=== PATIENT | male | born 1975 | race Caucasian/White ===

== ENCOUNTER 2019-07-31 13:15 | Emergency (ER) | payer OTHER, MEDICAID, SELFPAY ==
[2019-07-31 13:25] VITALS: BP 172/104; PULSE 70; RESP 16; TEMP 37.2; O2SAT 97
--- NOTE | 2019-07-31 15:07 | ED.BACK ---
HPI - Back Pain/Injury General Chief Complaint: Back Pain/Injury Stated Complaint: hurt spine/pain started 4 weeks ago/cant feel foot Time Seen by Provider: 07/31/19 13:52 Source: patient Mode of arrival: Ambulatory Limitations: no limitations History of Present Illness HPI Narrative: Patient comes emergency department complaining of low back pain and left foot numbness that his gotten progressively worse over the last few weeks. The patient has also had intermittent pain shooting down through his left buttock to his knee. Patient states that he injured his back about a year ago while doing some heavy lifting. He never did have any medical evaluation at that time and states that he has had some back pain since but that has been manageable. However, about a month and half ago, the pain seemed to start getting worse and patient states that he was seen at the [facility], at which time he was started on a prednisone taper. Patient states he felt much better on the taper. However, the pain began to get worse again after the steroid course was completed. Patient states he made an appointment with his new primary care physician's office, but he is not able to be seen by that clinic until late August. Patient states that his left foot is now completely numb and that sometimes he has difficulty picking the foot up because the numbness. Patient denies any difficulty controlling bowels or bladder. Related Data Home Medications Medication Instructions Recorded Confirmed ibuprofen 200 mg PO PRN PRN 07/31/19 07/31/19 Previous Rx's Medication Instructions Recorded hydrocodone-acetaminophen 2 tab PO Q4H PRN #20 tab 07/31/19 prednisone See Rx Instructions .ROUTE 07/31/19 .COMPLEX #39 tab Allergies Allergy/AdvReac Type Severity Reaction Status Date / Time No Known Drug Allergies Allergy Verified 07/31/19 14:49 Review of Systems Constitutional Constitutional: Denies chills, Denies fatigue, Denies fever(s), Denies frequent falls, Denies lethargy and Denies weakness Eyes Eyes: Denies change in vision, Denies eye discharge, Denies irritation and Denies loss of vision ENT Ears, Nose, Mouth, and Throat: Denies change in voice, Denies dizziness, Denies neck pain, Denies sore throat and Denies throat swelling Cardiovascular Cardiovascular: Denies chest pain, Denies irregular heart rhythm, Denies lightheadedness, Denies palpitations, Denies dyspnea, Denies dyspnea on exertion and Denies orthopnea Respiratory Respiratory: Denies cough, Denies dyspnea, Denies dyspnea on exertion and Denies wheezing Gastrointestinal Gastrointestinal: Denies abdominal pain, Denies change in bowel habits, Denies diarrhea, Denies nausea and Denies vomiting Genitourinary Genitourinary: Denies hematuria, Denies flank pain, Denies urinary incontinence and Denies urinary urgency Musculoskeletal Musculoskeletal: Reports back pain, Denies muscle weakness, Denies neck pain, Reports numbness and Denies tingling Integumentary/Breasts Skin/Breast: Denies pruritus, Denies erythema, Denies rash and Denies wounds Neurologic Neurologic: Denies behavioral changes, Denies confusion, Denies dizziness, Denies frequent falls, Denies loss of vision, Reports numbness, Denies tingling and Denies weakness Psychiatric Psychiatric: Denies anxiety, Denies behavioral changes, Denies confusion, Denies depression, Denies homicidal ideation and Denies suicidal ideation Endocrine Endocrine: Denies fatigue, Denies flushing and Denies palpitations Hematologic/Lymphatic Hematologic/Lymphatic: Denies easy bruising Allergic/Immunologic Allergic/Immunologic: Denies urticaria, Denies throat swelling and Denies wheezing Patient History Medical History Low back pain (Acute) Social History Smoking Status: Former smoker Smoking Status: Former smoker Exam Initial Vital Signs Initial Vital Signs: Vital Signs Temperature 99.0 F 07/31/19 13:25 Pulse Rate 70 07/31/19 13:25 Respiratory Rate 16 07/31/19 13:25 Blood Pressure 172/104 H 07/31/19 13:25 Pulse Oximetry 97 07/31/19 13:25 Const General: cooperative and well developed Nutritional Appearance: well nourished Orientation: alert, awake, oriented x3 and not confused [facility] Head: normocephalic and atraumatic Ears: external ears normal Nose: external nose normal and No nasal discharge Face and sinus: face symmetric and No dry mucous membranes Mouth: oral mucosae normal and moist mucous membranes Teeth and gingiva: dentition normal Eyes General: appearance normal, both eyes and all related structures Eyelids: eyelids normal Conjunctivae: conjunctivae normal Sclera: sclerae normal Pupils: PERRL EOM: EOM intact bilaterally Neck Neck: normal visual inspection, trachea midline, No lymphadenopathy, No midline deformity and No JVD Lymphatic: No lymphedema Chest Chest: normal inspection of the chest Resp Effort & Inspection: normal respiratory effort, able to speak in complete sentences, no respiratory distress and no use of accessory muscles Auscultation: clear to auscultation bilaterally, no rales, no rhonchi and no wheezes Cardio Rate: regular rate Rhythm: regular rhythm Heart Sounds: no click, no gallops, no murmurs and no rubs Pulses: normal peripheral pulses GI Inspection: non-distended Palpation: soft, no hepatosplenomegaly, No guarding, No pulsatile mass and No tender Auscultation: normal bowel sounds Back/Spine/Pelvis Cervical Spine: cervical ROM normal Other: Patient has tenderness of the left lumbar paraspinal musculature along the L4-5 area maximally he, with diminishing tenderness more superiorly. No tenderness or step-off of the spine itself. Skin General: no rashes or lesions noted, No jaundice and No petechiae Neuro General: alert, awake, oriented x3, gait normal and no focal motor deficits Cranial Nerves: CN's II-XI intact bilaterally Cognition: normal cognition Speech: speech normal Motor: muscle tone normal throughout Other: Patient walks somewhat stiffly but on a narrow based gait. No foot drop is appreciated exam. Extrem General: full ROM, no clubbing, cyanosis or edema, no pedal edema and no calf tenderness Psych Appearance: well kempt Mental Status: mental status grossly normal Attitude: cooperative Thought Content: normal and suicidality Judgment: judgment good Course Course Course Narrative: The patient was treated symptomatically with Toradol and prednisone in the emergency department and sent for a noncontrast MRI of the low spine. This did show degenerative changes and an annular tear. The changes were mostly right-sided, and I discussed with the patient that his left-sided symptoms may be due to posturing or favoring the right side. He does have some sciatic and radicular symptoms, and we have discussed symptomatic management at home, as well as the usual indications for return. I've also refilled the patient's antihypertensives. We did call the patient's primary care clinic and have been able to move his appointment up to August 08. The patient is agreeable to this plan. I've prescribed prednisone and hydrocodone for the patient for home. Orders Ordered: ED Orders 07/31/19 15:11 MR lumbar spine wo con Stat Discontinued Medications Ketorolac Tromethamine (Toradol) 30 mg IM NOW ONE Stop: 07/31/19 15:05 Last Admin: 07/31/19 15:18 Dose: 30 mg Documented by: Prednisone (Deltasone) 60 mg PO NOW ONE Stop: 07/31/19 15:05 Last Admin: 07/31/19 15:17 Dose: 60 mg Documented by: Vital Signs Vital signs: Vital Signs - 8 hr 07/31/19 13:25 Temperature 99.0 F Pulse Rate 70 Respiratory Rate 16 Blood Pressure 172/104 H Pulse Oximetry 97 MDM - Back Pain/Injury Medical Records Attestation: I reviewed the patient's medical records. Imaging Data MRI lumbar spine: Radiologist's Impression: PROCEDURE: MR LUMBAR SPINE WO CON INDICATIONS: low back pain, progressive LLE numbness, foot drop TECHNIQUE: Noncontrast sagittal T1 spin echo and T2 fast echo, sagittal STIR, axial T1 and T2 fast spin echo through the lumbar spine. In cases with scoliosis, additional coronal T2 fast spin echo may be performed. COMPARISON: None. FINDINGS: Image quality: Excellent. Alignment and Curvature: Minimal levoconvex scoliotic curvature is seen. Minimal retrolisthesis is seen at L3-L4. Minimal anterolisthesis is seen at the L4-L5 level. Bone Marrow: Marrow is of normal overall signal. No acute vertebral body compression fractures. Spinal Cord: Conus medullaris terminates at the T12-L1 level. Visualized cord demonstrates normal signal and size. Paraspinous Soft Tissues: No paravertebral masses. T12-L1: Normal appearance. L1-L2: Normal appearance. L2-L3: The disc height is well-preserved. Loss of disc signal is seen at this level. There is a faintly seen annular fissure present severely, as on series 2 image 10. Mild generalized disc bulge is seen. No significant neural foraminal or central canal narrowing can be seen. L3-L4: The disc height is well-preserved. Loss of disc signal is seen at this level. Mild to moderate disc bulge is seen, which is eccentric to the left. [id number] facet hypertrophy is seen. There is moderate bilateral neural foraminal narrowing seen at this level. Mild to moderate central canal narrowing is seen. L4-L5: The disc height and disc signal are relatively well-preserved. Moderate disc bulge is seen, which is eccentric to the right. Moderate facet joint hypertrophy is seen. There is moderate to severe right-sided neural foraminal narrowing seen, with associated compression upon the exiting right L4 nerve root. There is moderate left-sided neural foraminal narrowing seen. Moderate central canal narrowing is seen at L5-S1: Normal appearance. IMPRESSION: Degenerative changes are seen, including moderate to severe right-sided neural foraminal narrowing at L4-L5 level, with associated compression upon the exiting right nerve root. An annular fissure is present posteriorly at L2-L3 level. Dictated by: Epifanio Chiu M.D. on 07/31/2019 at 14:52 Approved by: Epifanio Chiu M.D. on 07/31/2019 at 14:56 Discharge Plan Departure Patient Disposition: Home Clinical Impression: Degenerative joint disease (DJD) of lumbar spine Qualifiers: Spinal osteoarthritis complication: with radiculopathy Qualified Code(s): M47.26 - Other spondylosis with radiculopathy, lumbar region Discharge Date/Time: 07/31/19 16:29 Instructions: DI for Low Back Pain Activity Restrictions/Additional Instructions: Your lumbar spine MRI shows degeneration the low spine, with narrowing of the openings from which the nerves exit. Interestingly, the changes are most prominent on the right side. The left-sided symptoms may be due somewhat to posturing or compensation for the right-sided spinal issues. Please take the medications prescribed for discomfort, as needed. Please also get back on your high blood pressure medications, as directed. Keep your appointment with your doctor for next week, as scheduled, on August 08 at 7:45 a.m. Prescriptions: New prednisone 20 mg tablet See Rx Instructions .ROUTE .COMPLEX Qty: 39 RF: 0 hydrocodone-acetaminophen 5-325 mg tablet 2 tab PO Q4H PRN (Reason: pain) Qty: 20 RF: 0 No Action ibuprofen 200 mg Tablet 200 mg PO PRN PRN (Reason: pain) RF: 0
--- NOTE | 2019-07-31 15:11 | DI.MRI.S_ITS ---
PROCEDURE: MR LUMBAR SPINE WO CON INDICATIONS: low back pain, progressive LLE numbness, foot drop TECHNIQUE: Noncontrast sagittal T1 spin echo and T2 fast echo, sagittal STIR, axial T1 and T2 fast spin echo through the lumbar spine. In cases with scoliosis, additional coronal T2 fast spin echo may be performed. COMPARISON: None. FINDINGS: Image quality: Excellent. Alignment and Curvature: Minimal levoconvex scoliotic curvature is seen. Minimal retrolisthesis is seen at L3-L4. Minimal anterolisthesis is seen at the L4-L5 level. Bone Marrow: Marrow is of normal overall signal. No acute vertebral body compression fractures. Spinal Cord: Conus medullaris terminates at the T12-L1 level. Visualized cord demonstrates normal signal and size. Paraspinous Soft Tissues: No paravertebral masses. T12-L1: Normal appearance. L1-L2: Normal appearance. L2-L3: The disc height is well-preserved. Loss of disc signal is seen at this level. There is a faintly seen annular fissure present severely, as on series 2 image 10. Mild generalized disc bulge is seen. No significant neural foraminal or central canal narrowing can be seen. L3-L4: The disc height is well-preserved. Loss of disc signal is seen at this level. Mild to moderate disc bulge is seen, which is eccentric to the left. Huvj-jc-[id number] facet hypertrophy is seen. There is moderate bilateral neural foraminal narrowing seen at this level. Mild to moderate central canal narrowing is seen. L4-L5: The disc height and disc signal are relatively well-preserved. Moderate disc bulge is seen, which is eccentric to the right. Moderate facet joint hypertrophy is seen. There is moderate to severe right-sided neural foraminal narrowing seen, with associated compression upon the exiting right L4 nerve root. There is moderate left-sided neural foraminal narrowing seen. Moderate central canal narrowing is seen at L5-S1: Normal appearance. IMPRESSION: Degenerative changes are seen, including moderate to severe right-sided neural foraminal narrowing at L4-L5 level, with associated compression upon the exiting right nerve root. An annular fissure is present posteriorly at L2-L3 level. Dictated by: Epifanio Chiu M.D. on 07/31/2019 at 14:52 Approved by: Epifanio Chiu M.D. on 07/31/2019 at 14:56
[2019-07-31] MEDS: predniSONE 20 MG TABLET 60 MG PO (15:17)
[2019-07-31] MEDS: KETOROLAC 60 MG/2 ML VIAL 30 MG IM (15:18)
--- NOTE | 2019-07-31 15:30 | PC.NURSE ---
Taken to MRI
== END 2019-07-31 16:29 | disposition home or self-care (01) ==
PROVIDERS: Emergency Provider Emergency Medicine
DX: M47.26 Other spondylosis with radiculopathy, lumbar region (principal)
CPT/HCPCS: 72148; 96372; 99283; J1885

== ENCOUNTER 2019-10-19 16:06 | Emergency (ER) | payer OTHER, SELFPAY ==
[2019-10-19 16:27] VITALS: BP 164/100; PULSE 92; RESP 16; TEMP 36.8; O2SAT 97; BMI 34.0
--- NOTE | 2019-10-19 17:31 | DI.RAD.S_ITS ---
PROCEDURE: XR CHEST 2V INDICATIONS: sob, fever TECHNIQUE: 2 views of the chest were acquired. COMPARISON: None. FINDINGS: Surgical changes and devices: None. Lungs and pleura: Lungs are clear. No pleural effusions or pneumothorax. Mediastinum: Mediastinal contours are normal. Heart size is normal. Bones and chest wall: No suspicious bony abnormalities. Soft tissues appear unremarkable. IMPRESSION: No acute disease. Dictated by: Johan Bermeo M.D. on 10/19/2019 at 18:13 Approved by: Johan Bermeo M.D. on 10/19/2019 at 18:14
[2019-10-19] MEDS: ALBUTEROL HFA PREPACK 1 BOX MISC (18:29)
[2019-10-19 18:43] VITALS: PULSE 80; O2SAT 95
[2019-10-19 19:11] VITALS: BP 160/97; PULSE 87; O2SAT 97
[2019-10-19 19:21] VITALS: BP 160/97; PULSE 89; RESP 16; O2SAT 97
--- NOTE | 2019-10-19 19:33 | ED_ITS ---
HPI - URI/Sore Throat <CARLOS Conklin - Last Filed: 10/19/19 19:42> General Chief Complaint: Upper Respiratory Symptoms Stated Complaint: SOB FEVER COUGH Time Seen by Provider: 10/19/19 16:33 Source: patient Mode of arrival: Ambulatory Limitations: no limitations History of Present Illness HPI Narrative: The patient is a 44-year-old male former smoker who presents with a chief complaint of fever and cough he has seen at an outside facility 2-3 days ago and had a carotid virus swab done then. He states he had a round of azithromycin and still feels like he might have pneumonia. He states he was having fevers up until today. He has tried his 's inhaler with slight improvement, but states that he does not feel like it last for a long time. He denies any abdominal pain current nausea vomiting. He states he over feels improved, he would like a chest x-ray to make sure that he does not have pneumonia. He states he has not had a chest x-ray throughout his illness, which has overall lasted about a week. He states he feels tightness chest, but only when taking a deep breath Related Data Home Medications Medication Instructions Recorded Confirmed ibuprofen 200 mg PO PRN PRN 07/31/19 07/31/19 Previous Rx's Medication Instructions Recorded hydrocodone-acetaminophen 2 tab PO Q4H PRN #20 tab 07/31/19 prednisone See Rx Instructions .ROUTE 07/31/19 .COMPLEX #39 tab Allergies Allergy/AdvReac Type Severity Reaction Status Date / Time No Known Drug Allergies Allergy Verified 07/31/19 14:49 Review of Systems <AMANDO Conklin - Last Filed: 10/19/19 19:42> Review of Systems Narrative: GENERAL: See HPI HEENT: Denies sinus pain, ear pain, sore throat, difficulty swallowing, dizziness. RESPIRATORY: See HPI CARDIOVASCULAR: See HPI GASTROINTESTINAL: Denies nausea, vomiting, abdominal pain, diarrhea, constipation, melena. : Denies dysuria, frequency, incontinence, hematuria, urinary retention. MUSCULOSKELETAL: denies weakness, joint pain, or bony pain SKIN: Denies rash, skin lesions, or other NEUROLOGIC: Denies weakness, headache, numbness, change in speech, confusion, seizures, incoordination. PSYCHIATRIC: No concerning psychosocial issues. 12 point review of systems is negative except for those stated above Patient History <Lina EdenNEW-BC - Last Filed: 10/19/19 19:42> Social History Smoking Status: Former smoker Smoking Status: Former smoker Substance Use Type: does not use Exam <Lina EdenNEW-BC - Last Filed: 10/19/19 19:42> Narrative Exam Narrative: GENERAL: This is a well-nourished, well-developed patient, in no acute distress HEAD: Atraumatic. Normocephalic. No temporal or scalp tenderness. EYES: Pupils equal round and reactive. Extraocular motions intact. No scleral icterus. No injection or drainage. ENT: Nose without bleeding, purulent drainage or septal hematoma. Throat without erythema, tonsillar hypertrophy or exudate. Uvula midline. Airway patent. NECK: Trachea midline. No JVD or lymphadenopathy. Supple, nontender, no meningeal signs. CARDIOVASCULAR: Regular rate and rhythm RESPIRATORY: Clear to auscultation. Breath sounds equal bilaterally. No wheezes, rales, or rhonchi. No cough. No increased respiratory effort. Speaking full sentences. No wheezing. GASTROINTESTINAL: Abdomen soft, non-tender, nondistended. No hepato- splenomegaly, or palpable masses. No guarding. EXTREMITIES: No clubbing, cyanosis, or edema. No joint tenderness, effusion, or edema noted. BACK: Nontender without deformity or crepitance. No flank tenderness. NEURO: AOx3. SKIN: No rash or erythema on visible skin Initial Vital Signs Initial Vital Signs: Vital Signs Temperature 98.3 F 10/19/19 16:27 Pulse Rate 92 H 10/19/19 16:27 Respiratory Rate 16 10/19/19 16:27 Blood Pressure 164/100 H 10/19/19 16:27 Pulse Oximetry 97 10/19/19 16:27 <Sukhjinder Casiano DO - Last Filed: 10/20/19 01:41> Initial Vital Signs Initial Vital Signs: Vital Signs Temperature 98.3 F 10/19/19 16:27 Pulse Rate 92 H 10/19/19 16:27 Respiratory Rate 16 10/19/19 16:27 Blood Pressure 164/100 H 10/19/19 16:27 Pulse Oximetry 97 10/19/19 16:27 Course <AMANDO Conklin - Last Filed: 10/19/19 19:42> Orders Ordered: ED Orders 10/19/19 17:31 XR chest 2V Stat RT Consult Eval and Treat NOW 10/19/19 18:16 Respiratory Panel (Film Array) Stat Discontinued Medications Albuterol (Ventolin Hfa Prepack) 1 box [facility] SEEINSTR ONE Stop: 10/19/19 18:20 Last Admin: 10/19/19 19:01 Dose: Not Given Documented by: EMIL Albuterol (Ventolin Hfa Prepack) 1 box [facility] SEEINSTR ONE Stop: 10/19/19 18:21 Last Admin: 10/19/19 18:29 Dose: 1 box Documented by: STISSAP Vital Signs Vital signs: Vital Signs - 8 hr 10/19/19 18:43 10/19/19 19:11 10/19/19 19:21 Pulse Rate 80 87 89 Respiratory Rate 16 Blood Pressure 160/97 H Blood Pressure [Left Arm] 160/97 H Pulse Oximetry 95 97 97 <Sukhjinder Casiano DO - Last Filed: 10/20/19 01:41> Orders Ordered: ED Orders 10/19/19 17:31 XR chest 2V Stat RT Consult Eval and Treat NOW 10/19/19 18:16 Respiratory Panel (Film Array) Stat Discontinued Medications Albuterol (Ventolin Hfa Prepack) 1 box [facility] SEEINSTR ONE Stop: 10/19/19 18:20 Last Admin: 10/19/19 19:01 Dose: Not Given Documented by: EMIL Albuterol (Ventolin Hfa Prepack) 1 box [facility] SEEINSTR ONE Stop: 10/19/19 18:21 Last Admin: 10/19/19 18:29 Dose: 1 box Documented by: STISSAP Vital Signs Vital signs: Vital Signs - 8 hr 10/19/19 18:43 10/19/19 19:11 10/19/19 19:21 Pulse Rate 80 87 89 Respiratory Rate 16 Blood Pressure 160/97 H Blood Pressure [Left Arm] 160/97 H Pulse Oximetry 95 97 97 MDM - URI/Sore Throat <AMANDO Conklin - Last Filed: 10/19/19 19:42> Lab Data Labs: Lab Results 10/19/19 Range/Units 18:16 Chlamy pneumoniae PCR Not detected (Not Detect) Adenovirus (PCR) Not detected (Not Detect) B.parapertussis DNA PCR Not detected (Not Detect) Coronavirus OC43 (PCR) Not detected (Not Detect) Coronavirus HKU1 (PCR) Not detected (Not Detect) Coronavirus 229E (PCR) Not detected (Not Detect) Coronavirus NL63 (PCR) Not detected (Not Detect) Human Metapneumovir PCR Not detected (Not Detect) Influenza Type A (PCR) Not detected (Not Detect) Influenza Type B (PCR) Not detected (Not Detect) M. pneumoniae (PCR) Not detected (Not Detect) Parainfluenza 1 (PCR) Not detected (Not Detect) Parainfluenza 2 (PCR) Not detected (Not Detect) Parainfluenza 3 (PCR) Not detected (Not Detect) Parainfluenza 4 (PCR) Not detected (Not Detect) RSV (PCR) Not detected (Not Detect) Entero/Rhino (PCR) Not detected (Not Detect) Imaging Data Chest x-ray: Radiologist's Impression: [address] [place] [id number] XRay Report Signed Patient: Senthil Rubi [facility]#: [id number] : 1975Acct:[id number] Age/Sex: 44 / MDate of Service: 10/19/19 Loc: ED Accession Number: [id number] Procedure: XR chest 2V Ordering Provider: Lina EdenP- PROCEDURE: XR CHEST 2V INDICATIONS: sob, fever TECHNIQUE: 2 views of the chest were acquired. COMPARISON: None. FINDINGS: Surgical changes and devices: None. Lungs and pleura: Lungs are clear. No pleural effusions or pneumothorax. Mediastinum: Mediastinal contours are normal. Heart size is normal. Bones and chest wall: No suspicious bony abnormalities. Soft tissues appear unremarkable. IMPRESSION: No acute disease. Dictated by: Johan Bermeo M.D. on 10/19/2019 at 18:13 Approved by: Johan Bermeo M.D. on 10/19/2019 at 18:14 MDM Narrative Medical decision making narrative: The patient is a 44-year-old male who presents with a chief complaint of continuing cough and fever. Chest x-ray shows no pneumonia. He is as oxygenating well. Was evaluated by respiratory therapist and received albuterol with spacer teaching. Viral panel was taken, called patient with negative results. Discussed at length self quarantine until results come back from outside facility. Patient states accordance and has no questions or concerns upon discharge states he feels comfortable and ready to go home. No questions or concerns upon discharge and states understanding of return precautions and follow-up care. <Sukhjinder Oh, DO - Last Filed: 10/20/19 01:41> Lab Data Labs: Lab Results 10/19/19 Range/Units 18:16 Chlamy pneumoniae PCR Not detected (Not Detect) Adenovirus (PCR) Not detected (Not Detect) B.parapertussis DNA PCR Not detected (Not Detect) Coronavirus OC43 (PCR) Not detected (Not Detect) Coronavirus HKU1 (PCR) Not detected (Not Detect) Coronavirus 229E (PCR) Not detected (Not Detect) Coronavirus NL63 (PCR) Not detected (Not Detect) Human Metapneumovir PCR Not detected (Not Detect) Influenza Type A (PCR) Not detected (Not Detect) Influenza Type B (PCR) Not detected (Not Detect) M. pneumoniae (PCR) Not detected (Not Detect) Parainfluenza 1 (PCR) Not detected (Not Detect) Parainfluenza 2 (PCR) Not detected (Not Detect) Parainfluenza 3 (PCR) Not detected (Not Detect) Parainfluenza 4 (PCR) Not detected (Not Detect) RSV (PCR) Not detected (Not Detect) Entero/Rhino (PCR) Not detected (Not Detect) Discharge Plan Departure Patient Disposition: Home Clinical Impression: Cough Upper respiratory infection Qualifiers: URI type: unspecified viral URI Qualified Code(s): J06.9 - Acute upper respiratory infection, unspecified Discharge Date/Time: 10/19/19 19:22 Instructions: How to Use a Metered-Dose Inhaler, DI for Cough -- Adult, DI for Viral Upper Respiratory Infection -- Adult Activity Restrictions/Additional Instructions: Thank you for trusting us with your care today. Your x-ray shows no acute pneumonia. Please follow-up with your outside facility regarding your coronavirus testing Please use the inhaler with spacer as needed, 2 puffs every 4-6 hours I will call you at [phone] when your respiratory panel results come in later this evening Please come back to the emergency department for any acute concerns As discussed, please continue to self quarantine, cover cough, practice good hand hygiene etcetera Please follow-up with primary care provider in the next few days Prescriptions: No Action ibuprofen 200 mg Tablet 200 mg PO PRN PRN (Reason: pain) RF: 0 prednisone 20 mg tablet See Rx Instructions .ROUTE .COMPLEX Qty: 39 RF: 0 hydrocodone-acetaminophen 5-325 mg tablet 2 tab PO Q4H PRN (Reason: pain) Qty: 20 RF: 0 <Sukhjinder Casiano DO - Last Filed: 10/20/19 01:41> [facility] Attestation: I was immediately available in the department for consultation. This documentation has been reviewed and I agree with assessment and plan. Supervised by Sukhjinder Casiano DO
[2019-10-19 19:35] LABS: Adenovirus Not Detected (Not Detect); Bordetella pertussis Not Detected (Not Detect); Chlamydophila pneumoniae Not Detected (Not Detect); Coronavirus 229E Not Detected (Not Detect); Coronavirus HKU1 Not Detected (Not Detect); Coronavirus NL 63 Not Detected (Not Detect); Coronavirus OC43 Not Detected (Not Detect); Human Metapneumovirus Not Detected (Not Detect); Human Rhinovirus/Enterovirus Not Detected (Not Detect); Influenza A Not Detected (Not Detect); Influenza B Not Detected (Not Detect); Mycoplasma pneumoniae Not Detected (Not Detect); Parainfluenza Virus 1 Not Detected (Not Detect); Parainfluenza Virus 2 Not Detected (Not Detect); Parainfluenza Virus 3 Not Detected (Not Detect); Parainfluenza Virus 4 Not Detected (Not Detect); Respiratory Syncytial Virus Not Detected (Not Detect)
== END 2019-10-19 19:22 | disposition home or self-care (01) ==
PROVIDERS: Emergency Provider Nurse Practitioner Family
DX: J06.9 Acute upper respiratory infection, unspecified (principal); R05 Cough; R50.9 Fever, unspecified; R06.02 Shortness of breath
CPT/HCPCS: 71046; 87633; 94640; 99283

== ENCOUNTER → 2020-05-03 11:24 | Outpatient (CLI) | payer OTHER, SELFPAY ==
[2020-05-05 08:03] LABS: COVID19 Sendout Not Detected (Not Detect)
== END ==
PROVIDERS: Visit Provider Physician Assistant
DX: Z01.812 Encounter for preprocedural laboratory examination (principal)
CPT/HCPCS: 87635

== ENCOUNTER 2020-05-07 14:47 | Observation (INO) | payer OTHER, SELFPAY ==
[2020-04-29 09:00] VITALS: BMI 34.2
[2020-05-06] VITALS (18 sets, daily range): BP systolic 117–139; BP diastolic 70–92; PULSE 62–92; RESP 8–18; TEMP 35.6–37.5; O2SAT 93–98; BMI 33.0
--- NOTE | 2020-05-06 | DI.RAD.S_ITS ---
PROCEDURE: XR LUMBAR SPINE 2-3V INDICATIONS: laminectomy TECHNIQUE: 2 views of the lumbar spine were acquired. [facility] [place] [place] [place], XR LUMBAR SPINE FLEXION EXTENSION, 12/21/2019, 13:33. FINDINGS: 2 fluoroscopic images of the lumbar spine demonstrate interval posterior/interbody fusion at the L4-L5 level with fixation hardware in expected positions as well as the intervertebral spacer device. Mild spondylolisthesis at the L4-L5 level. IMPRESSION: Interval posterior/interbody fusion L4-L5 with trace spondylolisthesis of the L4 vertebral body over L5. Dictated by: Adalberto ALVARADO Interpreted: Kiya Rodriguez MD on 05/06/2020 at 10:17 Approved by: Kiya Rodriguez M.D. on 05/07/2020 at 13:10
--- NOTE | 2020-05-06 07:12 | PM.PREOP ---
Pre-operative Note COVID-19 COVID-19 status: Negative Result date/Date tested (Pos, Neg/Pending): 05/03/20 Interval Note History & Physical reviewed/Exam performed by Physician: Yes Changes to H&P: No
--- NOTE | 2020-05-06 07:30 | SUR.PREOP ---
pt has baseline numbness that radiates from left hip into lower left leg.
[2020-05-06] MEDS: CEFAZOLIN 2 GM/100 ML FROZ.PIGGY IV ×2 (07:45→15:23)
--- NOTE | 2020-05-06 08:15 | SUR.OPER ---
Prone on spine table, head in foam head support, padded chest and pelvic supports, gel pad at knees, lower legs supported by pillows; nipples, genitalia and toes free of pressure, arms secured on foam padded arm boards at <90 degrees abduction. Tape over blanket at thigh secured to table.
[2020-05-06] MEDS: SODIUM CHLORIDE 0.9% 1,000 ML, GENTAMICIN 80 MG IRR (08:23)
[2020-05-06] MEDS: VANCOMYCIN 1,000 MG VIAL 1000 MG TOP (08:24)
[2020-05-06] MEDS: THROMBIN (RECOMBINANT) 5,000 UNIT VIAL 5000 UNIT TOP (08:24)
[2020-05-06] MEDS: BUPIVACAINE 0.5% (PF) 4 ML, MORPHINE-PF 4 MG, BUTORPHANOL 1 MG, fentaNYL 100 MCG INJ (09:31)
--- NOTE | 2020-05-06 10:13 | PM.OP.1 ---
Operative Date/Time/Diagnoses Date of procedure: 05/06/20 Time of procedure: 10:13 Pre-op diagnosis: Lumbar stenosis with radiculopathy Lumbar spondylolisthesis Post-op diagnosis: same Procedure & Clinicians Procedure: L4-5 TLIF (posterior/posterior interbody fusion) with cage L4-5 screws Iliac crest bone graft aspirate L4-5 laminectomy Use of microscope Placement of epidural catheter Same procedure as scheduled: Yes Indications: [age] year old male with intractable pain from stenosis and spondylolisthesis. They had failed conservative management and requested operative intervention. Risks and benefits of surgery were discussed and appropriate consents were obtained. Surgeon: Laci Shearer Mechanic Marine Engine: Katrina Fernandez Anesthesia Type: General Operative Notes Findings: None Closure Type: primary Specimen(s): none sent Prosthetic devices, grafts, tissues, transplants, or devices: NuVasive MAS Reline screws Globus Rise cage Applied: catheter Estimated Blood Loss (mL): 10 Procedure in detail: The patient was brought to the operating room and intubated on the table. A time-out was performed. They were then rolled over to the well-padded Pablo table in the prone position. Preoperative antibiotics were given. The back was prepped and draped in the standard sterile fashion. Using fluoroscopy, a 4 cm longitudinal incision was made to the well-marked left of the midline. We used Bovie to come down to and split the lumbodorsal fascia. Using fluoroscopy and monitoring, we then percutaneously placed Jamshidi needles down the pedicles of L4 and L5 on the left side. These were changed out to guidewires and then we tapped and then placed the NuVasive MAS Reline screw shanks. We then opened up the retractors and used Bovie to clear up the posterolateral gutter as well as medially along the lamina to the spinous processes. A bur was used to decorticate the transverse processes. We brought in the microscope. Using a combination of bur and Kerrison rongeurs, a laminectomy was performed from the left side. We cleared over past the midline and carefully depressed the dura until we were able to decompress the opposite side. We cleared out the neural foramen. This completed the laminectomy at L4-5. This was separate and distinct from the TLIF approach as we were decompressing the canal bilaterally and the nerves. We then began the TLIF prep. A complete facetectomy was performed on this side at L4-5. We carefully cleaned up the remainder of the foramen until we could easily retract the exiting root as well as clearing medially below the dura and expose the disc space. The disc was prepped with bipolar and then an annulotomy was performed. We performed a diskectomy using a combination of paddles, nelson, pituitaries, and curettes. We distracted the disc using a paddle and locked the retractor in an open position. We then filled the disc space with Osteocel bone graft. We then placed the globus Rise cage under fluoroscopy and then filled this in with more bone graft. The distraction on the retractor was released to compress down. This completed the posterior interbody fusion portion of the TLIF at L4-5. An epidural catheter was then prepped with 4 mL of 0.5% Marcaine, 1 mg Stadol, 4 mg Duramorph, and 100 mcg of fentanyl and placed in the spinal canal by carefully depressing the dura and advancing it 6 cm cephalad under the remaining lamina without resistance. We then placed the screw heads, anil, and locked down the set screws. The wound was copiously irrigated. A small stab incision was made over the PSIS. We used a Jamshidi needle to aspirate several mL of bone marrow from the pelvis. This was mixed with the remaining Osteocel and combined with all of the locally harvested bone graft and placed in the posterolateral gutter for the posterior fusion of the TLIF at L4-5. The muscle fascia was closed. The epidural catheter was then injected without resistance and the catheter was pulled. We then went to the opposite side. Again using fluoroscopy, a 3 cm incision was made and Bovie was used to come down to split the fascia. Using neural monitoring and fluoroscopy, Jamshidi needles were advanced down the pedicles of L4 and L5 on the right side. These were switched over guidewires, tapped, and screws placed. We then placed a anil and locked the set screws on this side. The wound was irrigated. The fascia was closed. Vancomycin powder was placed in the wounds. The superficial and skin were closed. A sterile dressing was placed. The patient was then rolled over extubated and brought to recovery room without complications. Complications: none Post-operative Condition: stable Disposition: PACU Plan for aftercare: Overnight admission. Up with PT as tolerated.
--- NOTE | 2020-05-06 10:32 | SUR.PHASEI ---
Pt arrived, patent airway, pt denied pain, sleepy but oriented x 4.
[2020-05-06] MEDS: LORazepam 2 MG/ML INJ 0.5 MG IV (10:42)
--- NOTE | 2020-05-06 10:49 | SUR.PHASEI ---
Report attempted, RN unavailable, Radha stated he would call back, pt denied pain, dressing c/d/i when turned to l side. Feet moving side to side, pt states he does this when he gets nervous, reassured pt the surgery went well and that Dr. Cross spoke with family, lorazepam given.
[2020-05-06] MEDS: ONDANSETRON 4 MG/2 ML INJ IV ×2 (10:58→19:12)
--- NOTE | 2020-05-06 11:04 | SUR.PHASEI ---
Pt had sudden onset of nausea, vomited clear phelm and felt better after ondansetron given. Report called to gen when he called back. Pt to be transported up to room on at 2/l.
[2020-05-06] MEDS: hydrOXYzine 50 MG/ML INJ 25 MG IM (11:15)
--- NOTE | 2020-05-06 11:21 | SUR.PHASEI ---
Pt about to be transported up to room and had another episode of nausea and vomiting, same clear phelm, queaze to bedside, cool wash cloth to forehead, and pt stated when asked what helped last time stated, they gave me a shot of vistaril. Vistaril given. Pt states nausea gone.
--- NOTE | 2020-05-06 11:38 | PC.NURSE ---
Day shift: Pt on AC unit at approx 1138 from PACU.
--- NOTE | 2020-05-06 11:45 | SUR.PHASEI ---
Pt left with BARRERA Galindo bed low, locked and call frost in hand, dressing remained c/d/i. Pt left in stable condition.
[2020-05-06] MEDS: HYDROMORPHONE 0.5 MG INJ IV ×3 (11:58→22:00)
[2020-05-06] MEDS: LACTATED RINGERS 1,000 ML 125 ML IV ×2 (11:58→20:27)
[2020-05-06] MEDS: OXYCODONE/ACETAMINOPHEN 5/325 TABLET 2 TAB PO (14:05)
[2020-05-06] MEDS: GABAPENTIN 600 MG TABLET PO ×2 (14:05→21:00)
[2020-05-06] MEDS: hydrOXYzine pamoate 25 MG CAPSULE PO (14:05)
[2020-05-06] MEDS: CELECOXIB 200 MG CAPSULE 400 MG PO (14:10)
--- NOTE | 2020-05-06 16:36 | PT.IIE ---
Current Diagnoses Spinal stenosis, lumbar region with neurogenic claudication (05/06/20) Strain of muscle, fascia and tendon of lower back, subsequent encounter (05/06/20) Surgery Performed Operation Date: 05/06/20 07:45 Actual Procedures p L45 laminectomy & instrumented fusion w/ bone graft - Laci Shearer MD Surgical History (Last Updated 04/29/20 @ 09:16 by Brigette Washington, RN) History of esophagogastroduodenoscopy (EGD) (Acute) Hx of appendectomy (Acute) Hx of left knee surgery (Acute) Medical History (Last Updated 04/29/20 @ 09:16 by Brigette Washington RN) Asthma (Acute) Diverticulitis (Acute) HLD (hyperlipidemia) (Acute) HTN (hypertension) (Acute) Low back pain (Acute) Pancreatitis (Acute) Sciatica (Acute) Physical Therapy Inpatient Evaluation/Re-Eval M1 PT/OT-IP Prior Functional Status Start: 05/06/20 13:11 Freq: NEEDED Status: Active Protocol: Document 05/06/20 14:22 AW (Rec: 05/06/20 14:31 AW [email or web address]) Medical Review Prior Functional Status Medical History Reviewed Yes Communication WNL. Pt is an effective verbal communicator. Mobility and Gait Pt is independent with all mobility though admits some difficulty with uneven terrain and inclines. Pt states he can walk about 1 mile. Activities of Daily Living and IADL's Pt sometimes needs assist with lower body dressing. He is otherwise independent with all I/ADL's. Social History Household Members spouse,children Living Arrangements Mobile home Number of Floors (Floors) One Floor Number of Stairs To Enter/Railing? 5 ADONIS with right rail ascending at front door. Home Environment Standard Height Toilet,Walk in Shower,Tub/Shower Home Equipment Raised Toilet Seat w/Armrests Employment Status [employer] Employed Additional Social History Comment Pt describes a tub set up which is raised from the floor level, requiring a large step up into the tub. 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 He lives in [place] with his , Lina, and his 9 yo daughter. His is currently working from home and plans to take time off to assist the pt at discharge. M2 PT-IP Current Condition Start: 05/06/20 13:11 Freq: NEEDED Status: Active Protocol: Document 05/06/20 14:22 AW (Rec: 05/06/20 15:29 AW [email or web address]) Physical Therapy Current Condition Current Condition Evaluation Date 05/06/20 Treatment Diagnosis L4-5 TLIF; difficulty in walking Onset Date 05/06/20 Precautions Lumbar Precautions Log Roll,No Twisting,Limit Bending,Lifting Restriction of 10 lbs,Gait Belt above Incisional Area M3 PT-IP Subjective Start: 05/06/20 13:11 Freq: NEEDED Status: Active Protocol: Document 05/06/20 14:22 AW (Rec: 05/06/20 15:29 AW [email or web address]) Subjective Physical Therapy Visit Type Type Initial Evaluation Visit Start Time 14:09 Visit Stop Time 15:08 Total Visit Minutes 36 Notes Split visits [id number] and [id number] to coordinate with pain med administration. SPT Anders was present and assisting with mobility. Physical Therapy Visit Comments Patient Comments Pt would like to get out of bed to see what it feels like Patient Goals Pt plans to return home at discharge. Therapy Pain Assessment Pain When Pain Assessed During Mobility Pain Present Pain Present Pain Reported Location back Intensity 7 Pain Management Techniques Re-positioning,Timing of Activity with Medications M4 PT-IP Mobility and Gait Start: 05/06/20 13:11 Freq: NEEDED Status: Active Protocol: Document 05/06/20 14:22 DE (Rec: 05/06/20 15:50 DE [id number]) PT-Bed Mobility Assessment Rolling Type of Rolling Log Rolling,Roll to Left Level of Assist Contact Guard Assistance,1 Person Assistance Supine to Sit Supine to Sit Contact Guard Assistance,1 Person Assistance Sit to Supine Sit to Supine Contact Guard Assistance,1 Person Assistance Scooting Scooting to Edge of Bed Contact Guard Assistance PT-Transfer Assessment Sit to and From Stand Sit to and from Stand Contact Guard Assistance,1 Person Assistance Equipment Transfer Assistive Device Bed Rail,Gait Belt,Front Wheeled Walker Orthotic/Prosthetic Devices or Brace: No Transfer Ability Level of Assist Contact Guard Assistance,1 Person Assistance Comments Mobility Comments Pt was lying supine with HOB elevated at ~45 as PT and SPT arrived. BP was 138/92. After lowering the HOB to flat, pt performed log rolling to the L side and sidelying to sit at EOB CGA with use of bedrail. Pt performed sit at EOB to stand transfer CGA with use of BUE pushing off the bed. Pt stood for ~30 sec while performing side to side weight shift. Pt c/o more pressure on the back through RLE WB but it was manageable. After gait training, pt performed stand to sit at EOB to sidelying on L to supine on bed CGA with use of BUE. Pt attemped to lie straight supine from sit at EOB, but was stopped and instructed to perform log rolling instead. Pt demonstrated slow movement for all transfers but tolerated them very well. Gait Assessment Gait Gait Assistance Required: Contact Guard Assist,1 Person Assist Distance (Feet) 30 Able to Maintain Weight Bearing Status Yes During Gait Assistive Devices Assistive Device Gait Belt,Front Wheeled Walker Orthotic/Prosthetic Devices or Brace: No Gait Deviations General Gait Pattern Antalgic,Decreased Stride Length,Step-to Gait Factors Limiting Gait Function Factors Limiting Gait Function Pain Comments Gait Comments Pt amb ~30 ft in the pt room CGA with use of FWW. Pt demonstrated 3-point step-to gait pattern with decreased stride length and decreased speed d/t pain. When turning, pt was instructed to turn slower in small steps in order to prevent twisting motions at the spine. PT-Balance Assessment Sitting Balance and Reactions Static Sitting Balance Ability Good Standing Balance and Reactions Static Standing Balance Ability Good Comments Other Balance Tests/Deviations/Treatment Pt demonstrated good sitting : and standing static balance without any LOB. Pt was able to shift weight side to side in standing CGA with use of FWW. M5 PT-IP Objective Assessments Start: 05/06/20 13:11 Freq: NEEDED Status: Active Protocol: Document 05/06/20 14:22 DE (Rec: 05/06/20 15:50 DE [id number]) Orientation Orientation/Cognition Level of Alertness Alert Orientation Name,Age,Birthday,Month,Date, Year,Day of Week,Place, Situation Language Function Ability No Deficits Noted Safety Awareness Understands Safety Issues Memory Description No Deficits Noted Comments WNL. No deficits noted. Gross Range of Motion Upper Extremity ROM Assessment Within Functional Limits Lower Extremity ROM Assessment Within Functional Limits Strength Upper Extremity Strength Assessment Within Functional Limits Lower Extremity Strength Assessment Bilaterally Impaired Comments Strength Comments Pt's hip strength was limited by back pain. Pt had difficulty with lifting legs off the bed. Sensation Assessment Sensation Gross Sensation Left LE Impaired Light Touch Impaired Comments Sensation Comments Pt has impaired sensation around the L knee d/t hx of multiple knee surgeries. M6 PT-IP Treatment Start: 05/06/20 13:11 Freq: NEEDED Status: Active Protocol: Document 05/06/20 14:22 AW (Rec: 05/06/20 15:29 AW [email or web address]) Physical Therapy Treatment Education Education Provided Precautions,Weight Bearing Status,Post-Op Packet,Safety Other Treatments Other Treatment Performed Provided education on role of PT, plan of care, post-op precautions, and safe use of FWW. M7 PT-IP Assessment and Plan Start: 05/06/20 13:11 Freq: NEEDED Status: Active Protocol: Document 05/06/20 14:22 AW (Rec: 05/06/20 15:29 AW [email or web address]) PT Summary Assessment and Plan Potential Rehabilitation Potential Good Status of Condition at Evaluation Evolving Summary Impairments Pain,ROM,Strength,Balance,Bed Mobility,Transfers,Gait, Activity Tolerance Assessment Summary Senthil is a 44 yo man seen for PT evaluation on POD0 following L4-5 TLIF. He is independent in all regards at baseline except requiring occasional assist with lower body dressing due to low back and left leg pain. On evaluation, pt required CGA for all mobilities. VS were stable and patient denied sudden increase in pain during movement. PT anticipates he will be safe to discharge home with spouse assist once medically cleared. He will need to clear stair training before discharge. Goals Bed Mobility Goal Standby Assistance Transfer Goal Standby Assistance,Front Wheeled Walker Gait Goal Standby Assistance,Front Wheel Walker Gait Distance - 200 feet Other Goals - up/down 5 steps with right rail ascending SBA gait and transfer goals with LRAD Days to Meet Goals 3 Frequency of Treatment Frequency Of Treatment Twice a Day Treatment Plan Physical Therapy Treatment Plan Bed Mobility Training,Transfer Training,Gait Training, Therapeutic Exercise,Balance Retraining,Post Op Education, Discharge Planning,Hot or Cold Pack,Neuromuscular Re-ed Recommendations To Nursing Amount of Assist Needed 1 Person Assist Discharge Recommendations PT Discharge Recommendations Home with Assistance Equipment Needed for Home Before may need FWW Discharge Transportation Needs at Discharge Private Vehicle
[2020-05-06] MEDS: DOCUSATE 100 MG CAPSULE PO (21:00)
[2020-05-06] MEDS: SENNOSIDES 8.6 MG TABLET 17.2 MG PO (21:00)
[2020-05-06] MEDS: CELECOXIB 200 MG CAPSULE PO (21:00)
--- NOTE | 2020-05-06 22:38 | PC.NURSE ---
Pt is A and O x 4, VSS. Nausea throughout shift, patient tried to eat dinner, emesis = 600 mLs. Good results with 4 mg IVP Zofran. Later able to tolerate clears. LS clear, HRR, + BTs. Rates pain 4-5/10.
[2020-05-07] VITALS (7 sets, daily range): BP systolic 126–145; BP diastolic 64–89; PULSE 61–85; RESP 15–18; TEMP 36.6–36.9; O2SAT 97–98
[2020-05-07] MEDS: CEFAZOLIN 2 GM/100 ML FROZ.PIGGY IV (00:56)
[2020-05-07] MEDS: HYDROMORPHONE 0.5 MG INJ IV ×4 (01:22→19:53)
[2020-05-07] MEDS: OXYCODONE/ACETAMINOPHEN 5/325 TABLET 2 TAB PO ×5 (04:33→21:58)
[2020-05-07 05:54] LABS: Hematocrit 41.3 % (41-53); Hemoglobin 14.2 g/dL (13.5-17.5)
[2020-05-07] MEDS: GABAPENTIN 600 MG TABLET PO ×3 (08:11→19:53)
[2020-05-07] MEDS: DOCUSATE 100 MG CAPSULE PO ×2 (08:11→19:53)
[2020-05-07] MEDS: CELECOXIB 200 MG CAPSULE PO ×2 (08:11→19:53)
[2020-05-07] MEDS: ASPIRIN EC 81 MG TABLET PO (08:11)
[2020-05-07] MEDS: lisinopriL 20 MG TABLET 40 MG PO (08:12)
[2020-05-07] MEDS: AMLODIPINE 5 MG TABLET 10 MG PO (08:12)
[2020-05-07] MEDS: SODIUM CHLORIDE 0.9% FLUSH 10 ML IV ×3 (08:12→20:44)
--- NOTE | 2020-05-07 08:53 | PM.PNPO.1 ---
Subjective Subjective Date Patient Seen: 05/07/20 Time Patient Seen: 08:53 Interval history: He is doing well. Pain in the back is about 5/10. No leg pain since surgery. He did get up and walk around the bed yesterday but that was it. Exam Vital Signs (past 8 hours): - 05/07/20 01:00 05/07/20 04:36 05/07/20 08:00 Temperature 98.4 F 98.2 F 98.2 F Pulse Rate 82 79 62 Respiratory Rate 18 18 15 Blood Pressure 126/64 145/89 H 139/81 Pulse Oximetry 97 98 97 05/07/20 08:12 Temperature Pulse Rate 62 Respiratory Rate Blood Pressure 139/81 Pulse Oximetry Oxygen Delivery Method Room Air Oxygen Flow Rate 0 Const Orientation: alert and oriented x3 Back/Spine/Pelvis Other: CDI. 5/5 motor both lower extremities. Objective Labs Result Diagrams: 05/07/20 05:40 Labs: Laboratory Results - last 24 hr 05/07/20 05:40 Hgb 14.2 Hct 41.3 Assessment & Plan Post-op Postoperative Procedures: Procedures Operation Date: 05/06/20 07:45 Actual Procedures Side Surgeon p L45 laminectomy & instrumented fusion w/ bone graft Laci Shearer MD he is doing well. Continue to mobilize today with PT. Anticipate discharge home tomorrow.
[2020-05-07] MEDS: METOCLOPRAMIDE 10 MG/2 ML INJ IV (09:26)
--- NOTE | 2020-05-07 09:32 | PT.IPTN ---
Current Diagnoses Spinal stenosis, lumbar region with neurogenic claudication (05/06/20) Strain of muscle, fascia and tendon of lower back, subsequent encounter (05/06/20) Surgery Performed Operation Date: 05/06/20 07:45 Actual Procedures p L45 laminectomy & instrumented fusion w/ bone graft - Laci Shearer MD Physical Therapy Treatment Note M2 PT-IP Current Condition Start: 05/06/20 13:11 Freq: NEEDED Status: Active Protocol: Document 05/06/20 14:22 AW (Rec: 05/06/20 15:29 AW [email or web address]) Physical Therapy Current Condition Current Condition Evaluation Date 05/06/20 Treatment Diagnosis L4-5 TLIF; difficulty in walking Onset Date 05/06/20 Precautions Lumbar Precautions Log Roll,No Twisting,Limit Bending,Lifting Restriction of 10 lbs,Gait Belt above Incisional Area M3 PT-IP Subjective Start: 05/06/20 13:11 Freq: NEEDED Status: Active Protocol: Document 05/07/20 09:10 SP (Rec: 05/07/20 14:11 SP [id number]) Subjective Physical Therapy Visit Type Type Treatment Note Visit Start Time 09:09 Visit Stop Time 09:32 Total Visit Minutes 23 Notes completed caregiver training including don gait belt, provide all physical assist as needed throughout tx including w/bed mobility, transfer, gait using FWW. Number of RENTAL SALES AGENT Visits 1 Physical Therapy Visit Comments Patient Comments Pt agreeable to working with PT. Patient Goals Pt plans to return home at discharge. Therapy Pain Assessment Pain When Pain Assessed 6 Pain Present Pain Present Pain Reported Location back Intensity 6 Scale Used 2/10 at rest, 6/10 during mobility Description Aching,Pressure,Tightness,With Movement Pain Behaviors Facial Grimacing,Wincing Pain Management Techniques Apply Cold,Re-positioning, Timing of Activity with Medications M4 PT-IP Mobility and Gait Start: 05/06/20 13:11 Freq: NEEDED Status: Active Protocol: Document 05/07/20 09:10 SP (Rec: 05/07/20 14:11 SP [id number]) PT-Bed Mobility Assessment Rolling Type of Rolling Roll to Left Level of Assist Contact Guard Assistance,1 Person Assistance Supine to Sit Supine to Sit Minimal Assistance,1 Person Assistance Scooting Scooting to Edge of Bed Standby Assistance PT-Transfer Assessment Sit to and From Stand Sit to and from Stand Contact Guard Assistance, Minimal Assistance,1 Person Assistance,Use of Upper Extremities Equipment Transfer Assistive Device Gait Belt,Front Wheeled Walker Orthotic/Prosthetic Devices or Brace: No Transfers Transfer Destination Bed,Chair Transfer Technique pt ambulated using FWW Transfer Ability Level of Assist Contact Guard Assistance, Minimal Assistance,1 Person Assistance,Use of Upper Extremities Comments Mobility Comments Pt slight incline in bed when arrived. Pt reported premedicated when arrived and had chance to rest. Pt recalled 3/3 precautions. Log roll to L with cuing for proper form no twisting CGA, supine> sitting Min A for trunk righting provided by while using BUE, scoot to EOB SBA. Sit <> stand CGA with proper hand placement 1 UE on FWW other off bed. Pt ambulated around room approx 20ft L side of bed to TV and back with noted retro lean during pivot turn to L privided CGA and self recovery , pt required seated rest at EOB before walking further to chair on other side of room approx 15 ft, CG-10 % A for slow descent into chair 1 UE on chair arm. Recommended using BUE next time for increased self support. Instructed ther ex: quad sets, glut sets, LAQ, and TA facilitation approx 30% to provide spinal stabilization, ROM pre gait/ mobility awareness, circulation to decrease risk for DVT with good demonstration, no adverse affects. Pt had call light and all needs in reach before left. in room. Discussed with patient progressing in mobility, recommending further acute PT this afternoon to improve strength, assess stair mgt if able for awareness of getting into mobile home while continuing caregiver training . Pt plans to return home with family to assist him when able and unsure if will need outpt PT yet. Gait Assessment Gait Gait Assistance Required: Contact Guard Assist,Minimum Assistance,1 Person Assist Distance (Feet) 15 Able to Maintain Weight Bearing Status Yes During Gait Assistive Devices Assistive Device Gait Belt,Front Wheeled Walker Orthotic/Prosthetic Devices or Brace: No Gait Deviations General Gait Pattern Antalgic,Decreased Stride Length,Decreased Feet Clearance,Step-to Gait Factors Limiting Gait Function Factors Limiting Gait Function Decreased Activity Tolerance, Decreased Strength,Limited Range of Motion,Pain,Poor Balance,Poor Safety Awareness Comments Gait Comments See mobility comments for details. Stair Climbing Assessment Comments Stair Climbing Comments Not assess, will need to complete 5 stairs with R HR for safe DC home. PT-Balance Assessment Sitting Balance and Reactions Static Sitting Balance Ability Good Dynamic Sitting Balance Ability Fair Standing Balance and Reactions Static Standing Balance Ability Fair Dynamic Standing Balance Ability Poor Device Used FWW Comments Other Balance Tests/Deviations/Treatment See mobility comments for : details. M5 PT-IP Objective Assessments Start: 05/06/20 13:11 Freq: NEEDED Status: Active Protocol: Document 05/06/20 14:22 DE (Rec: 05/06/20 15:50 DE [id number]) Orientation Orientation/Cognition Level of Alertness Alert Orientation Name,Age,Birthday,Month,Date, Year,Day of Week,Place, Situation Language Function Ability No Deficits Noted Safety Awareness Understands Safety Issues Memory Description No Deficits Noted Comments WNL. No deficits noted. Gross Range of Motion Upper Extremity ROM Assessment Within Functional Limits Lower Extremity ROM Assessment Within Functional Limits Strength Upper Extremity Strength Assessment Within Functional Limits Lower Extremity Strength Assessment Bilaterally Impaired Comments Strength Comments Pt's hip strength was limited by back pain. Pt had difficulty with lifting legs off the bed. Sensation Assessment Sensation Gross Sensation Left LE Impaired Light Touch Impaired Comments Sensation Comments Pt has impaired sensation around the L knee d/t hx of multiple knee surgeries. M6 PT-IP Treatment Start: 05/06/20 13:11 Freq: NEEDED Status: Active Protocol: Document 05/07/20 09:10 SP (Rec: 05/07/20 14:11 SP [id number]) Physical Therapy Treatment Exercises Exercises Ankle Pumps,Gluteal Sets,Quad Sets,Heel Slides,Seated Knee Flexion/Extension Education Education Provided Precautions,Weight Bearing Status,Post-Op Packet,Safety Other Treatments Other Treatment Performed Discussed in sitting LE exercises for ROM pre mobility and assist with circulation to decrease risk for DVT. M7 PT-IP Assessment and Plan Start: 05/06/20 13:11 Freq: NEEDED Status: Active Protocol: Document 05/07/20 09:10 SP (Rec: 05/07/20 14:11 SP [id number]) PT Summary Assessment and Plan Potential Rehabilitation Potential Good Status of Condition at Evaluation Evolving Summary Impairments Pain,ROM,Strength,Balance,Bed Mobility,Transfers,Gait, Activity Tolerance Assessment Summary Pt required Min A during supine>sitting for trunk righting, CGA with safety hand placement cuing sit<>stand, gait CGA- 5 % A all assist proviced by . Pt has decreased activity tolerance requiring seated rest during gait room distance but reports that his LLE leg pain had been having is gone. PT anticipates he will be safe to discharge home with spouse assist once medically cleared. He will need to clear stair training before discharge, hope to assess pm tx while completing further caregiver training with to support. Goals Bed Mobility Goal Standby Assistance Transfer Goal Standby Assistance,Front Wheeled Walker Gait Goal Standby Assistance,Front Wheel Walker Gait Distance - 200 feet Other Goals - up/down 5 steps with right rail ascending SBA gait and transfer goals with LRAD Days to Meet Goals 3 Frequency of Treatment Frequency Of Treatment Twice a Day Treatment Plan Physical Therapy Treatment Plan Bed Mobility Training,Transfer Training,Gait Training, Therapeutic Exercise,Balance Retraining,Post Op Education, Discharge Planning,Hot or Cold Pack,Neuromuscular Re-ed Recommendations To Nursing Amount of Assist Needed 1 Person Assist Discharge Recommendations PT Discharge Recommendations Home with Assistance, Outpatient PT Equipment Needed for Home Before is looking if can acquire Discharge FWW recommending prior to DC for support needed, may need dispense FWW pre DC. Transportation Needs at Discharge Private Vehicle
--- NOTE | 2020-05-07 10:04 | OT.IP.EVAL ---
Current Diagnoses Spinal stenosis, lumbar region with neurogenic claudication (05/06/20) Strain of muscle, fascia and tendon of lower back, subsequent encounter (05/06/20) Surgery Performed Operation Date: 05/06/20 07:45 Actual Procedures p L45 laminectomy & instrumented fusion w/ bone graft - Laci Shearer MD Past Medical History (Last Updated 04/29/20 @ 09:16 by Brigette Washington RN) Asthma (Acute) Diverticulitis (Acute) HLD (hyperlipidemia) (Acute) HTN (hypertension) (Acute) Low back pain (Acute) Pancreatitis (Acute) Sciatica (Acute) Surgical History (Last Updated 04/29/20 @ 09:16 by Brigette Washington RN) History of esophagogastroduodenoscopy (EGD) (Acute) Hx of appendectomy (Acute) Hx of left knee surgery (Acute) Occupational Therapy Inpatient Evaluation/Re-Eval M1 PT/OT-IP Prior Functional Status Start: 05/07/20 10:20 Freq: NEEDED Status: Active Protocol: Document 05/07/20 09:22 [facility] (Rec: 05/07/20 13:18 [facility] [id number]) Medical Review Prior Functional Status Medical History Reviewed Yes Communication WNL. Pt is an effective verbal communicator. Mobility and Gait Pt is independent with all mobility though admits some difficulty with uneven terrain and inclines. Pt states he can walk about 1 mile. Activities of Daily Living and IADL's Pt sometimes needs assist with lower body dressing. He is otherwise independent with all I/ADL's. Social History Household Members spouse,children Living Arrangements Mobile home Number of Floors (Floors) One Floor Number of Stairs To Enter/Railing? 5 ADONIS with right rail ascending at front door. 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 He lives in [place] with his , Lina, and his 9 yo daughter. His is currently working from home and plans to take time off to assist the pt at discharge. M2 OT-IP Current Condition Start: 05/07/20 10:20 Freq: Status: Active Protocol: Document 05/07/20 09:22 [facility] (Rec: 05/07/20 13:18 [facility] [email or web address]) Occupational Therapy Current Condition Current Condition Evaluation Date 05/07/20 Treatment Diagnosis Lumbar stenosis, s/p L-5 TLIF Diagnosis Onset Date 05/06/20 Post Operative Precautions Lumbar Precautions Log Roll,No Twisting,Limit Bending,Lifting Restriction of 10 lbs,Gait Belt above Incisional Area M3 OT- IP Subjective and Pain Start: 05/07/20 10:20 Freq: Status: Active Protocol: Document 05/07/20 09:22 [facility] (Rec: 05/07/20 13:18 [facility] [email or web address]) OT- Subjective Occupational Therapy Visit Type Type Initial Evaluation Visit Start Time 09:22 Visit Stop Time 10:04 Total Visit Minutes 42 Occupational Therapy Visit Comments Patient Comments Pt is bed and feeling nauseous , and nursing came in to give pt medication. Patient/Caregiver Goals TO go home. OT Pain Assessment Pain When Pain Assessed At Rest Pain Present Pain Present Denied Pain M4 OT- IP ADL's Start: 05/07/20 10:20 Freq: Status: Active Protocol: Document 05/07/20 09:22 [facility] (Rec: 05/07/20 13:18 [facility] [id number]) OT BXL-Xgbp-Aobdcxw Comments OT Self-Feeding Comments Pt did not eat as too nauseous . OT ADL-Grooming General Evaluation Grooming Ability Standby Assistance Areas Needing Assistance Retrieving/Set-up of Grooming Items Comments OT Grooming Comments Able to stand from grooming needs. OT ADL-Oral Care General Eval Oral Care Ability Standby Assistance Comments Oral Care Comments Educated to spit into a cup or bend at his hips to lean over the sink to spit to best follow his back precautions. OT ADL-Dressing General Eval Lower Body Dressing Ability Maximum Assistance Comments OT Dressing Comments Began to show pt LB dressing equipment to best follow his back precautions. OT ADL-Toileting Comments OT Toileting Comments Pt having waite in place. Educated may be best to stand to wipe after bowel movement- to try/practice tomorrow. The catheter causing pain and therefore nursing came to speak to pt about getting the catheter out and use of urinal or bathroom. OT ADL-Bathing Comments OT Bathing Comments Pt wanting to try to shower tomorrow. M5 OT- IP IADL's Start: 05/07/20 10:20 Freq: Status: Active Protocol: Document 05/07/20 09:22 [facility] (Rec: 05/07/20 13:18 [facility] [email or web address]) OT-Instrumental Activities of Daily Living Home Safety Awareness Awareness of Need for Assistance at Home Good Awareness Medication Management Medication Management Comments Pt's to assist for needs at needed. Pt needing simple cues to follow at this time. Money Management Money Management Comments Pt's to assist for needs at needed. Pt needing simple cues to follow at this time. Meal Preparation Meal Preparation Comments Pt's to assist for needs at needed. Pt needing simple cues to follow at this time. Prawn Trawler Hand Prawn Trawler Hand Comments Pt's to assist for needs at needed. Pt needing simple cues to follow at this time. M6 OT- IP Functional Cognition Start: 05/07/20 10:20 Freq: Status: Active Protocol: Document 05/07/20 09:22 [facility] (Rec: 05/07/20 13:18 [facility] [email or web address]) Cognitive Factors Limiting Selfcare Function Cognitive Ability Level of Alertness Alert Patient Orientation Name,Place,Situation Attention Span Ability Capable of Focused Attention, Capable of Sustained Attention Ability to Follow Commands Able to Follow One Step Commands Safety Awareness Decreased Recall of Precautions,Decreased Ability to Apply Precautions Cognitive Comments Cognitive Assessment Comments Pt not able to recall all back precautions and needing constant reminders to incorporate during mobility needs at this time. OT- Vision and Hearing OT- Hearing Assessment OT- Hearing Assessment WFL M7 OT- IP Mobility and Balance Start: 05/07/20 10:20 Freq: Status: Active Protocol: Document 05/07/20 09:22 [facility] (Rec: 05/07/20 13:18 [facility] [email or web address]) OT- Bed Mobility Assessment Rolling Type of Rolling Roll to Left Supine to Sit Supine to Sit Assist Minimal Assistance Sit to Supine Sit to Supine Assist Minimal Assistance Scooting Scooting to Edge of Bed Contact Guard Assistance OT-Transfer Assessment Sit to and From Stand Sit to and from Stand Contact Guard Assistance Transfers Transfer Ability Contact Guard Assistance Technique Transfer Destination Bed Transfer Technique Stand Step Pivot Devices Transfer Assistive Devices Gait Belt,Front Wheeled Walker Comments Mobility Comments VC to bend his knees and roll to the edge of the bed. [place] to assist to get upright. Pt needing cues to push up with his hands on the surface sitting on. CGA with FWW. OT- Balance Assessment Sitting Balance and Reactions Static Sitting Balance Ability Normal Dynamic Sitting Balance Ability Good Standing Balance and Reactions Static Standing Balance Ability Fair M8 OT- IP Objective Assessments Start: 05/07/20 10:20 Freq: Status: Active Protocol: Document 05/07/20 09:22 [facility] (Rec: 05/07/20 13:18 [facility] [email or web address]) OT Strength Upper Extremity Strength Assessment Within Functional Limits OT-Muscle Tone Assessment Muscle Tone WNL Yes M9 OT- IP Assessment and Plan Start: 05/07/20 10:20 Freq: Status: Active Protocol: Document 05/07/20 09:22 [facility] (Rec: 05/07/20 13:18 [facility] [email or web address]) OT Summary Assessment and Plan Potential Rehabilitation Potential Good Analytic Complexity at Evaluation Low Summary OT Impairments Pain,Balance,Functional Cognition,Functional Mobility, Grooming,Dressing,Toileting, Bathing,Toilet Transfers, Shower Transfers,Activity Tolerance Progress Towards Goals Progressing Toward Goals Assessment Summary Pt low complexity and main barriers are steps, pain , and now needing one person assist for mobility and ADl needs. Pt has a supportive to be able to assist pt at home as needed. Pt looking to go home when medically stable. Pt's looking to supervisor opening and picking a FWW, shower chair, LB dressing equipment, and cane for pt. Goals Grooming Goal Independent Dressing Goal Independent Toileting Goal Independent Bathing Goal Independent Toilet Transfer Goal Independent Shower Transfer Goal Independent Patient/Caregiver Education Goal Demonstrate Post-Op Precautions,Caregiver Independent Assisting Patient Days to Meet Goals 2 Frequency of Treatment Frequency Of Treatment Once a Day Treatment Plan OT Treatment Plan ADL Training,Functional Cognition Training,Functional Mobility,Patient/Family Education,Discharge Planning Other Treatment Recommendations and Next Caregiver training and shower Treatment Focus Discharge Recommendations OT Discharge Recommendations Home with Assistance Home Equipment Needs shower chair, FWW, cane? Transportation Needs at Discharge Private Vehicle
--- NOTE | 2020-05-07 11:05 | CM.DANOTE ---
DCP: Case received, EMR reviewed and met with patient. , Lina, was also present at bedside. Introduced self and role. Was able to obtain information regarding patient's baseline activity status prior to surgery. DCP assessment completed with information currently available. Patient is a 44 year old male who admitted yesterday morning to the care of the orthopedic team. PCP: Dr. Soto. Payer: confirmed: Diana. Patient came to the hospital via private vehicle for a surgical procedure. He had L4-5 Laminectomy. Patient has history of spinal stenosis, and has had chronic pain radiating to his hip and leg. According to therapy's notes, patient had been walking a mile at baseline. Met with patient in his room. He was laying in bed, alert and oriented. He resides in [place] with his spouse, Lina, who was present in room. 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 He is independent at baseline, and uses no DME supplies. Patient stated, he may need cane ordered, for he does not have one. P.T. is aware. P: DCP to continue to follow. According to Dr. Shearer's note, patient should be discharging home tomorrow, he needs to work more with P.T. Ijeoma Lance RN/Thoracic Medicine Physician
[2020-05-07] MEDS: hydrOXYzine pamoate 25 MG CAPSULE PO ×2 (13:33→21:58)
--- NOTE | 2020-05-07 14:30 | PT.IPTN ---
Current Diagnoses Spinal stenosis, lumbar region with neurogenic claudication (05/07/20) Strain of muscle, fascia and tendon of lower back, subsequent encounter (05/07/20) Surgery Performed Operation Date: 05/06/20 07:45 Actual Procedures p L45 laminectomy & instrumented fusion w/ bone graft - Laci Shearer MD Physical Therapy Treatment Note M2 PT-IP Current Condition Start: 05/06/20 13:11 Freq: NEEDED Status: Active Protocol: Document 05/06/20 14:22 [facility] (Rec: 05/06/20 15:29 [facility] [email or web address]) Physical Therapy Current Condition Current Condition Evaluation Date 05/06/20 Treatment Diagnosis L4-5 TLIF; difficulty in walking Onset Date 05/06/20 Precautions Lumbar Precautions Log Roll,No Twisting,Limit Bending,Lifting Restriction of 10 lbs,Gait Belt above Incisional Area M3 PT-IP Subjective Start: 05/06/20 13:11 Freq: NEEDED Status: Active Protocol: Document 05/07/20 14:30 AB (Rec: 05/07/20 15:18 AB [id number]) Subjective Physical Therapy Visit Type Type Treatment Note Visit Start Time 14:30 Visit Stop Time 14:59 Total Visit Minutes 29 Number of BUSINESS OPERATIONS SPECIALIST Visits 0 Physical Therapy Visit Comments Patient Comments pt is agreeable to do PT Therapy Pain Assessment Pain When Pain Assessed At Rest Pain Present Pain Present Pain Reported Location back Intensity 5 Scale Used increases to 8/10 with mobility Pain Management Techniques Modification of Treatment,Re- positioning,Timing of Activity with Medications M4 PT-IP Mobility and Gait Start: 05/06/20 13:11 Freq: NEEDED Status: Active Protocol: Document 05/07/20 14:30 AB (Rec: 05/07/20 15:18 AB [id number]) PT-Bed Mobility Assessment Rolling Type of Rolling Log Rolling Level of Assist Standby Assistance Supine to Sit Supine to Sit Minimal Assistance,1 Person Assistance Sit to Supine Sit to Supine Minimal Assistance,1 Person Assistance Scooting Scooting to Edge of Bed Standby Assistance PT-Transfer Assessment Sit to and From Stand Sit to and from Stand Contact Guard Assistance Equipment Transfer Assistive Device Gait Belt,Front Wheeled Walker Orthotic/Prosthetic Devices or Brace: No Transfers Transfer Destination Toilet Transfer Technique ambulated using FWW Transfer Ability Level of Assist Contact Guard Assistance, Minimal Assistance,1 Person Assistance,Use of Upper Extremities Comments Mobility Comments spouse in room with pt. conducted caregiver training. pt was able to recall back precautions. spouse assisted pt with supine to sit, sit to stand and ambulated with pt using FWW to the toilet. pt with increase L knee bending during initial standing and cued pt for activating quads. pt stated that he had 5 knee surgeries on the side before. pt and spouse demonstrated safety with mobility. pt ambulated towards the sink using FWW with spouse assisting and completed handwashing CGA for standing balance. pt ambulated towards the stairs ~ 40 ft using FWW. educated on how to do stair climbing and how spouse is going to assist pt with stairs . pt completed up/down steps with spouse assisting CGA to min A. pt ambulated back to his room and requested to go back to bed. completed sit to supine with spouse assisting. positioned in bed. call light and table placed within reach. educated pt and spouse regarding safety and pt's decrease activity tolerance. recommended having seating rest stations at home so pt can sit and rest when needed. pt and spouse understood and agreed. Gait Assessment Gait Gait Assistance Required: Contact Guard Assist,Minimum Assistance,1 Person Assist Distance (Feet) 40 Able to Maintain Weight Bearing Status No During Gait Assistive Devices Assistive Device Gait Belt,Front Wheeled Walker Orthotic/Prosthetic Devices or Brace: No Gait Deviations General Gait Pattern Within Normal Limits Factors Limiting Gait Function Factors Limiting Gait Function Decreased Activity Tolerance, Decreased Strength,Limited Range of Motion,Pain,Poor Balance,Poor Safety Awareness Comments Gait Comments pls refer to mobility section for details Stair Climbing Assessment Evaluation Level of Assist On Stairs Contact Guard Assistance, Minimal Assistance,1 Person Assistance Devices Stair Climbing Assistive Devices Right Railing Technique/Endurance Stair Climbing Direction Ascend and Descend Stair Climbing Technique Step to Step Number of Steps Climbed 3 Stair Climbing Set # Repetitions (reps) 2 M5 PT-IP Objective Assessments Start: 05/06/20 13:11 Freq: NEEDED Status: Active Protocol: Document 05/06/20 14:22 DE (Rec: 05/06/20 15:50 DE [id number]) Orientation Orientation/Cognition Level of Alertness Alert Orientation Name,Age,Birthday,Month,Date, Year,Day of Week,Place, Situation Language Function Ability No Deficits Noted Safety Awareness Understands Safety Issues Memory Description No Deficits Noted Comments WNL. No deficits noted. Gross Range of Motion Upper Extremity ROM Assessment Within Functional Limits Lower Extremity ROM Assessment Within Functional Limits Strength Upper Extremity Strength Assessment Within Functional Limits Lower Extremity Strength Assessment Bilaterally Impaired Comments Strength Comments Pt's hip strength was limited by back pain. Pt had difficulty with lifting legs off the bed. Sensation Assessment Sensation Gross Sensation Left LE Impaired Light Touch Impaired Comments Sensation Comments Pt has impaired sensation around the L knee d/t hx of multiple knee surgeries. M6 PT-IP Treatment Start: 05/06/20 13:11 Freq: NEEDED Status: Active Protocol: Document 05/07/20 14:30 AB (Rec: 05/07/20 15:18 AB [id number]) Physical Therapy Treatment Education Education Provided Precautions,Safety M7 PT-IP Assessment and Plan Start: 05/06/20 13:11 Freq: NEEDED Status: Active Protocol: Document 05/07/20 14:30 AB (Rec: 05/07/20 15:18 AB [id number]) PT Summary Assessment and Plan Potential Rehabilitation Potential Good Summary Impairments Pain,ROM,Strength,Balance, Coordination,Sensation,Tone, Cognition,Bed Mobility, Transfers,Gait,Activity Tolerance Progress Towards Goals Slow Progress due to Pain Assessment Summary caregiver training conducted. pt and spouse demonstrated safety with mobility. spouse is able to assist and cue pt safely. pt plans to go home and spouse will assist. spouse also stated that she was able to get a FWW for pt. Goals Bed Mobility Goal Standby Assistance Transfer Goal Standby Assistance,Front Wheeled Walker Gait Goal Standby Assistance,Front Wheel Walker Gait Distance - 200 feet Other Goals - up/down 5 steps with right rail ascending SBA gait and transfer goals with LRAD Days to Meet Goals 3 Frequency of Treatment Frequency Of Treatment Twice a Day Treatment Plan Physical Therapy Treatment Plan Bed Mobility Training,Transfer Training,Gait Training, Therapeutic Exercise,Balance Retraining,Post Op Education, Discharge Planning,Hot or Cold Pack,Neuromuscular Re-ed Recommendations To Nursing Amount of Assist Needed 1 Person Assist Discharge Recommendations PT Discharge Recommendations Home with Assistance Transportation Needs at Discharge Private Vehicle
[2020-05-07] MEDS: SENNOSIDES 8.6 MG TABLET 17.2 MG PO (19:53)
[2020-05-08] VITALS: BP 144/78; PULSE 85; RESP 18; TEMP 36.7; O2SAT 97
--- NOTE | 2020-05-08 01:28 | PC.NURSE ---
Addendum entered by Merlyn Luo R.N. 05/08/20 05:20: Patient states he slept well. Reports pain is 7/10 this morning and sharp; medicated with Percocet + Vistaril. Original Note: 2326 Patient is alert and oriented. Breath sounds CTA with RA sat of 97%. HRR. BP trends high and is 144/78. Denies nausea. BT present and is passing flatus. Denies dysuria, frequency or urgency with urination. Able to turn himself in bed. Dressing to back is CDI. States pain is 6/10 but improved since receiving Percocet/Vistaril at 2158; ice applied for comfort. States he has been getting out of bed with walker and 1 assist due to weakness in left knee. CMS intact bilaterally. Refusing to wear SCD's as can't sleep with them on; reminded to ankle wave. Fall risk score is moderate and bed alarm is activated. rooming in.
[2020-05-08] MEDS: OXYCODONE/ACETAMINOPHEN 5/325 TABLET 2 TAB PO ×2 (05:14→08:59)
[2020-05-08] MEDS: hydrOXYzine pamoate 25 MG CAPSULE PO (05:14)
[2020-05-08 05:29] VITALS: BP 143/88; PULSE 70; RESP 18; TEMP 36.9; O2SAT 98
--- NOTE | 2020-05-08 07:22 | PM.PNPO.1 ---
Subjective Subjective Date Patient Seen: 05/08/20 Time Patient Seen: 07:22 Interval history: He's doing much better. Up yesterday with PT and minimal assist. Good pain control Exam Vital Signs (past 8 hours): - 05/08/20 00:00 05/08/20 05:29 Temperature 98.0 F 98.4 F Pulse Rate 85 70 Respiratory Rate 18 18 Blood Pressure 144/78 H 143/88 H Pulse Oximetry 97 98 Oxygen Delivery Method Room Air Oxygen Flow Rate 0 Const Orientation: alert and oriented x3 Back/Spine/Pelvis Other: CDI. 5/5 motor both lower extremities. Objective Labs Result Diagrams: 05/07/20 05:40 Assessment & Plan Post-op Postoperative Procedures: Procedures Operation Date: 05/06/20 07:45 Actual Procedures Side Surgeon p L45 laminectomy & instrumented fusion w/ bone graft Laci Shearer MD he is doing great. Will discharge him home after physical therapy this morning.
--- NOTE | 2020-05-08 07:24 | P.DS_ITS ---
History of Present Illness History of Present Illness Date Patient Seen: 05/08/20 Time Patient Seen: 07:24 Chief complaint: OPB Narrative: 44-year-old male with back and left leg pain. He has been through conservative management with physical therapy and medication. Pain is stabbing and burning across the back and running down the posterolateral aspect of the le ft leg. Discharge Providers Provider Date of admission: 05/07/20 14:47 Discharge Date: 05/08/20 Primary care physician: Rick Soto MD Consults: 05/06/20 11:37 Consult to Occupational Therapy Evaluate & Treat Comment: Physician Instructions: Evaluate and treat Consult to Physical Therapy Evaluate & Treat Comment: Physician Instructions: Evaluate and Treat Discharge provider: Laci Shearer MD Summary Hospital Course Discharge Diagnosis: Lumbar stenosis with radiculopathy Lumbar spondylolisthesis Hospital Course: He is brought to the operating room on 05/06/2015 were underwent an L4-5 laminectomy and fusion TLIF. Postoperatively he did well. His pain was under decent control and switched over to just orals. He was moving well with physical therapy and was independent by date of discharge. Status at Discharge Cognitive/behavioral status at discharge: oriented Functional status at discharge: uses cane/walker Overall status at discharge: patient is progressing back to baseline Exam Vital Signs (past 8 hours): - 05/08/20 00:00 05/08/20 05:29 Temperature 98.0 F 98.4 F Pulse Rate 85 70 Respiratory Rate 18 18 Blood Pressure 144/78 H 143/88 H Pulse Oximetry 97 98 Oxygen Delivery Method Room Air Oxygen Flow Rate 0 Const Orientation: alert and oriented x3 Back/Spine/Pelvis Other: CDI. 5/5 motor both lower extremities. Objective Labs Result Diagrams: 05/07/20 05:40 Discharge Assessment & Plan Assessment and Plan Assessment: Lumbar stenosis with radiculopathy now status post laminectomy and fusion at L4- 5 Plan of Treatment: Discharge home Discharge Plan Discharge Plan Patient Disposition: Home Provider Discharge Comment: Follow-up 1.5 weeks Discharge orders & Medications Prescriptions: New celecoxib [Celebrex] 200 mg Capsule 200 mg PO BID PRN (Reason: pain) Qty: 60 RF: 0 hydroxyzine pamoate 25 mg Capsule 25 mg PO Q4HR PRN (Reason: spasms) Qty: 20 RF: 0 oxycodone-acetaminophen 5-325 mg Tablet See Rx Instructions .ROUTE .COMPLEX PRN (Reason: Pain, Moderate (4-6)) Qty: 35 RF: 0 docusate sodium [DOK] 100 mg Capsule 100 mg PO BID PRN (Reason: constipation) Qty: 30 RF: 0 Continued gabapentin 600 mg Tablet 600 mg PO TID RF: 0 aspirin 81 mg Tablet,Delayed Release (Dr/Ec) 81 mg PO DAILY RF: 0 amlodipine [Norvasc] 10 mg Tablet 10 mg PO DAILY RF: 0 lisinopril 40 mg Tablet 40 mg PO DAILY RF: 0 Discontinued ibuprofen 200 mg Tablet 200 mg PO PRN PRN (Reason: pain) RF: 0 Follow up/Referrals: Rick Soto MD [Primary Care Provider] - Discharge Health Status Multidrug resistant organism: No MDRO Diet/Activity/Treatments Diet: Diet as Tolerated Activity: Limited bending, twisting, 10 lb maximum lifting Skin/Wound/Dressing Care Report to your healthcare provider any signs of infection, such as:: chills, fever, night sweats, increased pain, unusual drainage and unusual redness Dressing: May shower with dressing. Five days after surgery, Tuesday, you may remove the dressing and shower over the incision site. Please replace with a clean dressing when done Visit Report/Discharge Packet Instructions: DI for Transforaminal Lumbar Interbody Fusion Stand Alone Forms: Surgery Discharge Discharge Data Primary Care Provider: Rick Soto Attending Provider: Laci Shearer Admit Date/Time: 05/07/20 14:47
[2020-05-08] MEDS: AMLODIPINE 5 MG TABLET 10 MG PO (08:59)
[2020-05-08 09:00] VITALS: BP 135/97; PULSE 67
[2020-05-08] MEDS: ASPIRIN EC 81 MG TABLET PO (09:00)
[2020-05-08] MEDS: lisinopriL 20 MG TABLET 40 MG PO (09:00)
[2020-05-08] MEDS: CELECOXIB 200 MG CAPSULE PO (09:00)
[2020-05-08] MEDS: GABAPENTIN 600 MG TABLET PO (09:00)
[2020-05-08] MEDS: DOCUSATE 100 MG CAPSULE PO (09:00)
[2020-05-08] MEDS: SODIUM CHLORIDE 0.9% FLUSH 10 ML IV (09:01)
[2020-05-08 09:27] VITALS: BP 135/97; PULSE 88; RESP 15; TEMP 36.8; O2SAT 96
--- NOTE | 2020-05-08 10:00 | OT.IP.TRT ---
Current Diagnoses Spinal stenosis, lumbar region with neurogenic claudication (05/07/20) Strain of muscle, fascia and tendon of lower back, subsequent encounter (05/07/20) Surgery Performed Operation Date: 05/06/20 07:45 Actual Procedures p L45 laminectomy & instrumented fusion w/ bone graft - Laci Shearer MD Occupational Therapy Treatment Note M2 OT-IP Current Condition Start: 05/07/20 10:20 Freq: Status: Active Protocol: Document 05/07/20 09:22 [facility] (Rec: 05/07/20 13:18 [facility] [id number]) Occupational Therapy Current Condition Current Condition Evaluation Date 05/07/20 Treatment Diagnosis Lumbar stenosis, s/p L-5 TLIF Diagnosis Onset Date 05/06/20 Post Operative Precautions Lumbar Precautions Log Roll,No Twisting,Limit Bending,Lifting Restriction of 10 lbs,Gait Belt above Incisional Area M3 OT- IP Subjective and Pain Start: 05/07/20 10:20 Freq: Status: Active Protocol: Document 05/08/20 10:00 [facility] (Rec: 05/08/20 11:18 [facility] [id number]) OT- Subjective Occupational Therapy Visit Type Type Treatment Note Visit Start Time 09:22 Visit Stop Time 10:06 Total Visit Minutes 44 Occupational Therapy Visit Comments Patient Comments Pt wanting to shower after getting his pain medications. Patient/Caregiver Goals TO go home. OT Pain Assessment Pain When Pain Assessed At Rest Pain Present Pain Present Denied Pain M4 OT- IP ADL's Start: 05/07/20 10:20 Freq: Status: Active Protocol: Document 05/08/20 10:00 [facility] (Rec: 05/08/20 11:18 [facility] [id number]) OT ADL-Dressing General Eval Upper Body Dressing Ability Minimal Assistance Lower Body Dressing Ability Moderate Assistance Comments OT Dressing Comments Pt's able to assist pt for LB dressing needs after his shower. Able to re-show pt LB dressing equipment to use. Pt's foot too large for the standard sock aid and pt states to have his daughter assist him. OT ADL-Toileting Comments OT Toileting Comments Pt able to stand over the toilet with FWW to urinate with distant SBA. OT ADL-Bathing General Evaluation Bathing Ability Moderate Assistance Areas Needing Assistance Wash/Dry Back,Wash/Dry Perineal Area,Wash/Dry Lower Extremities Comments OT Bathing Comments Pt's able to safely assist pt for all needs for showering and dressing . M6 OT- IP Functional Cognition Start: 05/07/20 10:20 Freq: Status: Active Protocol: Document 05/08/20 10:00 [facility] (Rec: 05/08/20 11:18 [facility] [id number]) Cognitive Factors Limiting Selfcare Function Cognitive Ability Safety Awareness Decreased Ability to Apply Precautions,Underestimates Need for Assistance Cognitive Comments Cognitive Assessment Comments Pt's able to instruct pt for safety during bed mobility needs and remind pt of back precautions. M7 OT- IP Mobility and Balance Start: 05/07/20 10:20 Freq: Status: Active Protocol: Document 05/08/20 10:00 [facility] (Rec: 05/08/20 11:18 [facility] [id number]) OT- Bed Mobility Assessment Supine to Sit Supine to Sit Assist Minimal Assistance OT-Transfer Assessment Sit to and From Stand Sit to and from Stand Contact Guard Assistance Transfers Transfer Ability Contact Guard Assistance Technique Transfer Destination Bed,Chair,Shower Stall Transfer Technique Stand Step Pivot Devices Transfer Assistive Devices Gait Belt,Front Wheeled Walker Comments Mobility Comments Pt 's able to safely doris gait belt and assist pt for bed mobility and transfer needs. OT- Gait Assessment Comments Gait Ability Comments CGA to SBA with FWW. OT- Balance Assessment Sitting Balance and Reactions Static Sitting Balance Ability Normal Dynamic Sitting Balance Ability Normal Standing Balance and Reactions Static Standing Balance Ability Good M8 OT- IP Objective Assessments Start: 05/07/20 10:20 Freq: Status: Active Protocol: Document 05/07/20 09:22 [facility] (Rec: 05/07/20 13:18 [facility] [id number]) OT Strength Upper Extremity Strength Assessment Within Functional Limits OT-Muscle Tone Assessment Muscle Tone WNL Yes M9 OT- IP Assessment and Plan Start: 05/07/20 10:20 Freq: Status: Active Protocol: Document 05/08/20 10:00 [facility] (Rec: 05/08/20 11:18 [facility] [id number]) OT Summary Assessment and Plan Potential Rehabilitation Potential Good Analytic Complexity at Evaluation Low Summary OT Impairments Pain,Functional Cognition, Functional Mobility,Dressing, Bathing Progress Towards Goals Progressing Toward Goals Assessment Summary Pt's has completed all caregiver training with pt for ADl and mobility needs and able to safely assist pt for all needs with good safety and demonstration. Pt was issued head filter press tender, long handled shoe horn and brush. Pt able to get a fww and do get a shower chair tomorrow, Pt to go home with his today. Discharge Recommendations OT Discharge Recommendations Home with Assistance Home Equipment Needs shower chair, FWW, cane? Transportation Needs at Discharge Private Vehicle
--- NOTE | 2020-05-08 10:35 | PC.NURSE ---
Patient educated about diet, activity, medications, ss of infection, falls, new medications. Patient and verbalized understanding of instructions. Dressing change to Coversite. Patient was educated about dressing and when he could shower and change dressing. Patient prescriptions sent to [facility] in [place] electronically. Patient left facility with all belongings, via wheelchair to private vehicle with .
== END 2020-05-08 10:39 | disposition home or self-care (01) ==
LOC: OR 15:01 → AC 15:01
PROVIDERS: Admitting Provider Orthopaedic Surgery; PCP Family Medicine; Referring Provider Family Medicine; Visit Provider Orthopaedic Surgery
PROC: (CPT 22633; principal; 2020-05-06 07:45)
DX: M48.062 Spinal stenosis, lumbar region with neurogenic claudication (principal); S39.012D Strain of muscle, fascia and tendon of lower back, subsequent encounter; M54.16 Radiculopathy, lumbar region; M43.16 Spondylolisthesis, lumbar region; J45.909 Unspecified asthma, uncomplicated; I10 Essential (primary) hypertension
CPT/HCPCS: 22633; 20939; 22840; 22853; 63047; 36415; 36592; 72100; 76000; 85014; 85018; 94760; 94762; 97116; 97161; 97165; 97530; 97535; C1776; G0378; J0330; J0595; J0690; J1170; J2060; J2250; J2274; J2405; J2704; J2765; J3010; J3410

== ENCOUNTER 2020-07-08 13:59 | Emergency (ER) | payer OTHER, SELFPAY ==
[2020-05-06 12:15] VITALS: BMI 33.0
[2020-07-08] VITALS (8 sets, daily range): BP systolic 137–167; BP diastolic 72–105; PULSE 77–106; RESP 16–18; TEMP 36.9; O2SAT 93–99; BMI 32.1
--- NOTE | 2020-07-08 14:05 | ED_ITS ---
HPI - General Adult General Chief complaint: Syncope Stated complaint: Loss of Appetite, Passed Out In Shower, Light Hea Time Seen by Provider: 07/08/20 14:05 History of Present Illness HPI narrative: 44-year-old gentleman presents with 3 weeks of loss of appetite, dramatic early satiety, nausea when he eats, 35 lb weight loss and today had a syncopal episode in the shower. He describes the world going black settling down and as he was going down he was able to see the floor coming up and protect himself with his hands in his knees. He did not hit his head. He does not report chest pain, dyspnea, palpitations. Notes that in mid April he had an L4-5 laminectomy done at [facility] has some postoperative pain but the neuropathic pain has resolved. Approximately 3 weeks ago, after being cleared for full range of movement, he was reaching down to the bottom his closet mushroom picker some clothes and felt a tearing pulling sensation in his low back. He describes most of his symptoms getting worse since that time frame. He was seen in walk-in clinic a week ago with similar complaints and instructed to go to the emergency department. He was seen at [facility] and reportedly had a head CT and blood work and no acute abnormalities were appreciated. He comes in [facility] for further evaluation after the syncopal episode and a sense that things are progressively worsening. Related Data Home Medications Medication Instructions Recorded Confirmed amlodipine [Norvasc] 10 mg PO DAILY 04/29/20 05/06/20 aspirin 81 mg PO DAILY 04/29/20 05/06/20 gabapentin 600 mg PO TID 04/29/20 05/06/20 lisinopril 40 mg PO DAILY 04/29/20 05/06/20 Previous Rx's Medication Instructions Recorded celecoxib [Celebrex] 200 mg PO BID PRN #60 cap 05/07/20 docusate sodium [DOK] 100 mg PO BID PRN #30 cap 05/07/20 hydroxyzine pamoate 25 mg PO Q4HR PRN #20 cap 05/07/20 oxycodone-acetaminophen See Rx Instructions .ROUTE 05/07/20 .COMPLEX PRN #35 tab Allergies Allergy/AdvReac Type Severity Reaction Status Date / Time codeine Allergy Mild ITCHING Verified 07/08/20 14:16 methylprednisolone AdvReac Severe Hypertension, Verified 07/08/20 14:16 chest pain prednisone AdvReac Severe Hypertension, Verified 07/08/20 14:16 chest pain Review of Systems Review of Systems Narrative: Remainder of review of systems including constitutional, ENT, cardiovascular, respiratory, GI, , musculoskeletal, skin, neurologic and psychiatric systems reviewed and are unremarkable except as noted in HPI. Patient History Medical History Asthma Diverticulitis HLD (hyperlipidemia) HTN (hypertension) Low back pain Pancreatitis Sciatica Surgical History History of esophagogastroduodenoscopy (EGD) Hx of appendectomy Hx of left knee surgery Social History household members: spouse and children Smoking Status: Former smoker alcohol intake: current Smoking Status: Former smoker alcohol intake frequency: holidays/special occasions only Substance Use Type: marijuana Exam Narrative Exam Narrative: General: Healthy appearing, in no acute distress. Able to give a complete and coherent history. Well-nourished well-developed HEENT: Moist mucous membranes, normal sclera with reactive pupils, Neck: No JVD, supple Respiratory: Lungs are clear to auscultation, no wheezing no rales no rhonchi. Full and symmetrical air movement Cardiac: Mild tachycardia with Regular rate and rhythm no murmurs no bruits Abdomen: Soft, epigastric and left upper quadrant tenderness. Tenderness to the right upper quadrant with a bit of guarding that seems to be more midline rather than McBurney's point. There is no specific liver tenderness or hepatosplenomegaly appreciated. good bowel tones, no flank pain Skin: Warm and dry, no rashes Neurologic: Grossly neurologically intact with no obvious asymmetries or abnormalities Extremities: No trauma, well perfused Psych: Cooperative, appropriate insight and affect Initial Vital Signs Initial Vital Signs: Vital Signs Pulse Oximetry 95 07/08/20 14:07 Course Orders Ordered: ED Orders 07/08/20 14:26 CT abdomen pelvis w con Stat 07/08/20 14:48 Complete Blood Count AUTO DIFF Stat Comprehensive Metabolic Panel Stat D Dimer Stat Lipase Stat Magnesium Stat Procalcitonin Stat 07/08/20 17:47 COVID19 Stat Discontinued Medications Sodium Chloride (Normal Saline 0.9%) 1,000 mls @ 1,000 mls/hr IV BOLUS ONE Stop: 07/08/20 15:24 Last Admin: 07/08/20 14:36 Dose: 1,000 mls/hr Documented by: CALLUM Ondansetron HCl (Ondansetron 4 Mg/2 Ml Inj) 4 mg IV NOW ONE Stop: 07/08/20 14:26 Last Admin: 07/08/20 14:36 Dose: 4 mg Documented by: CALLUM Vital Signs Vital signs: Vital Signs - 8 hr 07/08/20 14:07 07/08/20 14:08 07/08/20 14:09 Temperature Pulse Rate 105 H Respiratory Rate Blood Pressure 167/105 H 149/84 H Pulse Oximetry 95 98 07/08/20 14:10 07/08/20 14:30 07/08/20 15:00 Temperature 98.4 F Pulse Rate 106 H 85 88 Respiratory Rate 16 Blood Pressure 149/84 H 137/86 Pulse Oximetry 96 95 93 07/08/20 15:30 Temperature Pulse Rate 82 Respiratory Rate Blood Pressure Pulse Oximetry 95 Medical Decision Making Medical Records Medical records reviewed: Yes I reviewed the patient's medical records. Lab Data Lab results reviewed: Yes I reviewed the patient's lab results. Result diagrams: 07/08/20 14:48 07/08/20 14:48 Labs: Lab Results 07/08/20 07/08/20 07/08/20 Range/Units 14:48 14:48 14:48 WBC 11.9 H (4.5-11.0) X10^3/uL RBC 5.36 (4.5-5.9) X10^6/uL Hgb 16.1 (13.5-17.5) g/dL Hct 47.1 (41-53) % MCV 87.8 (80-100) fL MCH 30.1 (26-34) PG MCHC 34.3 (30-36) % RDW 13.1 (11.6-14.8) % Plt Count 279 (150-400) X10^3/uL Neut % (Auto) 70.5 (50-75) % Lymph % (Auto) 20.1 L (25-40) % Deuel % (Auto) 7.7 (3-14) % Eos % (Auto) 0.5 L (2-4) % Baso % (Auto) 1.2 (0-2) % Neut # (Auto) 8400 H (0874-2199) /uL Lymph # (Auto) 2400 (0450-6483) /uL Deuel # (Auto) 900 (0-900) /uL Eos # (Auto) 100 (0-450) /uL Baso # (Auto) 100 (0-100) /uL D-Dimer 271 H (<230) ng/mL Sodium (137-145) mmol/L Potassium (3.4-5.1) mmol/L Chloride (98-107) mmol/L Carbon Dioxide (22-32) mmol/L BUN (9-20) mg/dL Creatinine (0.66-1.25) mg/dL Estimated GFR (>60) mL/min BUN/Creatinine Ratio (6-22) Glucose (70-100) mg/dL Calcium (8.4-10.2) mg/dL Magnesium (1.6-2.3) mg/dL Total Bilirubin (0.2-1.3) mg/dL AST (17-59) IU/L ALT (<50) IU/L Alkaline Phosphatase (38-126) U/L Total Protein (6.3-8.2) g/dL Albumin (3.5-5.0) g/dL Globulin (1.7-4.1) g/dL Albumin/Globulin Ratio (1.0-2.8) Lipase (23-300) U/L Procalcitonin < 0.05 (<0.5) ng/mL 07/08/20 Range/Units 14:48 WBC (4.5-11.0) X10^3/uL RBC (4.5-5.9) X10^6/uL Hgb (13.5-17.5) g/dL Hct (41-53) % MCV (80-100) fL MCH (26-34) PG MCHC (30-36) % RDW (11.6-14.8) % Plt Count (150-400) X10^3/uL Neut % (Auto) (50-75) % Lymph % (Auto) (25-40) % Deuel % (Auto) (3-14) % Eos % (Auto) (2-4) % Baso % (Auto) (0-2) % Neut # (Auto) (8876-9305) /uL Lymph # (Auto) (0669-7695) /uL Deuel # (Auto) (0-900) /uL Eos # (Auto) (0-450) /uL Baso # (Auto) (0-100) /uL D-Dimer (<230) ng/mL Sodium 135 L (137-145) mmol/L Potassium 4.0 (3.4-5.1) mmol/L Chloride 101 (98-107) mmol/L Carbon Dioxide 26 (22-32) mmol/L BUN 16 (9-20) mg/dL Creatinine 0.91 (0.66-1.25) mg/dL Estimated GFR > 60.0 (>60) mL/min BUN/Creatinine Ratio 17.6 (6-22) Glucose 97 (70-100) mg/dL Calcium 9.8 (8.4-10.2) mg/dL Magnesium 2.2 (1.6-2.3) mg/dL Total Bilirubin 1.0 (0.2-1.3) mg/dL AST 41 (17-59) IU/L ALT 43 (<50) IU/L Alkaline Phosphatase 100 (38-126) U/L Total Protein 8.0 (6.3-8.2) g/dL Albumin 4.8 (3.5-5.0) g/dL Globulin 3.2 (1.7-4.1) g/dL Albumin/Globulin Ratio 1.5 (1.0-2.8) Lipase 77 (23-300) U/L Procalcitonin (<0.5) ng/mL Imaging Data CT scan - abdomen/pelvis: Radiologist's Impression: FINDINGS: Image quality: Excellent. ABDOMEN: Lung bases: Lung bases are clear. Heart size is normal. Solid organs: Liver is normal in size and enhancement. Gallbladder appears normal . Biliary system is non dilated. Pancreas enhances normally. Spleen is normal in size and enhancement. No adrenal nodules. Kidneys demonstrate normal size and enhancement, without hydronephrosis. Peritoneum and bowel: Bowel loops demonstrate normal wall thickness and caliber except over short segment at the proximal transverse colon, hepatic flexure. This is seen near the gallbladder fundus, and represents an area of focal mural thickening that appears concentric, when compared to other sites throughout the colon. No adjacent or regional adenopathy is associated. No free fluid or air. Nodes and vessels: No retroperitoneal or mesenteric adenopathy by size criteria. Aorta and inferior vena cava are normal in size. Miscellaneous: No ventral hernias. PELVIS: Genitourinary: Bladder wall thickness is normal. Miscellaneous: No inguinal hernias or adenopathy. Bones: No suspicious bony lesions. No vertebral body compression fractures. Prior posterior spine fusion L4-5. IMPRESSION: A focus of infection is not found, but there is an area of possible concentric mural thickening involving the proximal transverse colon near the hepatic flexure, without evidence of immediate adjacent or regional adenopathy or distant metastatic disease. The segment of colon involved is estimated to measure approximately 7 cm in length and to demonstrate focal wall thickness of up to 11 mm when compared to 2-3 mm elsewhere. Endoscopic assessment likely is warranted based on this appearance. Dictated by: Beto Gipson M.D. on 07/08/2020 at 17:09 MDM Narrative Medical decision making narrative: 44-year-old gentleman with near syncopal episode today, 3 weeks of early satiety, loss of appetite and 35 lb weight loss now with upper abdominal pain. Lab work and abdominal CT will be obtained. Will request records from [facility] from last week's emergency room visit. Labs are reassuring however abnormality appreciated on CT scan involving the transverse colon with a section estimated to be 7 cm in length with focal wall thickness up to 11 mm when compared to 2-3 mm elsewhere. Care is reviewed with Dr. Schaffer, general surgeon. He will have his office contact the patient tomorrow in anticipation of probable colonoscopy scheduled for . COVID studies done in the emergency room today in anticipation of surgical procedure within 72 hours All findings are reviewed with the patient, he understands and is safe for home discharge Discharge Plan Departure Patient Disposition: Home Clinical Impression: Abnormal weight loss Abdominal pain Qualifiers: Abdominal location: upper abdomen, unspecified Qualified Code(s): R10.10 - Upper abdominal pain, unspecified Instructions: DI for Colonoscopy Activity Restrictions/Additional Instructions: Thank you for coming in today Your blood work was very reassuring with normal kidney and liver function. No signs of infection today. You CT scan does have a concerning finding. The transverse colon, area of your colon that is right in the middle of your upper abdomen where your hurting, shows an area of thickening of the wall that is approximately 7 cm long. This needs to be more thoroughly evaluated. The next step in the evaluation is a colonoscopy. I have spoken with Dr. Schaffer, our general surgeon about the findings this evening. His office will contact you tomorrow. If you do not hear from them before noon please call them. He is hoping that he will be able to arrange for colonoscopy on . We have done a COVID study in the emergency room today in anticipation of a surgical procedure being done within 72 hours. If you have worsening symptoms, new complaints or other issues arise, please feel free to come back to the emergency department I wish you the best Prescriptions: No Action gabapentin 600 mg Tablet 600 mg PO TID RF: 0 aspirin 81 mg Tablet,Delayed Release (Dr/Ec) 81 mg PO DAILY RF: 0 amlodipine [Norvasc] 10 mg Tablet 10 mg PO DAILY RF: 0 lisinopril 40 mg Tablet 40 mg PO DAILY RF: 0 celecoxib [Celebrex] 200 mg Capsule 200 mg PO BID PRN (Reason: pain) Qty: 60 RF: 0 hydroxyzine pamoate 25 mg Capsule 25 mg PO Q4HR PRN (Reason: spasms) Qty: 20 RF: 0 oxycodone-acetaminophen 5-325 mg Tablet See Rx Instructions .ROUTE .COMPLEX PRN (Reason: Pain, Moderate (4-6)) Qty: 35 RF: 0 docusate sodium [DOK] 100 mg Capsule 100 mg PO BID PRN (Reason: constipation) Qty: 30 RF: 0 Referrals: Rick Soto MD [Primary Care Provider] - Rojelio Schaffer MD [Physician] - Stand Alone Forms: Work Release Note
--- NOTE | 2020-07-08 14:26 | DI.CT.S_ITS ---
PROCEDURE: CT ABDOMEN PELVIS W CON INDICATIONS: upper abd pain, 35lb wt loss, early satiety/loss of appetite TECHNIQUE: After the administration of intravenous contrast, 5 mm thick sections acquired from the diaphragm to the symphysis. 5 mm coronal and sagittal reformats were acquired. For radiation dose reduction, the following was used: automated exposure control, adjustment of mA and/or kV according to patient size. COMPARISON: None. FINDINGS: Image quality: Excellent. ABDOMEN: Lung bases: Lung bases are clear. Heart size is normal. Solid organs: Liver is normal in size and enhancement. Gallbladder appears normal . Biliary system is non dilated. Pancreas enhances normally. Spleen is normal in size and enhancement. No adrenal nodules. Kidneys demonstrate normal size and enhancement, without hydronephrosis. Peritoneum and bowel: Bowel loops demonstrate normal wall thickness and caliber except over short segment at the proximal transverse colon, hepatic flexure. This is seen near the gallbladder fundus, and represents an area of focal mural thickening that appears concentric, when compared to other sites throughout the colon. No adjacent or regional adenopathy is associated. No free fluid or air. Nodes and vessels: No retroperitoneal or mesenteric adenopathy by size criteria. Aorta and inferior vena cava are normal in size. Miscellaneous: No ventral hernias. PELVIS: Genitourinary: Bladder wall thickness is normal. Miscellaneous: No inguinal hernias or adenopathy. Bones: No suspicious bony lesions. No vertebral body compression fractures. Prior posterior spine fusion L4-5. IMPRESSION: A focus of infection is not found, but there is an area of possible concentric mural thickening involving the proximal transverse colon near the hepatic flexure, without evidence of immediate adjacent or regional adenopathy or distant metastatic disease. The segment of colon involved is estimated to measure approximately 7 cm in length and to demonstrate focal wall thickness of up to 11 mm when compared to 2-3 mm elsewhere. Endoscopic assessment likely is warranted based on this appearance. Dictated by: Beto Gipson M.D. on 07/08/2020 at 17:09 Approved by: Beto Gipson M.D. on 07/08/2020 at 17:16
[2020-07-08] MEDS: ONDANSETRON 4 MG/2 ML INJ IV (14:36)
[2020-07-08] MEDS: SODIUM CHLORIDE 0.9% 1,000 ML 1000 ML IV (14:36)
--- NOTE | 2020-07-08 15:44 | PC.NURSE ---
2 failed attempts of iv access, called roshan hennessy rn. t cr hennessy able to place a midline.
[2020-07-08 15:45] LABS: Add Manual Diff / Slide Review NO; Basophils Absolute Auto 100 /uL (0-100); Basophils Percent Auto 1.2 % (0-2); Eosinophils Absolute Auto 100 /uL (0-450); Eosinophils Percent Auto 0.5 % (2-4); Hematocrit 47.1 % (41-53); Hemoglobin 16.1 g/dL (13.5-17.5); Lymphocytes Absolute Auto 2400 /uL (1100-4500); Lymphocytes Percent Auto 20.1 % (25-40); Mean Corpuscular HGB Conc 34.3 % (30-36); Mean Corpuscular Hemoglobin 30.1 PG (26-34); Mean Corpuscular Volume 87.8 fL (80-100); Monocytes Absolute Auto 900 /uL (0-900); Monocytes Percent Auto 7.7 % (3-14); Neutrophils Absolute Auto 8400 /uL (1500-7000); Neutrophils Percent Auto 70.5 % (50-75); Platelet Count 279 X10^3/uL (150-400); Red Blood Cell Count 5.36 X10^6/uL (4.5-5.9); Red Cell Distribution Width 13.1 % (11.6-14.8); White Blood Cell Count 11.9 X10^3/uL (4.5-11.0)
[2020-07-08 15:58] LABS: D Dimer 271 ng/mL (<230)
[2020-07-08 16:06] LABS: Alanine Aminotransferase 43 IU/L (<50); Albumin 4.8 g/dL (3.5-5.0); Albumin Globulin Ratio 1.5 (1.0-2.8); Alkaline Phosphatase 100 U/L (38-126); Aspartate Aminotransferase 41 IU/L (17-59); BUN Creatinine Ratio 17.6 (6-22); Blood Urea Nitrogen 16 mg/dL (9-20); Calcium 9.8 mg/dL (8.4-10.2); Carbon Dioxide 26 mmol/L (22-32); Chloride 101 mmol/L (98-107); Estimated Glomerular Filt Rate > 60.0 mL/min (>60); Globulin 3.2 g/dL (1.7-4.1); Glucose 97 mg/dL (70-100); HEMOLYSIS 20 (0-50); Lipase 77 U/L (23-300); Magnesium 2.2 mg/dL (1.6-2.3); Sodium 135 mmol/L (137-145)
[2020-07-08 16:36] LABS: Procalcitonin < 0.05 ng/mL (<0.5)
[2020-07-08 18:23] LABS: COVID19 -Nasal RAPID Negative (Negative)
== END 2020-07-08 18:15 | disposition home or self-care (01) ==
PROVIDERS: Emergency Provider Emergency Medicine; PCP Family Medicine
DX: R63.4 Abnormal weight loss (principal); R10.10 Upper abdominal pain, unspecified; R11.0 Nausea; I10 Essential (primary) hypertension; E78.5 Hyperlipidemia, unspecified; K85.90 Acute pancreatitis without necrosis or infection, unspecified
CPT/HCPCS: 36415; 74177; 80053; 83690; 83735; 84145; 85025; 85379; 87635; 96361; 96374; 99283; 99284; J2405; Q9967

== ENCOUNTER 2020-07-10 14:47 | Day surgery (SDC) | payer OTHER, SELFPAY ==
[2020-05-06 12:15] VITALS: BMI 33.0
[2020-07-10] VITALS (14 sets, daily range): BP systolic 118–152; BP diastolic 70–100; PULSE 68–101; RESP 14–20; TEMP 35.8–36.1; O2SAT 95–100; BMI 31.6
--- NOTE | 2020-07-10 | DI.RAD.S_ITS ---
PROCEDURE: XR ACUTE ABDOMEN SERIES INDICATIONS: sp colonoscopy with nausea TECHNIQUE: One view chest and two views of the abdomen were acquired. COMPARISON: [facility], CT, CT ABDOMEN PELVIS W CON, 07/08/2020, 16:25. [facility], CR, XR CHEST 2V, 10/19/2019, 17:26. FINDINGS: Surgical changes and devices: Fusion at L4-L5 with discectomy and disc prosthesis. Chest: Lungs are clear. Heart size is normal. Trace right pleural effusion. No pneumoperitoneum. Abdomen: Bowel gas pattern is normal. No suspicious calcifications. Visualized solid organ contours appear normal. Bones: No suspicious bony lesions. IMPRESSION: Nonspecific bowel gas pattern. No definitive free air. Dictated by: Gurmeet Mon M.D. on 07/10/2020 at 19:13 Approved by: Gurmeet Mon M.D. on 07/10/2020 at 19:16
--- NOTE | 2020-07-10 | PATH_ITS ---
[facility] Accession Number: [id number] . 01 Material submitted: . colon - TRANSVERSE COLON STRICTURE BIOPSIES . 02 Diagnosis: Transverse Colon, Stricture, Biopsies: Colonic mucosa with denuded epithelium and extravated red blood cells in the lamina propria. Please see comment. Negative for active, chronic and microscopic colitis. No evidence of dysplasia or malignancy. COUNTS INCLUDE 234 BEDS AT THE [facility] 07/15/2020 1812 Local . 02 Comment: The transverse colon biopsy shows patchy denuded epithelial surface changes without active inflammation or features of lymphocytic or collagenous colitis. There is no crypt dropout or atrophy. The morphologic appearance raises the differential diagnosis of trauma/prolapse, procedure related change, infection or medication related mucosal injury. Acute ischemia can not be excluded. . 02 Electronically signed: . Elsa Vila MD, Pathologist NPI- [id number] . 01 Gross description: . TRANSVERSE COLON STRICTURE BIOPSIES: Received in formalin are 4 fragment(s) of mccoy, soft tissue measuring 0.5 x 0.3 x 0.2 cm to 0.3 x 0.2 x 0.2 cm submitted entirely in 1 cassette(s) /QBJ 07/11/2020 0728 Local . 02 Microscopic: . . . . 02 Pathologist provided ICD-10: R93.89 . 02 CPT . 336383 Performed at: 01 [facility] [address], [place], [place] [id number] MD Anders Macias MD Phone: [phone] Performed at: 02 [facility] [address] [place], [place] [id number] MD Elsa Vila MD Phone: [phone]
[2020-07-10] MEDS: LACTATED RINGERS 1,000 ML 200 ML IV (15:28)
--- NOTE | 2020-07-10 15:42 | P.HP_ITS ---
History of Present Illness History of Present Illness Date Patient Seen: 07/10/20 Time Patient Seen: 15:42 Chief complaint: [facility] [place] Narrative: 44M history of diverticulitis seen in the ER this past week with abdominal pain. He has lost approximately 35 lbs over the past month or two. CT A/P this week demonstrates concentric mural thickening involving the proximal transverse colon near the hepatic flexure, without evidence of immediate adjacent or regional adenopathy or distant metastatic disease. The segment of colon involved is estimated to measure approximately 7 cm in length and to demonstrate focal wall thickness of up to 11 mm. He had a prior colonoscopy approximately 10 years ago for diverticulosis that was reportedly normal. Last episode of diverticulitis was 2-3 yrs ago uncomplicated. No family history of colon cancer. No blood per rectum. Patient History Medical History Asthma Diverticulitis HLD (hyperlipidemia) HTN (hypertension) Low back pain Pancreatitis Sciatica Surgical History History of esophagogastroduodenoscopy (EGD) Hx of appendectomy Hx of left knee surgery Family & Social History Social History: household members spouse,children Tobacco & Substance use: Smoking Status Former smoker alcohol intake current alcohol intake frequency holiday/special occasion Substance Use Type marijuana Meds Home Medications and Allergies Home Medications Medication Instructions Recorded Confirmed Type amlodipine [Norvasc] 10 mg PO DAILY 04/29/20 07/10/20 History aspirin 81 mg PO DAILY 04/29/20 07/10/20 History lisinopril 40 mg PO DAILY 04/29/20 07/10/20 History Allergies Allergy/AdvReac Type Severity Reaction Status Date / Time codeine Allergy Mild ITCHING Verified 07/08/20 14:16 methylprednisolone AdvReac Severe Hypertension, Verified 07/08/20 14:16 chest pain prednisone AdvReac Severe Hypertension, Verified 07/08/20 14:16 chest pain Review of Systems Review of Systems Narrative: A 10 point review of systems is negative except as noted in the HPI Exam Vital Signs (past 8 hours): - 07/10/20 15:09 Temperature 97 F L Pulse Rate 89 Respiratory Rate 18 Blood Pressure 133/79 Pulse Oximetry 97 Oxygen Delivery Method Room Air Narrative Exam Narrative: General-no acute distress, well nourished adult male HEENT-moist mucous membranes, no scleral icterus Neck-supple, no lymphadenopathy Chest- non labored respirations, clear to auscultation bilaterally Cardiac-regular rate no peripheral edema Abdomen-soft, nontender, non distended Extremities-warm, well perfused Neurological-alert and oriented, no focal deficits Assessment & Plan Assessment and plan (1) Abdominal pain: Qualifiers: Abdominal location: upper abdomen, unspecified Qualified Code(s): R10.10 - Upper abdominal pain, unspecified Status: Acute Assessment & Plan narrative: 44M with abdominal pain and CT findings of concentric thickening of the transverse colon. Colonoscopy is indiciated to evaluate for any intra lumminal pathology. Technical details were discussed. Risks, benefits, alternatives explained. Risks including but not limited to abdiaziz cardial infarction, aspiration, bleeding, pain, missed lesion, incomplete examination, need for further radiographic studies, colonic perforation, and need for major abdominal surgery were discussed. All questions were answered to their satisfaction, and they are in agreement with this plan.
[2020-07-10] MEDS: fentaNYL 250 MCG/5 ML INJ IV (16:21)
[2020-07-10] MEDS: MIDAZOLAM 5 MG/5 ML VIAL IV ×3 (16:21→16:50)
[2020-07-10] MEDS: ONDANSETRON 4 MG/2 ML INJ IV ×2 (17:08→17:45)
--- NOTE | 2020-07-10 17:18 | SUR.PHASEI ---
UPON ARRIVAL TO PACU, PT. VOMITED UP SMALL, UNMEASURE AMOUNT OF BILE AND SPIT. SLIGHTLY DIAPHORETIC, COOL, WET WASHCLOTHES APPLIED TO FOREHEAD AND BACK OF NECK, PT. ARCHANA. WELL. HE DENIES PX. ONGOING MONITORING.
--- NOTE | 2020-07-10 17:31 | SUR.PHASEI ---
DR. DONOVAN AT PT'S BEDSIDE.
--- NOTE | 2020-07-10 17:46 | PM.OP.ENDO ---
Operative Date/Time/Diagnoses Date of procedure: 07/10/20 Time of procedure: 17:47 Pre-op diagnosis: abdominal pain, colonic thickening Post-op diagnosis: other (transverse colonic stricture) Procedure & Clinicians Study performed: Colonoscopy Same procedure as scheduled: Yes Indications: 44-year-old man multiple episodes diverticulitis affecting his transverse colon the past 10 years. He presents with 1 month of worsening abdominal pain bloating and a [address] demonstrates concentric thickening of the transverse colon. Surgeon: Rojelio Schaffer Procedure Notes Procedure in detail: The history and physical was performed/updated and the patient is ASA class is 2. The procedure was discussed in detail with the patient. Potential risks complications including infection, bleeding, missed diagnosis, perforation, need for surgery, and were explained. Their questions were answered and informed consent was obtained. Patient was brought to the procedure room and placed standard monitoring equipment. The patient's vital signs were monitored continuously throughout the entire procedure. Prior to starting time-out was performed. The patient was placed in the left lateral recumbent position. Procedural sedation was administered. Examination began with a thorough inspection of the perianal area there was no evidence of fissures, fistulae, external hemorrhoids or cutaneous malignancy. The colonoscopy scope was then placed into the anal canal and was advanced to the cecum, which was identified by the ileocecal valve, the appendiceal orifice and the confluence of the taenia. The scope was then slowly withdrawn examining colon thoroughly in all directions, irrigating it of any residual stool. A stricture of the distal transverse colon of approximately 10 cm length. Was able to accommodate the adult scope but markedly different then the remainder of the colon. Concentrically thickened. Multiple biopsies taken. Tattooed with 3 ml of ink in multiple quadrants. The patient tolerated the procedure well. They will be discharged once criteria are met. The prep was of good/excellent quality. The withdrawl time was 15 minutes. The sedation time was 40 minutes. Findings: stricture Specimen(s): other (transverse colon) Complications: none Impression: benign stricture of transverse colon Post-procedure Recommendations: Other recommendation (plan for segmental colectomy July 29) Disposition: same day surgery
--- NOTE | 2020-07-10 17:49 | SUR.PHASEI ---
PT. TO HAVE ABDOMINAL X-RAY.
--- NOTE | 2020-07-10 17:49 | SUR.PHASEI ---
PT. RESTING COMFORTABLY AT THIS TIME, IVF STILL INFUSIING, ONGOING MONITORING
== END 2020-07-10 18:45 | disposition home or self-care (01) ==
PROVIDERS: Referring Provider Surgery; Visit Provider Surgery
PROC: 0DJD8ZZ Inspection of Lower Intestinal Tract, Via Natural or Artificial Opening Endoscopic (ICD-10-PCS; CPT 45378; principal; 2020-07-10 16:00)
DX: K56.600 Partial intestinal obstruction, unspecified as to cause (principal); J45.909 Unspecified asthma, uncomplicated; E78.5 Hyperlipidemia, unspecified; I10 Essential (primary) hypertension
CPT/HCPCS: 45380; 74022; 99152; 99153; J2250; J2405; J3010

== ENCOUNTER → 2020-07-28 11:43 | Outpatient (CLI) | payer OTHER, SELFPAY ==
[2020-05-06 12:15] VITALS: BMI 33.0
[2020-07-28 12:24] LABS: COVID19 -Nasal RAPID Negative (Negative)
== END ==
PROVIDERS: Visit Provider Surgery
DX: Z01.812 Encounter for preprocedural laboratory examination (principal); Z20.822 Contact with and (suspected) exposure to COVID-19
CPT/HCPCS: 87635; C9803

== ENCOUNTER 2020-07-29 09:59 | Inpatient (IN) | payer OTHER, SELFPAY ==
[2020-05-06 12:15] VITALS: BMI 33.0
[2020-07-22 12:49] VITALS: BMI 32.9
[2020-07-29] VITALS (21 sets, daily range): BP systolic 88–144; BP diastolic 42–96; PULSE 84–98; RESP 12–22; TEMP 35.8–36.8; O2SAT 95–100; BMI 32.9
--- NOTE | 2020-07-29 | PATH_ITS ---
[facility] Accession Number: [id number] . 01 Material submitted: . colon - RIGHT COLON . 01 Clinical history: . INPT . 02 Diagnosis: Right Colon, Segmental Resection: Diverticulosis. Negative for active, chronic and microscopic colitis. Negative for granulomas, dysplasia and malignancy. V 08/01/2020 1249 Local . 02 Electronically signed: . Elsa Vila MD, Pathologist NPI- [id number] . 01 Gross description: . Received in formalin, labeled right colon consists of a 2.5 cm in length by 2.2 cm in diameter portion of terminal ileum with attached cecum and ascending colon measuring 20.5 cm in length by 7.5 cm in circumference. The proximal and distal margins are stapled. There is no identifiable appendix. The serosa is mccoy-pink and smooth and there is a moderate amount of attached mesenteric adipose tissue. Opening reveals a mccoy-pink mucosa with normal mucosal folds. The wall thickness averages 0.2 cm. No masses or lesion are identified. Sectioning through the attached adipose tissue reveals four lymph nodes ranging from 0.2 to 0.5 cm. Communications Administrator sections are submitted. . A1 - proximal margin, technical support representative perpendicular sections. A2 - distal margin, technical support representative perpendicular sections. A3 - ileocecal valve. A4 - appendiceal orifice. A5 - technical support representative ascending colon. A6 - lymph nodes. ([id number]) /MRV 07/31/2020 1507 Local . 02 Pathologist provided ICD-10: K57.90 . 02 CPT . 368671 Performed at: [address] [facility], [place], [place] [id number] MD Anders Macias MD Phone: [phone] Performed at: [address] [facility] [place] [address] [address] [place] [id number] MD Elsa Vila MD Phone: [phone]
[2020-07-29] MEDS: LACTATED RINGERS 1,000 ML 100 ML IV ×4 (10:26→17:03)
--- NOTE | 2020-07-29 11:12 | PM.PREOP ---
Pre-operative Note COVID-19 COVID-19 status: Negative Interval Note History & Physical reviewed/Exam performed by Physician: Yes Changes to H&P: No
[2020-07-29] MEDS: PIPERACILLIN-TAZO 3.375 GM/50 ML FROZ.PIGGY IV (11:54)
--- NOTE | 2020-07-29 11:55 | SUR.PREOP ---
11:29 Assisted anesthesiology with placement of epidural for surgery. Patient placed on cardiac monitoring and oxygen at 2 liters via nasal cannula for moderate sedation during procedure. Patient tolerated well with no adverse events noted. VSS during and after procedure. To OR at 11:50.
--- NOTE | 2020-07-29 12:22 | SUR.OPER ---
Lithotomy on padded OR bed. [place] Pad Positioner under torso. Head on pillow, arms padded and tucked at sides. Legs secured in padded yellow fins stirrups.
--- NOTE | 2020-07-29 13:31 | P.PCN_ITS ---
Procedures Date/Time Date of procedure: 07/29/20 Time of procedure: 11:25 General Procedure description: Thoracic epidural for post-op pain control after upper abdominal incision for transverse colectomy by Dr. Schaffer. Discussed risks and benefits of post-op epidural procedural placement and pain management. Patient agreed to proceed. Monitoring of vitals performed by pre-op nurse. Patient given 2mg midazolam and 100mg fentanyl for procedural sedation. In sitting position, T8-9 interspace was palpated and marked. Skin prepped with chlorhexidine and allowed to fully dry. Site draped with sterile plastic covers. I wore sterile gloves with hat and mask. Skin and interspinous ligaments were numbed with about 5 ml 1% lidocaine. Using midline approach, an 18 ga Active Storage needle with low resistance saline syringe was used to locate epidural space. After second pass, loss of resistance occured at 9cm depth from skin. Epidural catheter threaded without parasthesias. Secured to skin at 14 cm. A test dose of 5ml 1.5% lidocaine with epi was given. No observed changes in HR, BP or sensation. Patient tolerated procedure well.
[2020-07-29] MEDS: BUPIVACAINE 0.25% (PF) VIAL 30 ML INJ (13:59)
[2020-07-29] MEDS: ONDANSETRON 4 MG/2 ML INJ IV ×2 (15:59→16:59)
--- NOTE | 2020-07-29 16:05 | P.OP_ITS ---
Operative Date/Time/Diagnoses Date of procedure: 07/29/20 Time of procedure: 16:05 Pre-op diagnosis: colonic stricture Post-op diagnosis: same Procedure & Clinicians Procedure: laparoscopic assisted right hemicolectomy Same procedure as scheduled: Yes Indications: 44-year-old man multiple episodes of uncomplicated diverticulitis developed persistent abdominal pain and had a 50 lbs weight loss over [address] scan demonstrates a 7 cm segement of the right colon near the hepatic flexure with concentric wall thickening. Subsequent colonoscopy demonstrated a long colonic stricture pathology was without evidence of malignancy. Presents for an elective laparoscopic assisted colectomy. Surgeon: Rojelio Schaffer Webmethods Architect: Pedro Hinton Anesthesia Type: General Operative Notes Findings: Right colon demonstrates concentric mural thickening at approximately the hepatic flexure no john tumor Specimen(s): other (Right colon) Estimated Blood Loss (mL): 50 Procedure in detail: Patient was brought to the operating room placed supine on the table. Bilateral lower extremity compression devices were applied. General anesthesia was induced and he was intubated with an endotracheal tube. He received Zosyn prior to skin incision. He was then placed into the lithotomy position and appropriately padded. Emanuel catheter was sterilely placed. He was prepped and draped in sterile fashion. Time-out was performed. An infraumbilical incision was made the umbilical stalk was grasped elevated and the fascia was sharply incised the abdomen was entered atraumatically. 12 mm balloon trocar was then placed into the abdomen pneumoperitoneum was established. A careful inspection of the abdomen was made. There was no evidence of injury upon entry. Two additional 5 mm ports were placed a in the right and left abdominal wall just outside of the rectus. The transverse colon was inspected and there was tattoo markings within the abdomen however I could not see tattoo clearly on the wall of the colon. An additional 5 mm port was placed in the right upper quadrant. The hepatic flexure was mobilized. The gastro colic ligament was divided the stomach was elevated and the transverse colon was moved inferiorly. The duodenum was identified and protected posteriorly out of harm's way. The mobilization then continued inferior along the white line of Toldt towards the cecum. This allowed the right colon and the hepatic flexure to be mobilized to the midline. Palpating along the right colon and the transverse colon laparoscopically I was still unable to determine exactly the site of his pathology. An upper midline incision was made. The right colon was then completely mobilized off its lateral attachments the right ureter was identified by its for vermiculation and kept posterior out of harm's way. Palpation of the right colon demonstrated significant wall thickening of the mid right colon which was consistent with the CT findings however I could not clearly see the endoscopic tattoo emerging from the the colon wall. The terminal ileum was then mobilized up into the field. A window within the mesentery of the terminal ileum was and the small bowel was divided with the MONIKA stapler. The mesentery to the right colon was then divided using the LigaSure close to the bowel wall. The ileocolic pedicle was ligated with silk suture. I chose a point at the hepatic flexure just proximal to the middle colic vessels and the colon was then divided using the MONIKA stapler blue load. The right colon was then passed off the field as a specimen. I opened the right colon on the back table and inspected the lumen. There was no tumor there was a segment of concentric wall thickening. Proceeded with a [id number] functional end-to-end anastomosis between the terminal ileum and transverse colon. A crotch stitch was placed with 3-0 silk suture. An enterotomy and a colotomy were made and then the limbs of bowel were joined along the antimesenteric length with the MONIKA stapler blue load. The anastomosis was widely patent and hemostatic on internal inspection. The common opening was then closed in a running fashion using 3-0 PDS suture. The suture line was then oversewn with interrupted silk suture. I tested the anastomosis to ensure there was no leak and none was present. It was well perfused and without tension. The abdomen was then irrigated with several L of sterile saline. The fascia was then closed in interrupted fashion using 1. PDS suture. The subcutaneous tissue was reapproximated using Vicryl and skin closed with ciara. The laparoscopic port incisions were then closed with ciara as well. Patient emerged from anesthesia and transferred to the recovery room in stable condition. Complications: none Post-operative Condition: stable Disposition: Acute Care
--- NOTE | 2020-07-29 16:31 | SUR.PHASEI ---
dr. austin at bedside
--- NOTE | 2020-07-29 17:06 | DIET.PN ---
Dietary Progress Note RD Note: Pt seen 1 day preop in surgery office for ERAS protocol. Pt has lost 50# over the past several months but has been drinking Ensure daily for the past several weeks to support protein and nutrient needs. Pt currently post-op and assigned clear liquid diet. Will send ONS Douglas bid and ONS Ensure Clear tid to support postoperative healing supplementing 42% protein needs. Will adjust ONS when pt on full liquid diet, pt tolerates most dairy (yogurt/cheese) but not plain straight milk.
--- NOTE | 2020-07-29 17:40 | PC.NURSE ---
Addendum entered by Hailey Sandoval R.N. 07/29/20 22:15: Pt c/o vomiting has had a total of 104 out in emesis, [address] Schaffer on pt status, new orders received for 8mg zofran Q6, administered. Pt c/o additional pain r/t vomiting, pain 7/10 administered prn pain medication as ordered. No further needs at this time, at bedside, bed low and locked, call light within reach. Original Note: Evening shift note: Pt arrived via bed to room, A/Ox3 denies pain at this time, abdominal dressing CDI, able to use IS and achieve 1500. Pt c/o some nausea, had some emesis, relieved by zofran. Epidural infusing per order, pt able to use PROJECT SURVEYOR. Fluids infusing per order, pt oriented to room and call light system, bed low and locked, call light within reach, will continue to monitor.
[2020-07-29] MEDS: ACETAMINOPHEN 325 MG TABLET 650 MG PO (18:36)
[2020-07-29] MEDS: FENT 2MCG/ML BUPIV 0.125% EPI 200 MCG/100 ML PLAST..BAG 8 MCG EPIDURAL (18:38)
[2020-07-29] MEDS: ONDANSETRON 8 MG in SODIUM CHLORIDE 0.9% 50 ML 216 ML IV (20:28)
[2020-07-29] MEDS: OXYCODONE IR 10 MG TABLET PO (21:27)
[2020-07-30] VITALS (9 sets, daily range): BP systolic 116–139; BP diastolic 71–79; PULSE 72–96; RESP 16–20; TEMP 36–37.2; O2SAT 93–98
[2020-07-30] MEDS: LACTATED RINGERS 1,000 ML 100 ML IV ×2 (01:22→07:49)
[2020-07-30] MEDS: FENT 2MCG/ML BUPIV 0.125% EPI 200 MCG/100 ML PLAST..BAG 8 MCG EPIDURAL ×3 (02:34→20:04)
[2020-07-30 04:55] LABS: Add Manual Diff / Slide Review NO; Basophils Absolute Auto 200 /uL (0-100); Basophils Percent Auto 1.1 % (0-2); Blood Urea Nitrogen 13 mg/dL (9-20); Carbon Dioxide 25 mmol/L (22-32); Chloride 105 mmol/L (98-107); Eosinophils Absolute Auto 0 /uL (0-450); Estimated Glomerular Filt Rate > 60.0 mL/min (>60); Glucose 147 mg/dL (70-100); HEMOLYSIS 15 (0-50); Hematocrit 41.1 % (41-53); Lymphocytes Absolute Auto 600 /uL (1100-4500); Magnesium 1.9 mg/dL (1.6-2.3); Mean Corpuscular HGB Conc 34.1 % (30-36); Mean Corpuscular Hemoglobin 30.2 PG (26-34); Mean Corpuscular Volume 88.5 fL (80-100); Monocytes Absolute Auto 1600 /uL (0-900); Monocytes Percent Auto 7.8 % (3-14); Neutrophils Absolute Auto 18400 /uL (1500-7000); Neutrophils Percent Auto 88.1 % (50-75); Phosphorous 3.4 mg/dL (2.5-4.5); Platelet Count 248 X10^3/uL (150-400); Potassium 4.5 mmol/L (3.4-5.1); Red Blood Cell Count 4.64 X10^6/uL (4.5-5.9); Red Cell Distribution Width 13.1 % (11.6-14.8); Sodium 135 mmol/L (137-145); White Blood Cell Count 20.9 X10^3/uL (4.5-11.0)
[2020-07-30] MEDS: ACETAMINOPHEN 325 MG TABLET 650 MG PO (05:13)
[2020-07-30] MEDS: OXYCODONE IR 10 MG TABLET PO (05:13)
--- NOTE | 2020-07-30 06:17 | PC.NURSE ---
Student Services Dean Note-Patient dozed intermittently. Epidural Fent/bupivicaine @ 8ml/hr + 4ml demand mostly effective for pain control, has requested additional oxycodone per prn for breakthrough and receiving PO Tylenol scheduled. Dermatone costal margin bilaterally until am when he states full sensation on Lt. Abdominal drsg CDI, bowel sounds absent, denies nausea, only taking sips and chips. VSS.
[2020-07-30] MEDS: ONDANSETRON 8 MG in SODIUM CHLORIDE 0.9% 50 ML 216 ML IV (09:01)
[2020-07-30] MEDS: ENOXAPARIN 40 MG/0.4 ML SYRINGE SUBCUT (10:20)
[2020-07-30] MEDS: SODIUM CHLORIDE 0.9% FLUSH 10 ML IV ×2 (10:20→19:38)
--- NOTE | 2020-07-30 10:48 | PT.IIE ---
Current Diagnoses Other intestinal obstruction unspecified as to partial versus complete obstruction (07/29/20) Surgery Performed Operation Date: 07/29/20 11:30 Actual Procedures p Laparoscopic assisted Right Colectomy(Not Applicable) - Rojelio Schaffer MD Surgical History (Last Reviewed 07/28/20 @ 15:50 by Rojelio Schaffer MD) History of esophagogastroduodenoscopy (EGD) History of lumbar spinal fusion (05/06/20) Hx of appendectomy Hx of left knee surgery Medical History (Last Reviewed 07/28/20 @ 15:50 by Rojelio Schaffer MD) Asthma Chest pain (04/15/20) Diverticulitis HLD (hyperlipidemia) HTN (hypertension) Low back pain Pancreatitis Sciatica Physical Therapy Inpatient Evaluation/Re-Eval M1 PT/OT-IP Prior Functional Status Start: 07/30/20 12:03 Freq: NEEDED Status: Active Protocol: Document 07/30/20 10:48 AB (Rec: 07/30/20 12:16 AB [email or web address]) Medical Review Prior Functional Status Medical History Reviewed Yes Communication able to make needs known Mobility and Gait pt stated that he is independent with all mobilities and ambulation without AD Social History Household Members spouse,children Living Arrangements Mobile home Number of Floors (Floors) One Floor Number of Stairs To Enter/Railing? 5 steps R rail ascending Home Environment Standard Height Toilet,Tub/ Shower Home Equipment Raised Toilet Seat w/Armrests, Hand Held Shower M2 PT-IP Current Condition Start: 07/30/20 12:03 Freq: NEEDED Status: Active Protocol: Document 07/30/20 10:48 AB (Rec: 07/30/20 12:16 AB [email or web address]) Physical Therapy Current Condition Current Condition Evaluation Date 07/30/20 Treatment Diagnosis s/p R hemicolectomy; difficulty in walking Onset Date 07/29/20 Precautions Abdominal Surgery Precautions Log Roll,Lifting Restrictions, Gait Belt above Incisional Area M3 PT-IP Subjective Start: 07/30/20 12:03 Freq: NEEDED Status: Active Protocol: Document 07/30/20 10:48 AB (Rec: 07/30/20 12:16 AB [email or web address]) Subjective Physical Therapy Visit Type Type Initial Evaluation Visit Start Time 10:48 Visit Stop Time 11:05 Total Visit Minutes 17 Number of TRAVOGRAPH OPERATOR Visits 0 Physical Therapy Visit Comments Patient Comments c/o nausea and initially refusing but agreed after encouragement Therapy Pain Assessment Pain When Pain Assessed At Rest Pain Present Pain Present Pain Reported Location Abdominal Intensity 5 M4 PT-IP Mobility and Gait Start: 07/30/20 12:03 Freq: NEEDED Status: Active Protocol: Document 07/30/20 10:48 AB (Rec: 07/30/20 12:16 AB [email or web address]) PT-Bed Mobility Assessment Rolling Type of Rolling Log Rolling Level of Assist Standby Assistance Supine to Sit Supine to Sit Standby Assistance,Bedrails Sit to Supine Sit to Supine Moderate Assistance,Bedrails PT-Transfer Assessment Sit to and From Stand Sit to and from Stand Contact Guard Assistance,1 Person Assistance Equipment Transfer Assistive Device Gait Belt,Front Wheeled Walker Orthotic/Prosthetic Devices or Brace: No Comments Mobility Comments educated on abdominal precautions and log roll bed mobility. pt stated that he just had a back surgery done last april 2020 and is familiar with log roll bed mobility. pt completed supine to sit SBA using bed rail and required increase timet o complete task . completed sit to stand CGA and ambulated in room using FWW CGa to min A and cues. pt with unsteady gait. pt requested to go back to bed after a few feet of walking with c/o on giong nausea. completed sit to supine mod A for LE elevation. positioned in bed. call light and table placed within reach. Gait Assessment Gait Gait Assistance Required: Contact Guard Assist,Minimum Assistance Distance (Feet) 20 Able to Maintain Weight Bearing Status Yes During Gait Assistive Devices Assistive Device Gait Belt,Front Wheeled Walker Orthotic/Prosthetic Devices or Brace: No Gait Deviations General Gait Pattern Antalgic,Decreased Stride Length,Decreased Feet Clearance,Step-to Gait Factors Limiting Gait Function Factors Limiting Gait Function Decreased Activity Tolerance, Decreased Strength,Pain,Poor Balance Comments Gait Comments pt presents with unsteady gait and requires assist with use of FWW PT-Balance Assessment Sitting Balance and Reactions Static Sitting Balance Ability Good Dynamic Sitting Balance Ability Good Standing Balance and Reactions Static Standing Balance Ability Fair Dynamic Standing Balance Ability Fair Device Used FWW M5 PT-IP Objective Assessments Start: 07/30/20 12:03 Freq: NEEDED Status: Active Protocol: Document 07/30/20 10:48 AB (Rec: 07/30/20 12:16 AB [id number]) Orientation Orientation/Cognition Level of Alertness Alert Orientation Name,Place,Situation Language Function Ability No Deficits Noted Safety Awareness Decreased Safety Awareness Memory Description No Deficits Noted Gross Range of Motion Lower Extremity ROM Assessment Within Functional Limits Strength Lower Extremity Strength Assessment Within Functional Limits Coordination Assessment Gross Coordination Gross Coordination WNL Muscle Tone Muscle Tone WNL Yes M6 PT-IP Treatment Start: 07/30/20 12:03 Freq: NEEDED Status: Active Protocol: Document 07/30/20 10:48 AB (Rec: 07/30/20 12:16 AB [id number]) Physical Therapy Treatment Education Education Provided Precautions,Safety M7 PT-IP Assessment and Plan Start: 07/30/20 12:03 Freq: NEEDED Status: Active Protocol: Document 07/30/20 10:48 AB (Rec: 07/30/20 12:16 AB [id number]) PT Summary Assessment and Plan Potential Rehabilitation Potential Good Status of Condition at Evaluation Evolving Summary Impairments Pain,ROM,Strength,Balance, Coordination,Sensation,Bed Mobility,Transfers,Gait, Activity Tolerance Assessment Summary pt requiring CGA to mod A with mobility and has decrease activity tolerance with c/o nausea. d/ plan depending on progress but pt stated that he has his family at home to assist him. will continue to assess progress. Goals Bed Mobility Goal Independent Transfer Goal Independent,Front Wheeled Walker Gait Goal Independent,Front Wheel Walker Gait Distance 100 Other Goals improve ambulation without AD 200 ft SBA up/down 5 steps R rail SBA Days to Meet Goals 10 Frequency of Treatment Frequency Of Treatment Once a Day Treatment Plan Physical Therapy Treatment Plan Bed Mobility Training,Transfer Training,Gait Training, Therapeutic Exercise,Balance Retraining,Post Op Education, Discharge Planning,Hot or Cold Pack,Neuromuscular Re-ed, Coordination Retraining,Manual Therapy Other Recommendations and Next Treatment ambulation Focus Recommendations To Nursing Amount of Assist Needed 1 Person Assist Discharge Recommendations PT Discharge Recommendations Home with Assistance,Home Health Transportation Needs at Discharge Private Vehicle
[2020-07-30] MEDS: METOCLOPRAMIDE 10 MG/2 ML INJ IV ×2 (11:12→16:19)
--- NOTE | 2020-07-30 11:40 | CM.DANOTE ---
DCP: Case received, EMR reviewed and met with patient. Introduced self and role. Was able to obtain information from patient regarding his baseline activity level prior to hospitalization. DCP assessment completed with information currently available. Patient is a 44 year old male who admitted yesterday morning to the care of the surgical team. PCP: Had Dr. Soto, who left the area, but currently under a provider at [facility]. Payer: confirmed: Diana. Patient came to the hospital via private vehicle due to abdominal discomfort. Patient has history of diverticulitis, and had a lap colectomy completed yesterday. Met with patient in his room. He was sitting up in bed. He is alert and oriented, pleasant. He resides in [place] with his , Lina. He is employed at [employer]. Patient is independent at baseline. P: DCP to continue to follow for any needs. He will be working with P.T. Will check therapy notes. Patient should be able to go home when he is medically stable. Ijeoma Lance RN/Surgical Garment Assembly Supervisor
--- NOTE | 2020-07-30 13:22 | OT.IPNOTE ---
Per nursing, pt just wanting to rest and did not feel that pt would have any OT needs. To touch base with pt later when he is awake and most likely end up discharge OT eval orders. From chart review pt has had recent spinal surgery 05/06/21 and has LB dressing equipment and assist at home.
--- NOTE | 2020-07-30 13:32 | PM.PNPO.1 ---
Subjective Subjective Date Patient Seen: 07/30/20 Time Patient Seen: 13:32 Interval history: Two episodes of emesis overnight. Mild nausea this morning improving with Zofran will trial Reglan in addition. Worked with physical therapy ambulating quite well. Epidural was adjusted by Anesthesia this morning pain control currently very good. Afebrile vital signs within normal limits urine output appropriate. Exam Vital Signs (past 8 hours): - 07/30/20 08:00 07/30/20 12:00 Temperature 98.0 F 97.6 F Pulse Rate 73 84 Respiratory Rate 18 18 Blood Pressure 127/73 137/77 Pulse Oximetry 96 96 Oxygen Delivery Method Room Air Oxygen Flow Rate 0 Narrative Exam Narrative: General adult male alert oriented no acute distress Chest nonlabored respiration Abdomen soft minimally tender along the midline incision dressings are clean dry intact Objective Labs Result Diagrams: 07/30/20 04:30 07/30/20 04:30 Labs: Laboratory Results - last 24 hr 07/30/20 07/30/20 04:30 04:30 WBC 20.9 H RBC 4.64 Hgb 14.0 Hct 41.1 MCV 88.5 MCH 30.2 MCHC 34.1 RDW 13.1 Plt Count 248 Neut % (Auto) 88.1 H Lymph % (Auto) 3.0 L [place] % (Auto) 7.8 Eos % (Auto) 0.0 L Baso % (Auto) 1.1 Neut # (Auto) 14606 H Lymph # (Auto) 600 L [place] # (Auto) 1600 H Eos # (Auto) 0 Baso # (Auto) 200 H Sodium 135 L Potassium 4.5 Chloride 105 Carbon Dioxide 25 BUN 13 Creatinine 0.93 Estimated GFR > 60.0 BUN/Creatinine Ratio 14.0 Glucose 147 H Calcium 9.0 Phosphorus 3.4 Magnesium 1.9 PFSH Medical History Asthma Chest pain (04/15/20) Diverticulitis HLD (hyperlipidemia) HTN (hypertension) Low back pain Pancreatitis Sciatica Surgical History History of esophagogastroduodenoscopy (EGD) History of lumbar spinal fusion (05/06/20) Hx of appendectomy Hx of left knee surgery Social History marital status: household members: spouse and children occupational status: employed Smoking Status: Former smoker alcohol intake: current Assessment & Plan Post-op Postoperative Procedures: Procedures Operation Date: 07/29/20 11:30 Actual Procedures Side Surgeon p Laparoscopic assisted Right Colectomy Not Applicable Rojelio Schaffer MD Postoperative status narrative: 44-year-old man postoperative day 1 status post laparoscopic assisted right hemicolectomy for benign stricture. Doing as expected POD 1 #Emesis-Switch from clear liquids to NPO with sips until resolves. Continue Zofran and Reglan PRN. #Pain control-Epidural working well at this point continue. Continue waite catheter until epidural removed. #VTE prophylaxis-SCDs and pLovenox -OOB and physical therapy Time Spent With Patient Time with patient: 25 - 35 minutes
--- NOTE | 2020-07-30 14:11 | PC.NURSE ---
Rec'd pt in bed resting. C/o abd pain 7/10 unrelieved by PCEA doses. Pt reports intermittent nausea. Dr. Bernardo rounded and provided add'l bolus dosing which improved pain level to 3/10. Pt has reported intermittent nausea with one episode of unmeasured emesis today. Nausea has been relieved by PRN zofran and reglan. Diet was decreased to NPO x sips of clears/chips. Pt declined PO meds due to nausea. Dr. Schaffer aware. Pt has ambulated in the room x3 today. Denies flatus. Reported feeling the need to have BM, but no results. Pt is in good spirits and motivated.
[2020-07-30] MEDS: LACTATED RINGERS 1,000 ML 150 ML IV ×2 (14:31→21:10)
--- NOTE | 2020-07-30 14:42 | OT.IPNOTE ---
Able to speak to pt regarding any needs for OT. Pt states no OT needs at this time as has all LB dressing equipment, assist and PT has beenn working with the pt. Therefore discharge OT eval orders.
[2020-07-30] MEDS: hydrOXYzine 50 MG/ML INJ 25 MG IM (18:13)
[2020-07-30] MEDS: HYDROMORPHONE 1 MG INJ IV ×2 (19:37→22:54)
[2020-07-31] VITALS (13 sets, daily range): BP systolic 94–134; BP diastolic 51–84; PULSE 63–96; RESP 16–20; TEMP 36–37; O2SAT 94–98
[2020-07-31] MEDS: FENT 2MCG/ML BUPIV 0.125% EPI 200 MCG/100 ML PLAST..BAG 8 MCG EPIDURAL ×2 (01:28→09:30)
[2020-07-31] MEDS: OXYCODONE IR 10 MG TABLET PO ×2 (01:42→06:17)
[2020-07-31] MEDS: LACTATED RINGERS 1,000 ML 150 ML IV ×2 (04:02→09:48)
[2020-07-31 04:48] LABS: BUN Creatinine Ratio 15.9 (6-22); Blood Urea Nitrogen 14 mg/dL (9-20); Calcium 8.6 mg/dL (8.4-10.2); Carbon Dioxide 29 mmol/L (22-32); Chloride 105 mmol/L (98-107); Estimated Glomerular Filt Rate > 60.0 mL/min (>60); Glucose 93 mg/dL (70-100); HEMOLYSIS 31 (0-50); Magnesium 1.9 mg/dL (1.6-2.3); Phosphorous 2.5 mg/dL (2.5-4.5); Potassium 3.8 mmol/L (3.4-5.1); Sodium 135 mmol/L (137-145)
[2020-07-31 05:00] LABS: Basophils Absolute Auto 100 /uL (0-100); Basophils Percent Auto 0.5 % (0-2); Eosinophils Absolute Auto 0 /uL (0-450); Eosinophils Percent Auto 0.1 % (2-4); Hematocrit 34.4 % (41-53); Hemoglobin 11.6 g/dL (13.5-17.5); Lymphocytes Absolute Auto 1500 /uL (1100-4500); Mean Corpuscular HGB Conc 33.8 % (30-36); Mean Corpuscular Hemoglobin 30.3 PG (26-34); Mean Corpuscular Volume 89.5 fL (80-100); Monocytes Absolute Auto 1400 /uL (0-900); Monocytes Percent Auto 9.5 % (3-14); Neutrophils Absolute Auto 11600 /uL (1500-7000); Neutrophils Percent Auto 79.9 % (50-75); Red Blood Cell Count 3.84 X10^6/uL (4.5-5.9); Red Cell Distribution Width 13.4 % (11.6-14.8); White Blood Cell Count 14.5 X10^3/uL (4.5-11.0)
[2020-07-31 05:01] LABS: Add Manual Diff / Slide Review SLIDE REVIEW
[2020-07-31] MEDS: ACETAMINOPHEN 325 MG TABLET 650 MG PO ×4 (06:18→23:45)
--- NOTE | 2020-07-31 06:22 | PC.NURSE ---
Battery Plate Remover Note-Patient has moderate pain control with epidural going at 8ml/hr + 4ml demand, still requiring additional oxycodone for breakthrough. No nausea or vomitting, abdomen not as distended, bowel sounds active, had 2 loose dark bloody BMs.
[2020-07-31 06:55] LABS: Platelet Count 141 X10^3/uL (150-400); Platelet Estimate Adequate on smear; RBC Morphology Normal Morphology
[2020-07-31] MEDS: ENOXAPARIN 40 MG/0.4 ML SYRINGE SUBCUT (08:35)
[2020-07-31] MEDS: HYDROMORPHONE 1 MG INJ IV ×3 (08:35→22:29)
[2020-07-31] MEDS: SODIUM CHLORIDE 0.9% FLUSH 10 ML IV ×2 (08:36→21:11)
--- NOTE | 2020-07-31 09:48 | PC.NURSE ---
Addendum entered by Kaila Faith R.N. 07/31/20 14:37: Patient tolerated clear liquids for lunch, advanced to fulls for dinner. Patient has had three loose bowel movements this shift, dark red blood noted with each stool. Original Note: Patient reports pain to middle of abdomen and off to the right 8/10, given 1mg IVP dilaudid. Dr Schaffer in to see patient, removed abdominal dressing ciara intact no redness or drainage. Edgardo Bernardo in and gave patient bolus epidural dose. Patient reports pain has improved 5/10. Patient denies nausea, BT+.
--- NOTE | 2020-07-31 10:23 | PM.PNPO.1 ---
Subjective Subjective Date Patient Seen: 07/31/20 Time Patient Seen: 10:23 Interval history: Flatus multiple bowel movements feels some much less distended today than yesterday. No further nausea last emesis was 24 hours ago. His abdominal discomfort at the incision has increased significantly in feels that the epidural is no longer effective. Hungry. ambulated with physical therapy yesterday. Exam Vital Signs (past 8 hours): - 07/31/20 04:00 07/31/20 05:00 07/31/20 08:00 Temperature 96.8 F L 98.1 F Pulse Rate 79 64 Respiratory Rate 16 16 Blood Pressure 123/75 123/83 Pulse Oximetry 96 94 97 07/31/20 10:18 Temperature Pulse Rate Respiratory Rate Blood Pressure Pulse Oximetry 97 Oxygen Delivery Method Room Air Oxygen Flow Rate 0 Narrative Exam Narrative: General adult male alert oriented no acute distress Abdomen soft appropriately tender to palpation midline incision is clean dry intact with ciara, small amount of bruising along the incision line Objective Labs Result Diagrams: 07/31/20 04:25 07/31/20 04:25 Labs: Laboratory Results - last 24 hr 07/31/20 07/31/20 04:25 04:25 WBC 14.5 H RBC 3.84 L Hgb 11.6 L Hct 34.4 L MCV 89.5 MCH 30.3 MCHC 33.8 RDW 13.4 Plt Count 141 L Neut % (Auto) 79.9 H Lymph % (Auto) 10.0 L [place] % (Auto) 9.5 Eos % (Auto) 0.1 L Baso % (Auto) 0.5 Neut # (Auto) 33148 H Lymph # (Auto) 1500 [place] # (Auto) 1400 H Eos # (Auto) 0 Baso # (Auto) 100 Platelet Estimate Adequate on smear RBC Morphology Normal morphology Sodium 135 L Potassium 3.8 Chloride 105 Carbon Dioxide 29 BUN 14 Creatinine 0.88 Estimated GFR > 60.0 BUN/Creatinine Ratio 15.9 Glucose 93 Calcium 8.6 Phosphorus 2.5 Magnesium 1.9 PFSH Medical History Asthma Chest pain (04/15/20) Diverticulitis HLD (hyperlipidemia) HTN (hypertension) Low back pain Pancreatitis Sciatica Surgical History History of esophagogastroduodenoscopy (EGD) History of lumbar spinal fusion (05/06/20) Hx of appendectomy Hx of left knee surgery Social History marital status: household members: spouse and children occupational status: employed Smoking Status: Former smoker alcohol intake: current Assessment & Plan Post-op Postoperative Procedures: Procedures Operation Date: 07/29/20 11:30 Actual Procedures Side Surgeon p Laparoscopic assisted Right Colectomy Not Applicable Rojelio Schaffer MD Postoperative status narrative: 44-year-old man postoperative day 2 status post laparoscopic-assisted right hemicolectomy for benign disease doing well. -remove epidural and Emanuel catheter this afternoon. Start p.o. oxycodone, gabapentin Tylenol and Flexeril for pain control -clear liquid diet advance as tolerated -okay to shower -prophylactic Lovenox and SCDs for VT prophylaxis Anticipate discharge this weekend
--- NOTE | 2020-07-31 10:47 | PT.IPTN ---
Current Diagnoses Other intestinal obstruction unspecified as to partial versus complete obstruction (07/29/20) Surgery Performed Operation Date: 07/29/20 11:30 Actual Procedures p Laparoscopic assisted Right Colectomy(Not Applicable) - Rojelio Schaffer MD Physical Therapy Treatment Note M2 PT-IP Current Condition Start: 07/30/20 12:03 Freq: NEEDED Status: Active Protocol: Document 07/30/20 10:48 AB (Rec: 07/30/20 12:16 AB [id number]) Physical Therapy Current Condition Current Condition Evaluation Date 07/30/20 Treatment Diagnosis s/p R hemicolectomy; difficulty in walking Onset Date 07/29/20 Precautions Abdominal Surgery Precautions Log Roll,Lifting Restrictions, Gait Belt above Incisional Area M3 PT-IP Subjective Start: 07/30/20 12:03 Freq: NEEDED Status: Active Protocol: Document 07/31/20 10:27 KS (Rec: 07/31/20 12:33 KS [id number]) Subjective Physical Therapy Visit Type Type Treatment Note Visit Start Time 10:27 Visit Stop Time 10:47 Total Visit Minutes 20 Number of GENERAL ASSEMBLER Visits 1 Therapy Pain Assessment Pain When Pain Assessed At Rest Pain Present Pain Present Pain Reported Location Abdominal Intensity 5 Scale Used Numeric (0 - 10) Pain Management Techniques Timing of Activity with Medications M4 PT-IP Mobility and Gait Start: 07/30/20 12:03 Freq: NEEDED Status: Active Protocol: Document 07/31/20 10:27 KS (Rec: 07/31/20 12:33 KS [id number]) PT-Bed Mobility Assessment Rolling Type of Rolling Log Rolling Level of Assist Standby Assistance Supine to Sit Supine to Sit Standby Assistance,Bedrails PT-Transfer Assessment Sit to and From Stand Sit to and from Stand Contact Guard Assistance,1 Person Assistance Equipment Transfer Assistive Device Gait Belt,Front Wheeled Walker Orthotic/Prosthetic Devices or Brace: No Comments Mobility Comments Pt in bed upon arrival from therapy, reporting 5/10 pain, initially refusing therapy but agreeable to get up with therapy to use bathroom. Pt logroll and scooted to EOB SBA . CGA for sit<>stand w/ FWW. Pt then ambulated ~10 ft w/ FWW to toilet CGA and cues for FWW management. SBA for stand <>sit on toilet w/ use of grab bars. Pt had bowel movement, RN notified. Pt sit<>stand CGA w/ grab bars and c/o dizziness and sat back down. After ~5 min sitting, dizziness subsided and pt sit< >Stand and ambulated ~10 ft to chair CGA. Pt reported dizziness during ambulation and after sitting back down. Pt positioned comfortably in chair w/ all needs in reach. Gait Assessment Gait Gait Assistance Required: Contact Guard Assist Distance (Feet) 20 Able to Maintain Weight Bearing Status Yes During Gait Assistive Devices Assistive Device Gait Belt,Front Wheeled Walker Orthotic/Prosthetic Devices or Brace: No Gait Deviations General Gait Pattern Antalgic,Decreased Stride Length,Decreased Feet Clearance Factors Limiting Gait Function Factors Limiting Gait Function Decreased Activity Tolerance, Decreased Strength,Pain,Poor Balance Comments Gait Comments Pt ambulated ~20 ft w/ FWW and CGA and cues for FWW management. Pt becomes dizzy upon standing, requiring FWW for balance. Stair Climbing Assessment Comments Stair Climbing Comments not assessed PT-Balance Assessment Sitting Balance and Reactions Static Sitting Balance Ability Good Dynamic Sitting Balance Ability Good Standing Balance and Reactions Static Standing Balance Ability Fair Dynamic Standing Balance Ability Fair Device Used FWW M5 PT-IP Objective Assessments Start: 07/30/20 12:03 Freq: NEEDED Status: Active Protocol: Document 07/30/20 10:48 AB (Rec: 07/30/20 12:16 AB [id number]) Orientation Orientation/Cognition Level of Alertness Alert Orientation Name,Place,Situation Language Function Ability No Deficits Noted Safety Awareness Decreased Safety Awareness Memory Description No Deficits Noted Gross Range of Motion Lower Extremity ROM Assessment Within Functional Limits Strength Lower Extremity Strength Assessment Within Functional Limits Coordination Assessment Gross Coordination Gross Coordination WNL Muscle Tone Muscle Tone WNL Yes M6 PT-IP Treatment Start: 07/30/20 12:03 Freq: NEEDED Status: Active Protocol: Document 07/31/20 10:27 KS (Rec: 07/31/20 12:33 KS [id number]) Physical Therapy Treatment Education Education Provided Precautions,Safety M7 PT-IP Assessment and Plan Start: 07/30/20 12:03 Freq: NEEDED Status: Active Protocol: Document 07/31/20 10:27 KS (Rec: 07/31/20 12:33 KS [id number]) PT Summary Assessment and Plan Potential Rehabilitation Potential Good Status of Condition at Evaluation Evolving Summary Impairments Pain,ROM,Strength,Balance, Coordination,Sensation,Bed Mobility,Transfers,Gait, Activity Tolerance Assessment Summary Pt SBA for logroll and scooting EOB, CGA for transfers and CGA and cues for FWW management during ~20 ft ambulation. Pt c/o dizziness upon standing that resolved after sitting. Patient continues to be limited by pain and dizziness. D/c plan depending on progress, but anticipating pt will be safe to return home with family assistance. Will also need to increase ambulation distance and complete 5 steps R rail SBA. Goals Bed Mobility Goal Independent Transfer Goal Independent,Front Wheeled Walker Gait Goal Independent,Front Wheel Walker Gait Distance 100 Other Goals improve ambulation without AD 200 ft SBA up/down 5 steps R rail SBA Days to Meet Goals 10 Frequency of Treatment Frequency Of Treatment Once a Day Treatment Plan Physical Therapy Treatment Plan Bed Mobility Training,Transfer Training,Gait Training, Therapeutic Exercise,Balance Retraining,Post Op Education, Discharge Planning,Hot or Cold Pack,Neuromuscular Re-ed, Coordination Retraining,Manual Therapy Other Recommendations and Next Treatment ambulation Focus Recommendations To Nursing Amount of Assist Needed 1 Person Assist Discharge Recommendations PT Discharge Recommendations Home with Assistance,Home Health Equipment Needed for Home Before Possibly FWW depending on Discharge progress Transportation Needs at Discharge Private Vehicle
--- NOTE | 2020-07-31 11:33 | DIET.PN ---
Dietary Progress Note RD Note: Pt reports no emesis x24h, felt much better after BM. Pt now on clears c ONS tid. Pt given d/c nutrition paperwork and educated on low fat low fiber diet for next week slowly advancing to high fiber diet. Pts questions answered.
[2020-07-31] MEDS: OXYCODONE IR 5 MG TABLET 15 MG PO (15:45)
[2020-07-31] MEDS: CYCLOBENZAPRINE 10 MG TABLET PO ×2 (15:45→21:10)
--- NOTE | 2020-07-31 16:59 | PC.NURSE ---
Addendum entered by Hailey Sandoval R.N. 07/31/20 19:52: Pt noting no relief from current PO pain medication, but does have relief from IV dilaudid. Dr. Schaffer updated on pt status, new orders placed for PO dilaudid 4mg, will continue to monitor for effectiveness. Pt has had one episode of loose stool that has a dark red (old blood) appearance to it, provider notes that is to be expected and he is not concerned. Plan is for pt to discharge home tomorrow if all goes well tonight, per provider. Asked pt if he wanted to advance diet from Full liquids for breakfast, pt states he wants to continue with current diet at this time. is at bedside, no further needs will continue to monitor. Original Note: Evening shift note: A/Ox3, Dr. Schaffer at bedside, orders to d/c epidural, waite, and IV fluids. 1630 Medicated pt prior to d/c of epidural and had pt use TOPOGRAPHY TECHNICIAN before removal. Pt tolerated removal well, site covered with occlusive dressing. Waite catheter removed, tip intact, pt tolerated well, waiting for first void following d/c. IV fluids discontinued as pt is tolerating PO fluids and food, provider ordered advance diet as tolerated, if pt tolerates full liquid diet, advance to regular diet. Pt educated regarding pain control and oral intake of fluids. Bed low and locked, call light within reach, will continue to monitor.
[2020-07-31] MEDS: GABAPENTIN 300 MG CAPSULE PO (19:29)
[2020-07-31] MEDS: HYDROMORPHONE 2 MG TABLET 4 MG PO ×2 (19:47→23:46)
[2020-08-01] VITALS (7 sets, daily range): BP systolic 146–162; BP diastolic 89–102; PULSE 53–92; RESP 16–20; TEMP 35.8–36.6; O2SAT 94–99
[2020-08-01] MEDS: HYDROMORPHONE 2 MG TABLET 4 MG PO ×6 (04:03→23:07)
[2020-08-01] MEDS: ACETAMINOPHEN 325 MG TABLET 650 MG PO ×4 (04:08→23:08)
[2020-08-01 05:32] LABS: Add Manual Diff / Slide Review NO; Basophils Absolute Auto 100 /uL (0-100); Eosinophils Absolute Auto 200 /uL (0-450); Eosinophils Percent Auto 1.6 % (2-4); Hematocrit 35.7 % (41-53); Hemoglobin 12.1 g/dL (13.5-17.5); Lymphocytes Absolute Auto 2600 /uL (1100-4500); Lymphocytes Percent Auto 22.5 % (25-40); Mean Corpuscular HGB Conc 33.9 % (30-36); Mean Corpuscular Hemoglobin 30.1 PG (26-34); Mean Corpuscular Volume 88.8 fL (80-100); Monocytes Absolute Auto 1200 /uL (0-900); Monocytes Percent Auto 10.7 % (3-14); Neutrophils Absolute Auto 7400 /uL (1500-7000); Neutrophils Percent Auto 64.2 % (50-75); Platelet Count 183 X10^3/uL (150-400); Red Blood Cell Count 4.02 X10^6/uL (4.5-5.9); Red Cell Distribution Width 13.2 % (11.6-14.8); White Blood Cell Count 11.5 X10^3/uL (4.5-11.0)
[2020-08-01 05:39] LABS: BUN Creatinine Ratio 8.5 (6-22); Blood Urea Nitrogen 6 mg/dL (9-20); Calcium 8.9 mg/dL (8.4-10.2); Carbon Dioxide 32 mmol/L (22-32); Chloride 105 mmol/L (98-107); Estimated Glomerular Filt Rate > 60.0 mL/min (>60); Glucose 92 mg/dL (70-100); HEMOLYSIS < 15 (0-50); Phosphorous 3.6 mg/dL (2.5-4.5); Potassium 3.8 mmol/L (3.4-5.1); Sodium 138 mmol/L (137-145)
--- NOTE | 2020-08-01 07:51 | PM.PNPO.1 ---
Subjective Subjective Date Patient Seen: 08/01/20 Time Patient Seen: 07:51 Interval history: Epidural catheter removed yesterday afternoon his abdominal pain has been somewhat difficult to control. We tried 15 mg of oxycodone which was not effective for him 4 mg of p.o. Dilaudid every 4-6 hours has been more effective. No nausea vomiting his diet was advanced from sips of clears to full liquids yesterday continuing to have multiple bowel movements no further nausea or vomiting. He has been ambulating and he has been the urinating after the removal of the Emanuel catheter yesterday without issue. Exam Vital Signs (past 8 hours): - 08/01/20 00:33 08/01/20 04:00 08/01/20 06:10 Temperature 96.6 F L 97.2 F L 96.5 F L Pulse Rate 66 62 67 Respiratory Rate 20 18 16 Blood Pressure 149/96 H 162/89 H 153/98 H Pulse Oximetry 97 99 96 Oxygen Delivery Method Room Air Oxygen Flow Rate 0 Narrative Exam Narrative: General adult male alert oriented no acute distress Chest nonlabored respiration Abdomen appropriately tender to palpation midline incision clean dry intact with ciara. Objective Labs Result Diagrams: 08/01/20 05:00 08/01/20 05:00 Labs: Laboratory Results - last 24 hr 08/01/20 08/01/20 05:00 05:00 WBC 11.5 H RBC 4.02 L Hgb 12.1 L Hct 35.7 L MCV 88.8 MCH 30.1 MCHC 33.9 RDW 13.2 Plt Count 183 Neut % (Auto) 64.2 Lymph % (Auto) 22.5 L [place] % (Auto) 10.7 Eos % (Auto) 1.6 L Baso % (Auto) 1.0 Neut # (Auto) 7400 H Lymph # (Auto) 2600 [place] # (Auto) 1200 H Eos # (Auto) 200 Baso # (Auto) 100 Sodium 138 Potassium 3.8 Chloride 105 Carbon Dioxide 32 BUN 6 L Creatinine 0.71 Estimated GFR > 60.0 BUN/Creatinine Ratio 8.5 Glucose 92 Calcium 8.9 Phosphorus 3.6 D Magnesium 2.0 PFSH Medical History Asthma Chest pain (04/15/20) Diverticulitis HLD (hyperlipidemia) HTN (hypertension) Low back pain Pancreatitis Sciatica Surgical History History of esophagogastroduodenoscopy (EGD) History of lumbar spinal fusion (05/06/20) Hx of appendectomy Hx of left knee surgery Social History marital status: household members: spouse and children occupational status: employed Smoking Status: Former smoker alcohol intake: current Assessment & Plan Post-op Postoperative Procedures: Procedures Operation Date: 07/29/20 11:30 Actual Procedures Side Surgeon p Laparoscopic assisted Right Colectomy Not Applicable Rojelio Schaffer MD Postoperative plan narrative: 44-year-old man postoperative day 3 status post laparoscopic-assisted right hemicolectomy for benign disease doing very well. Afebrile, WBC 11 bowels are functioning. -regular diet -pain control-continue p.o. Dilaudid -VT prophylaxis SCDs and Lovenox -approaching discharge likely tomorrow when pain is adequately controlled
[2020-08-01] MEDS: CYCLOBENZAPRINE 10 MG TABLET PO ×3 (07:52→20:20)
[2020-08-01] MEDS: SODIUM CHLORIDE 0.9% FLUSH 10 ML IV ×3 (09:42→20:20)
[2020-08-01] MEDS: GABAPENTIN 300 MG CAPSULE PO (09:42)
--- NOTE | 2020-08-01 11:35 | PC.NURSE ---
Am shift Pt continues to have better pain control but describing sharp, gaslike pain. Encouraging ambulation. Pt is up in halls, walking laps around nursing station. Pain continued climbing, Pt eventually requesting IV break through dilaudid, while flushing IV, lost site. Pt elected to take Vistaril IM x1, not effective.
[2020-08-01] MEDS: ENOXAPARIN 40 MG/0.4 ML SYRINGE SUBCUT (12:49)
[2020-08-01] MEDS: HYDROMORPHONE 1 MG INJ IV ×3 (14:10→21:33)
--- NOTE | 2020-08-01 14:18 | PC.NURSE ---
AFTERNOON NOTE: PATIENT SLEPT FROM NOON TO APPROX 1300. TRANSF TO RM 223 FROM 227 UPON AWAKENING. PATIENT ABLE TO WALK TO RM. PATIENT WOULD LIKE IV RESTARTED FOR IV DILAUDID FOR BTP. OBTAINED NEW IV SITE L UPPER ARM 22G. PATIENT REPORTS PAIN 7/10, GIVEN IVP DILAUDID. PATIENT DENIES NAUSEA BUT REPORTS NOT PASSING FLATUS TODAY, NO BM TODAY. STATES HE IS FEELING LOTS OF GRUMBLING IN ABD, BUT NOTHING PASSING THROUGH. ENCOURAGED TO AMBULATE IN HALLS WITH RATIONAL TO INCREASE BOWEL MOTILITY TO RELIEVE GAS PAIN. PATIENT AGREEABLE TO SAME.
--- NOTE | 2020-08-01 16:04 | PT.IPTN ---
Current Diagnoses Other intestinal obstruction unspecified as to partial versus complete obstruction (07/29/20) Surgery Performed Operation Date: 07/29/20 11:30 Actual Procedures p Laparoscopic assisted Right Colectomy(Not Applicable) - Rojelio Schaffer MD Physical Therapy Treatment Note M2 PT-IP Current Condition Start: 07/30/20 12:03 Freq: NEEDED Status: Active Protocol: Document 07/30/20 10:48 AB (Rec: 07/30/20 12:16 AB [id number]) Physical Therapy Current Condition Current Condition Evaluation Date 07/30/20 Treatment Diagnosis s/p R hemicolectomy; difficulty in walking Onset Date 07/29/20 Precautions Abdominal Surgery Precautions Log Roll,Lifting Restrictions, Gait Belt above Incisional Area M3 PT-IP Subjective Start: 07/30/20 12:03 Freq: NEEDED Status: Active Protocol: Document 08/01/20 15:39 SP (Rec: 08/01/20 18:52 SP [id number]) Subjective Physical Therapy Visit Type Type Treatment Note Visit Start Time 15:39 Visit Stop Time 16:04 Total Visit Minutes 25 Number of SALES CLERK SUPERVISOR Visits 2 Physical Therapy Visit Comments Patient Comments Pt willing to work with therapy, I have been walking around the nursing station using my walker. I can try the stairs if want to. Patient Goals Return home with family to assist him. Therapy Pain Assessment Pain When Pain Assessed During Mobility Pain Present Pain Present Pain Reported Location Abdominal Intensity 3 Scale Used Numeric (0 - 10) Description Pressure,Tightness,With Movement Pain Management Techniques Timing of Activity with Medications M4 PT-IP Mobility and Gait Start: 07/30/20 12:03 Freq: NEEDED Status: Active Protocol: Document 08/01/20 15:39 SP (Rec: 08/01/20 18:52 SP [id number]) PT-Bed Mobility Assessment Rolling Type of Rolling Log Rolling Level of Assist Independent Supine to Sit Supine to Sit Independent Sit to Supine Sit to Supine Independent Scooting Scooting to Edge of Bed Independent PT-Transfer Assessment Sit to and From Stand Sit to and from Stand Independent,Use of Upper Extremities Equipment Transfer Assistive Device Gait Belt,Front Wheeled Walker Orthotic/Prosthetic Devices or Brace: No Transfers Transfer Destination Bed,Wheelchair Transfer Technique Pt ambulated using FWW. Transfer Ability Level of Assist Independent,Use of Upper Extremities Comments Mobility Comments Pt had good recall to all precautions. HOB flat LR to L< >L sidelying<>sitting<>stand I with good mechanics and within precautions. Ambulated further into hallway using FWW initially then no AD down to stairs, completed and back wc follow secondary to decreased strengthen/ activity tolerance , 1 stop stand rest approx 200ft and 1 seated rest in w/c after in using stairs. Pt reported tightness in abdomen during ambulation approx 50 ft with no AD with noted lateral wt shift deviations with self corrections SBA- CGA via gait belt so provided FWW for self support. Pt ambulated rest of distance back to room approx 250 ft using FWW SBA. Pt returned to bed good mechanics . SALES CLERK SUPERVISOR recommended continued use of FWW at home for support due to decreased strength and improve energy conservation with pt in agreement. Pt stated will be able to borrow a FWW to use at home. Pt is ok to return home with family to assist him when medically cleared. SALES CLERK SUPERVISOR stated is ok to by I in room with fWW, SBA in hallway further distances using FWW with agreement. Gait Assessment Gait Gait Assistance Required: Standby Assistance Distance (Feet) 250 Able to Maintain Weight Bearing Status Yes During Gait Assistive Devices Assistive Device None,Gait Belt,Front Wheeled Walker Orthotic/Prosthetic Devices or Brace: No Gait Deviations General Gait Pattern Antalgic,Decreased Feet Clearance Factors Limiting Gait Function Factors Limiting Gait Function Decreased Activity Tolerance, Decreased Strength,Pain,Poor Balance Comments Gait Comments See mobility comments details. Stair Climbing Assessment Evaluation Level of Assist On Stairs Standby Assistance Devices Stair Climbing Assistive Devices Right Railing Technique/Endurance Stair Climbing Direction Ascend and Descend Stair Climbing Technique Step Over Step,Step to Step Number of Steps Climbed 3 Stair Climbing Set # Repetitions (reps) 2 Comments Stair Climbing Comments step to patterning 1 set, step over step 2nd set R HR, SBA. Completed and cleared by PT stand point with stair mgt. PT-Balance Assessment Sitting Balance and Reactions Static Sitting Balance Ability Normal Dynamic Sitting Balance Ability Normal Standing Balance and Reactions Static Standing Balance Ability Good Dynamic Standing Balance Ability Good Device Used FWW, Fair w/ no AD Comments Other Balance Tests/Deviations/Treatment See mobility comments for : balance gait no AD, fair. M5 PT-IP Objective Assessments Start: 07/30/20 12:03 Freq: NEEDED Status: Active Protocol: Document 07/30/20 10:48 AB (Rec: 07/30/20 12:16 AB [id number]) Orientation Orientation/Cognition Level of Alertness Alert Orientation Name,Place,Situation Language Function Ability No Deficits Noted Safety Awareness Decreased Safety Awareness Memory Description No Deficits Noted Gross Range of Motion Lower Extremity ROM Assessment Within Functional Limits Strength Lower Extremity Strength Assessment Within Functional Limits Coordination Assessment Gross Coordination Gross Coordination WNL Muscle Tone Muscle Tone WNL Yes M6 PT-IP Treatment Start: 07/30/20 12:03 Freq: NEEDED Status: Active Protocol: Document 08/01/20 15:39 SP (Rec: 08/01/20 18:52 SP [id number]) Physical Therapy Treatment Education Education Provided Precautions,Safety M7 PT-IP Assessment and Plan Start: 07/30/20 12:03 Freq: NEEDED Status: Active Protocol: Document 08/01/20 15:39 SP (Rec: 08/01/20 18:52 SP [id number]) PT Summary Assessment and Plan Potential Rehabilitation Potential Good Status of Condition at Evaluation Evolving Summary Impairments Pain,ROM,Strength,Balance, Coordination,Sensation,Bed Mobility,Transfers,Gait, Activity Tolerance Progress Towards Goals Progressing Toward Goals,Slow Progress due to Activity Tolerance Assessment Summary Pt I for logroll and scooting EOB, I for transfers and use with FWW in room management, SBA longer distances using fWW in hallway due to decreased activity tolerance. Pt would benefit from further acute PT for further assessment gait LRAD: SPC/ no AD. Pt is safe to return home with family assistance using FWW when medically cleared. Goals Bed Mobility Goal Independent Transfer Goal Independent,Front Wheeled Walker Gait Goal Independent,Front Wheel Walker Gait Distance 100 Other Goals improve ambulation without AD 200 ft SBA up/down 5 steps R rail SBA Days to Meet Goals 10 Frequency of Treatment Frequency Of Treatment Once a Day Treatment Plan Physical Therapy Treatment Plan Bed Mobility Training,Transfer Training,Gait Training, Therapeutic Exercise,Balance Retraining,Post Op Education, Discharge Planning,Hot or Cold Pack,Neuromuscular Re-ed, Coordination Retraining,Manual Therapy Other Recommendations and Next Treatment ambulation without AD if Focus tolerated, challenge balance activities. Recommendations To Nursing Amount of Assist Needed Independent,Standby Assistance Discharge Recommendations PT Discharge Recommendations Home with Assistance,Home Health Equipment Needed for Home Before Pt can acquire FWW at [place]. Discharge Transportation Needs at Discharge Private Vehicle
[2020-08-02 00:17] VITALS: BP 147/104; PULSE 67; RESP 16; TEMP 36.2; O2SAT 97
[2020-08-02 04:00] VITALS: BP 125/93; PULSE 64; RESP 18; TEMP 35.6; O2SAT 97
[2020-08-02] MEDS: HYDROMORPHONE 2 MG TABLET 4 MG PO ×5 (04:10→20:39)
[2020-08-02] MEDS: ACETAMINOPHEN 325 MG TABLET 650 MG PO ×4 (06:08→23:36)
[2020-08-02 07:00] VITALS: BP 147/104; PULSE 82; RESP 18; TEMP 36.6; O2SAT 98
[2020-08-02] MEDS: AMLODIPINE 5 MG TABLET 10 MG PO (07:57)
[2020-08-02] MEDS: CYCLOBENZAPRINE 10 MG TABLET PO ×3 (07:57→20:40)
[2020-08-02] MEDS: ENOXAPARIN 40 MG/0.4 ML SYRINGE SUBCUT (07:58)
[2020-08-02] MEDS: SODIUM CHLORIDE 0.9% FLUSH 10 ML IV (09:58)
--- NOTE | 2020-08-02 10:20 | PT.IPTN ---
Current Diagnoses Other intestinal obstruction unspecified as to partial versus complete obstruction (07/29/20) Surgery Performed Operation Date: 07/29/20 11:30 Actual Procedures p Laparoscopic assisted Right Colectomy(Not Applicable) - Rojelio Schaffer MD Physical Therapy Treatment Note M2 PT-IP Current Condition Start: 07/30/20 12:03 Freq: NEEDED Status: Active Protocol: Document 07/30/20 10:48 AB (Rec: 07/30/20 12:16 AB [email or web address]) Physical Therapy Current Condition Current Condition Evaluation Date 07/30/20 Treatment Diagnosis s/p R hemicolectomy; difficulty in walking Onset Date 07/29/20 Precautions Abdominal Surgery Precautions Log Roll,Lifting Restrictions, Gait Belt above Incisional Area M3 PT-IP Subjective Start: 07/30/20 12:03 Freq: NEEDED Status: Active Protocol: Document 08/02/20 10:10 SP (Rec: 08/02/20 10:54 SP [id number]) Subjective Physical Therapy Visit Type Type Treatment Note Visit Start Time 10:10 Visit Stop Time 10:20 Total Visit Minutes 10 Notes in room when arrived, provided SBA via gait belt during mobility. Number of GENERAL INSPECTOR Visits 3 Physical Therapy Visit Comments Patient Comments Pt willing to work with therapy. Patient Goals Return home with family to assist him. Therapy Pain Assessment Pain When Pain Assessed During Mobility Pain Present Pain Present Pain Reported Location Abdominal Intensity 3 Scale Used Numeric (0 - 10) Description Cramping,With Movement Pain Behaviors Facial Grimacing,Guarding, Holding Area Pain Management Techniques Distraction,Re-positioning, Timing of Activity with Medications M4 PT-IP Mobility and Gait Start: 07/30/20 12:03 Freq: NEEDED Status: Active Protocol: Document 08/02/20 10:10 SP (Rec: 08/02/20 10:54 SP [id number]) PT-Bed Mobility Assessment Rolling Type of Rolling Log Rolling Level of Assist Independent Supine to Sit Supine to Sit Independent Sit to Supine Sit to Supine Independent Scooting Scooting to Edge of Bed Independent PT-Transfer Assessment Sit to and From Stand Sit to and from Stand Independent,Use of Upper Extremities Equipment Transfer Assistive Device Gait Belt,Straight Cane,Front Wheeled Walker Orthotic/Prosthetic Devices or Brace: No Transfers Transfer Destination Bed,Toilet Transfer Technique Pt ambulated using FWW. Transfer Ability Level of Assist Independent,Use of Upper Extremities Comments Mobility Comments Pt stated drank alot of fluids lately and now is bloated and having some abdominal cramping but wanted to assess use of SPC vs. FWW this tx. Supine<> LR R<> sit, sit<> stand I. Ambulated short to bathroom>sink>using FWW I short distances. Ambulated into hallway assessing use of SPC in RUE step over step, noted over wt shift and self corrections x4 using SPC SBA- CGA, 4 stopped brief rests due to abdominal cramping w/ contact on wall for support as needed for recover and cuing x1 for slow controlled breathing and education on slow controlled pace stepping, approx 436 ft total. Pt returned to bed. GENERAL INSPECTOR reviewed LE ther ex can perform as tolerated for improvement in circulation: ankle pumps, glut /quad sets, heel slides very slow with abdominal activation to decrease over use with good demonstration and tolerance, few reps each. Pt was reclined in bed with call light and all needs within reach, in room. Gait Assessment Gait Gait Assistance Required: Standby Assistance Distance (Feet) 436 Able to Maintain Weight Bearing Status Yes During Gait Assistive Devices Assistive Device Gait Belt,Straight Cane,Front Wheeled Walker Orthotic/Prosthetic Devices or Brace: No Gait Deviations General Gait Pattern Antalgic,Lateral Trunk Lean Factors Limiting Gait Function Factors Limiting Gait Function Decreased Activity Tolerance, Decreased Strength,Pain,Poor Balance Comments Gait Comments See mobility comments. Stair Climbing Assessment Comments Stair Climbing Comments Did not perform today as pt wanted due to abdominal cramping on way to stairs. PT-Balance Assessment Sitting Balance and Reactions Static Sitting Balance Ability Normal Dynamic Sitting Balance Ability Normal Standing Balance and Reactions Static Standing Balance Ability Good Dynamic Standing Balance Ability Good Device Used FWW, Fair w/ SPC Comments Other Balance Tests/Deviations/Treatment See mobility comments for : details. M5 PT-IP Objective Assessments Start: 07/30/20 12:03 Freq: NEEDED Status: Active Protocol: Document 07/30/20 10:48 AB (Rec: 07/30/20 12:16 AB [id number]) Orientation Orientation/Cognition Level of Alertness Alert Orientation Name,Place,Situation Language Function Ability No Deficits Noted Safety Awareness Decreased Safety Awareness Memory Description No Deficits Noted Gross Range of Motion Lower Extremity ROM Assessment Within Functional Limits Strength Lower Extremity Strength Assessment Within Functional Limits Coordination Assessment Gross Coordination Gross Coordination WNL Muscle Tone Muscle Tone WNL Yes M6 PT-IP Treatment Start: 07/30/20 12:03 Freq: NEEDED Status: Active Protocol: Document 08/02/20 10:10 SP (Rec: 08/02/20 10:54 SP [id number]) Physical Therapy Treatment Exercises Exercises Ankle Pumps,Gluteal Sets,Quad Sets,Heel Slides,Seated Knee Flexion/Extension Education Education Provided Precautions,Safety M7 PT-IP Assessment and Plan Start: 07/30/20 12:03 Freq: NEEDED Status: Active Protocol: Document 08/02/20 10:10 SP (Rec: 08/02/20 10:54 SP [id number]) PT Summary Assessment and Plan Potential Rehabilitation Potential Good Status of Condition at Evaluation Evolving Summary Impairments Pain,ROM,Strength,Balance, Coordination,Sensation,Bed Mobility,Transfers,Gait, Activity Tolerance Progress Towards Goals Progressing Toward Goals,Slow Progress due to Medical Issues ,Slow Progress due to Activity Tolerance Assessment Summary Pt I in bed mobility, transfers and short distance gait using FWW in room, SBA longer distances using fWW in hallway due to decreased activity tolerance and report of abdominal cramping with also statment of dizziness last night when out walking. Pt would benefit from further acute PT for further assessment gait LRAD: SPC/ no AD if tolerated and dynamic balance. Pt is not back to his PLOF of ambulation with no AD and could benefit from further acute PT to improve dynamic balance. Will continue to assess progress. Goals Bed Mobility Goal Independent Transfer Goal Independent,Front Wheeled Walker Gait Goal Independent,Front Wheel Walker Gait Distance 100 Other Goals improve ambulation without AD 200 ft SBA up/down 5 steps R rail SBA Days to Meet Goals 10 Frequency of Treatment Frequency Of Treatment Once a Day Treatment Plan Physical Therapy Treatment Plan Bed Mobility Training,Transfer Training,Gait Training, Therapeutic Exercise,Balance Retraining,Post Op Education, Discharge Planning,Hot or Cold Pack,Neuromuscular Re-ed, Coordination Retraining,Manual Therapy Other Recommendations and Next Treatment ambulation SPC/ no AD if Focus tolerated, dynamic balance activities. Recommendations To Nursing Amount of Assist Needed Standby Assistance Discharge Recommendations PT Discharge Recommendations Home with Assistance,Home Health Equipment Needed for Home Before Pt can acquire FWW at [place]. Discharge Transportation Needs at Discharge Private Vehicle
[2020-08-02] MEDS: HYDROMORPHONE 1 MG INJ IV ×4 (10:37→23:34)
[2020-08-02] MEDS: SODIUM CHLORIDE 0.9% 1,000 ML 80 ML IV (11:27)
[2020-08-02] MEDS: METOCLOPRAMIDE 10 MG/2 ML INJ IV ×2 (11:27→19:15)
[2020-08-02 11:37] VITALS: BP 141/103; PULSE 78; RESP 19; TEMP 37.2; O2SAT 96
--- NOTE | 2020-08-02 11:58 | PM.PN.1 ---
Subjective Subjective Date Patient Seen: 08/02/20 Time Patient Seen: 11:58 Interval history: Pt c/o bloating and has passed minimal gas and no stool. He is belching and does not feel he can eat solid food. His pain is well controlled with PO pain meds, and he has been ambulating frequently. Exam Vital Signs (past 8 hours): - 08/02/20 04:00 08/02/20 07:00 08/02/20 11:37 Temperature 96.0 F L 97.8 F 99.0 F Pulse Rate 64 82 78 Respiratory Rate 18 18 19 Blood Pressure 125/93 H 147/104 H 141/103 H Pulse Oximetry 97 98 96 Oxygen Delivery Method Room Air Oxygen Flow Rate 0 Narrative Exam Narrative: GENERAL: Alert, mild distress due to bloating CARDIOVASCULAR: Regular rate. No pedal edema. RESPIRATORY: Non-tachypneic, breathing comfortably on room air. GASTROINTESTINAL: Abdomen soft, mildly distended, appropriately tender to palpation for postop, incision is clean dry and intact with no signs of cellulitis or drainage MUSCULOSKELETAL: Equal tone and mass bilaterally. SKIN: Warm, dry, soft, appropriate color for ethnicity. No other lesions, rashes, or wounds. Objective Labs Result Diagrams: 08/01/20 05:00 08/01/20 05:00 [facility] Medical History Asthma Chest pain (04/15/20) Diverticulitis HLD (hyperlipidemia) HTN (hypertension) Low back pain Pancreatitis Sciatica Surgical History History of esophagogastroduodenoscopy (EGD) History of lumbar spinal fusion (05/06/20) Hx of appendectomy Hx of left knee surgery Social History marital status: household members: spouse and children occupational status: employed Smoking Status: Former smoker alcohol intake: current Assessment & Plan Assessment and plan (1) Status post colon resection: Status: Acute Assessment & Plan narrative: This is a 44-year-old man postop day 4 from right hemicolectomy. He has had partial return of bowel function, but is feeling very bloated and passing minimal gas at this point. We will slow down the advancement of his diet, put him back on some IV fluids, add some Reglan, have him continue ambulating, and consider discharge once he is tolerating p.o. and passing things through with more dependent bili deep. Plan: IV fluids, full liquid diet as tolerated, ambulate frequently, Reglan COVID-19 COVID-19 status: Negative Result date/Date tested (Pos, Neg/Pending): 07/28/20 Time Spent With Patient Time with patient: 15-24 minutes Quality VTE Deep Vein Thrombosis/Pulmonary Embolism Present on Admission: No
[2020-08-02 13:19] LABS: BUN Creatinine Ratio 8.7 (6-22); Blood Urea Nitrogen 6 mg/dL (9-20); Calcium 9.1 mg/dL (8.4-10.2); Carbon Dioxide 29 mmol/L (22-32); Chloride 101 mmol/L (98-107); Estimated Glomerular Filt Rate > 60.0 mL/min (>60); Glucose 100 mg/dL (70-100); HEMOLYSIS 17 (0-50); Potassium 3.6 mmol/L (3.4-5.1); Sodium 135 mmol/L (137-145)
[2020-08-02 13:32] LABS: Magnesium 2.1 mg/dL (1.6-2.3)
--- NOTE | 2020-08-02 13:51 | PC.NURSE ---
Day shift: Ok for Pt to shower per Dr Hampton. Pat dry and don't scrub the incisions.
--- NOTE | 2020-08-02 14:33 | CM.DPC ---
DCP: continued: Case received, EMR reviewed and discussed in Team Rounds. Pt is recovering from R hemicolectomy. He is ambulating frequently as part of his POC and working with PT on best assistive device for the recovery. PT Luzma reports today that pt expresses to her that the use of the FWW is helpful at this point. He has one at home and plans to use it for a while as he recovers. Pt has still not had BM and is not tolerating solid foods. Minimal flatus. Dr. Hampton has added IV fluids, adjusted his diet and plans for a d/c home once pt is tolerating oral intake and his GI function has returned. has been at bedside. P: remains: home when stable for same.
[2020-08-02 15:20] VITALS: BP 142/86; PULSE 83; RESP 20; TEMP 36.7; O2SAT 97
--- NOTE | 2020-08-02 19:03 | PC.NURSE ---
Pt L upper arm IV leaking and was infiltrated. New IV placed in R forearm, pt tolerated well and IV cite infusing with NS @ 80mL/hr.
[2020-08-02 20:00] VITALS: BP 143/94; PULSE 78; RESP 18; TEMP 36.6; O2SAT 97
[2020-08-02] MEDS: hydrOXYzine 50 MG/ML INJ 25 MG IM (23:34)
[2020-08-03 00:20] VITALS: BP 150/81; PULSE 69; RESP 16; TEMP 36.2; O2SAT 97
[2020-08-03] MEDS: SODIUM CHLORIDE 0.9% 1,000 ML 80 ML IV (01:45)
[2020-08-03] MEDS: HYDROMORPHONE 2 MG TABLET 4 MG PO ×3 (01:46→11:00)
[2020-08-03] MEDS: METOCLOPRAMIDE 10 MG/2 ML INJ IV ×2 (02:45→10:59)
[2020-08-03 04:47] VITALS: BP 123/77; PULSE 63; RESP 16; TEMP 35.8; O2SAT 100
[2020-08-03] MEDS: ACETAMINOPHEN 325 MG TABLET 650 MG PO ×2 (06:45→11:00)
[2020-08-03] MEDS: BISACODYL 10 MG SUPP PR (06:58)
[2020-08-03 07:40] VITALS: BP 142/87; PULSE 71; RESP 16; TEMP 36.5; O2SAT 99
[2020-08-03] MEDS: CYCLOBENZAPRINE 10 MG TABLET PO (08:55)
[2020-08-03] MEDS: ENOXAPARIN 40 MG/0.4 ML SYRINGE SUBCUT (08:55)
[2020-08-03] MEDS: AMLODIPINE 5 MG TABLET 10 MG PO (08:55)
--- NOTE | 2020-08-03 09:09 | PM.DS.1 ---
History of Present Illness History of Present Illness Date Patient Seen: 08/05/20 Time Patient Seen: 06:27 Chief complaint: INPT Narrative: Patient with a colonic stricture of the transverse colon near the hepatic flexure seen day prior to colonic resection. He has had 6+ episodes of diverticulitis treated with antibiotics over the years and has a persistent epigastric pain. He has lost over 30 lbs over the past 2 months associated with abdominal bloating and pain CT demonstrates concentric thickening of the transverse colon over a span of 7 cm. Colonoscopy 2 weeks ago demonstrated a stricturing however the scope could pass through with difficulty. Biopsy was taken no evidence of malignancy. No acute changes in health since last seen. Continues to have persistent pain and bloating staying mostly on a liquid diet. Discharge Providers Provider Date of admission: 07/29/20 09:59 Discharge Date: 08/03/20 Consults: 07/28/20 12:34 Consult to Discharge Planning Routine Comment: 07/29/20 16:00 Consult to Discharge Planning Routine Comment: Consult to Occupational Therapy Evaluate & Treat Comment: Physician Instructions: Evaluate and treat Consult to Physical Therapy Evaluate & Treat Comment: Physician Instructions: Evaluate and Treat Discharge provider: Veronica Hampton MD Summary Hospital Course Discharge Diagnosis: Colon stricture Hospital Course: Pt had right hemicolectomy for stricture. He had gradual return of bowel function and was discharged home on post op day 5 passing flatus, tolerating full liquid diet, with pain controlled on PO pain meds. Status at Discharge Cognitive/behavioral status at discharge: oriented Functional status at discharge: independent ambulation Overall status at discharge: patient is progressing back to baseline Time Spent with Patient Time spent: Greater than 30 minutes Exam Vital Signs (past 8 hours): - 08/03/20 04:47 Temperature 96.5 F L Pulse Rate 63 Respiratory Rate 16 Blood Pressure 123/77 Pulse Oximetry 100 Oxygen Delivery Method Room Air Oxygen Flow Rate 0 Narrative Exam Narrative: GENERAL: Alert, oriented, comfortable CARDIOVASCULAR: Regular rate. No pedal edema. RESPIRATORY: Non-tachypneic, breathing comfortably on room air. GASTROINTESTINAL: Abdomen soft, appropriately tender to palpation for postop, incision is clean dry and intact with no signs of cellulitis or drainage MUSCULOSKELETAL: Equal tone and mass bilaterally. SKIN: Warm, dry, soft, appropriate color for ethnicity. No other lesions, rashes, or wounds. Objective Labs Result Diagrams: 08/01/20 05:00 08/02/20 12:55 Labs: Laboratory Results - last 24 hr 08/02/20 08/02/20 12:55 12:55 Sodium 135 L Potassium 3.6 Chloride 101 Carbon Dioxide 29 BUN 6 L Creatinine 0.69 Estimated GFR > 60.0 BUN/Creatinine Ratio 8.7 Glucose 100 Calcium 9.1 Magnesium 2.1 PFSH Medical History Asthma Chest pain (04/15/20) Diverticulitis HLD (hyperlipidemia) HTN (hypertension) Low back pain Pancreatitis Sciatica Surgical History History of esophagogastroduodenoscopy (EGD) History of lumbar spinal fusion (05/06/20) Hx of appendectomy Hx of left knee surgery Social History marital status: household members: spouse and children occupational status: employed Smoking Status: Former smoker alcohol intake: current Discharge Assessment & Plan Assessment and Plan Assessment: 44 yo man POD#5 s/p right hemicolectomy, with evidence of returning bowel function. Tolerating PO, ambulating well. Plan of Treatment: Discaharge home with PO pain med, PRN reglan, and slowly advance diet at home. Follow up next week with Dr. Schaffer. Abdominal binder for home for patient comfort. Discharge Plan Discharge Plan Patient Disposition: Home Provider Discharge Comment: OK to leave wound open to air or may place clean dry gauze daily over the incision until ciara are removed. Consider using a fiber supplement such as Metamucil, Benefiber, or psyllium husk. Use 2 tspn in 8 oz water once daily to start. You may increase or decrease the amount and frequency as needed. The goal is to have a soft, formed, stool without straining, and without having to sit on the toilet for more than 2 minutes to have a bowel movement. Reglan (Metaclopromide) is used to treat nausea and slow movement of the digestive system. If you feel nauseated or that your gut is not moving forward (bloating, belching, nausea) you may take it as needed up to three times per day. If you feel constipated and Metamucil doesn't help, you may take a stool softener or laxative such as Docusate or Miralax which can be purchased over the counter in the pharmacy. Discharge orders & Medications Prescriptions: New acetaminophen [Tylenol] 325 mg capsule 650 mg PO QID PRN (Reason: pain) Qty: 60 RF: 0 hydromorphone [Dilaudid] 4 mg tablet 4 mg PO Q6H PRN (Reason: post operative pain) Qty: 20 RF: 0 metoclopramide HCl [Reglan] 10 mg tablet 10 mg PO Q8HR PRN (Reason: nausea and vomiting, bloating, belching) Qty: 20 RF: 0 Continued aspirin 81 mg Tablet,Delayed Release (Dr/Ec) 81 mg PO DAILY RF: 0 amlodipine [Norvasc] 10 mg Tablet 10 mg PO DAILY RF: 0 lisinopril 40 mg Tablet 40 mg PO DAILY RF: 0 Discontinued erythromycin 500 mg tablet See Rx Instructions PO TID Qty: 6 RF: 0 neomycin 500 mg tablet 1 g PO TID Qty: 6 RF: 0 Follow up/Referrals: Rojelio Schaffer MD [Physician] - 2 Weeks (Will need staple removal) Diet/Activity/Treatments Diet: Regular Activity: No lifting >20 lbs x 6 weeks. Walking only for exercise for [address] while taking narcotics. Skin/Wound/Dressing Care Skin care: Ok to shower, do not submerge the wound in water. Report to your healthcare provider any signs of infection, such as:: chills, fever, increased pain, unusual drainage and unusual redness Visit Report/Discharge Packet Instructions: Low-Fiber/Low-Residue Diet, DI for Colectomy, DI for Laparoscopy, DI for Prescription Opioid Use, [facility]: Wound Care Stand Alone Forms: Surgery Discharge Quality VTE Deep Vein Thrombosis/Pulmonary Embolism Present on Admission: No
--- NOTE | 2020-08-03 11:33 | PC.NURSE ---
Day shift: Pt had shower at approx 1115 and after shower this hand sign writer called into room because Pt reports bulging in his lower ABD. Unpon inspection Pts lower ABD does have a bulging out appearance that was not present this AM. Pt does report pain but no different than the normal pain he has been having post-op. BARRERA Manzano palpated the area and reports that it feels like fluid and not any parts of the bowel. Dr Hampton will be called and informed of this new finding at this time.
[2020-08-03 11:55] VITALS: BP 149/93; PULSE 86; RESP 16; TEMP 36.3
--- NOTE | 2020-08-03 12:59 | PC.NURSE ---
Day shift: Per telephone conversation w/ Dr Hampton it is likely fluid in/at Pt ABD/umbilicus and an ABD binder was ordered and applied. Pt tolerated well. Remains ok for Pt to d/c home today. Pt stated that he feels much better w/ the ABD binder in place and it is really helping.
--- NOTE | 2020-08-03 13:49 | PC.NURSE ---
Day shift: Paperwork signed and all questions answered. Pt has all personal belongings. MD scripts sent to Pt's pharmacy by . Pt tolerating ABD binder. Taken to car in by KENRICK Dickens and Pt's spouse is driving him home to [facility]. Pt reports having 2 loose BM's today. He also had a shower.
--- NOTE | 2020-08-03 14:30 | PT-IP ANOTE ---
Pt d/c'd before tx.
== END 2020-08-03 13:52 | disposition home or self-care (01) | DRG 331 ==
LOC: AC 11:37 → ICU 07-30 12:44 → AC 08-01 11:57
PROVIDERS: Surgery; Admitting Provider Surgery; Referring Provider Surgery; Visit Provider Surgery
PROC: 0DTE0ZZ Resection of Large Intestine, Open Approach (ICD-10-PCS; principal; 2020-07-29 11:30)
DX: K56.699 Other intestinal obstruction unspecified as to partial versus complete obstruction (principal); J45.909 Unspecified asthma, uncomplicated; I10 Essential (primary) hypertension; E78.5 Hyperlipidemia, unspecified
CPT/HCPCS: 36415; 44204; 80048; 82962; 83735; 84100; 85025; 97116; 97162; 97530; J1100; J1170; J1650; J2250; J2405; J2543; J2704; J2765; J3010; J3410

== ENCOUNTER → 2020-08-26 10:49 | Outpatient (CLI) | payer OTHER, SELFPAY ==
[2020-07-29 16:45] VITALS: BMI 32.9
--- NOTE | 2020-08-26 10:50 | DI.CT.S_ITS ---
PROCEDURE: CT ABDOMEN PELVIS W CON INDICATIONS: r/o abdominal wall hematoma TECHNIQUE: After the administration of intravenous contrast, 5 mm thick sections acquired from the diaphragm to the symphysis. 5 mm coronal and sagittal reformats were acquired. For radiation dose reduction, the following was used: automated exposure control, adjustment of mA and/or kV according to patient size. COMPARISON: None. FINDINGS: There is a low-density rim fluid collection in the anterior abdominal wall just overlying the rectus abdominus at midline. This measures approximately 6.7 by 4.4 cm maximum axial dimension and spans 10 cm craniocaudal extent. The collection appears to be within the abdominal wall subcutaneous fat incision plane. There is no extension into abdominal wall musculature or peritoneal cavity. The postsurgical changes of bowel resection and anastomosis. No free air or free fluid in the abdomen. There is a small amount of inflammatory fat stranding surrounding the anastomosis and immediately adjacent bowel. Colonic diverticulosis and moderate volume of formed stool throughout the colon are noted. No abnormally dilated loop of bowel. The liver, spleen, gallbladder, pancreas, adrenal glands, and kidneys demonstrate a normal CT appearance. Urinary bladder is within normal limits. No free pelvic fluid. No threshold enlarged pelvic or inguinal lymph node. Nonaneurysmal abdominal aorta. No threshold enlarged retroperitoneal lymph node. Included portions of the lung bases are clear. IMPRESSION: Fluid collection which appears to be within the incision plane in the anterior midline abdominal subcutaneous fat, consistent with a seroma although a low-density hematoma would appear similar. No significant rim enhancement or irregularity to the collection to indicate this represents an abscess. Dictated by: Tanmay Crenshaw M.D. on 08/26/2020 at 13:10 Approved by: Tanmay Crenshaw M.D. on 08/26/2020 at 13:13
== END ==
PROVIDERS: Referring Provider Surgery; Visit Provider Surgery
DX: K57.90 Diverticulosis of intestine, part unspecified, without perforation or abscess without bleeding (principal); Z98.0 Intestinal bypass and anastomosis status; Z90.49 Acquired absence of other specified parts of digestive tract
CPT/HCPCS: 74177; Q9967

== ENCOUNTER → 2021-01-12 10:20 | Outpatient (CLI) | payer OTHER, SELFPAY ==
[2021-01-01 11:38] VITALS: BMI 32.9
[2021-01-13 14:36] LABS: COVID19 -Nasal RAPID POSITIVE (Negative)
== END ==
PROVIDERS: Referring Provider Surgery; Visit Provider Surgery
DX: U07.1 COVID-19 (principal)
CPT/HCPCS: 87635; C9803

== ENCOUNTER → 2021-02-02 10:17 | Outpatient (CLI) | payer OTHER, SELFPAY ==
[2021-01-01 11:38] VITALS: BMI 32.9
[2021-02-02 11:09] LABS: COVID19 -Nasal RAPID Negative (Negative)
== END ==
PROVIDERS: Visit Provider Surgery
DX: Z20.822 Contact with and (suspected) exposure to COVID-19 (principal)
CPT/HCPCS: 87635; C9803

== ENCOUNTER 2021-02-03 12:16 | Day surgery (SDC) | payer OTHER, SELFPAY ==
[2021-01-01 11:38] VITALS: BMI 32.9
[2021-02-03] MEDS: LACTATED RINGERS 1,000 ML 100 ML IV (12:50)
[2021-02-03 12:55] VITALS: BP 147/97; PULSE 70; RESP 18; TEMP 36.5; O2SAT 97
--- NOTE | 2021-02-03 13:35 | SUR.PREOP ---
DR DONOVAN INFORMS PT THAT SURGERY WILL BE CANCELLED FOR TODAY DUE TO RECENT COVD + TEST. (4 WEEKS PRIOR BUT NEG TODAY) DR DONOVAN'S OFFICE TO RESCHEDULE SURGEERY. IV DC'D, PT GIVEN GINGERALE AND AMBULATES ON HIS OWN TO WAITING ROOM
== END 2021-02-03 13:43 | disposition home or self-care (01) ==
LOC: OR 12:18
PROVIDERS: Referring Provider Surgery; Visit Provider Surgery
DX: K43.9 Ventral hernia without obstruction or gangrene (principal); Z53.09 Procedure and treatment not carried out because of other contraindication
CPT/HCPCS: 49560; 82962

== ENCOUNTER → 2021-02-23 09:35 | Outpatient (CLI) | payer OTHER, SELFPAY ==
[2021-02-09 09:38] VITALS: BMI 32.9
[2021-02-23 12:48] LABS: COVID19 -Nasal RAPID Negative (Negative)
== END ==
PROVIDERS: Visit Provider Surgery
DX: Z20.822 Contact with and (suspected) exposure to COVID-19 (principal)
CPT/HCPCS: 87635; C9803

== ENCOUNTER 2021-02-24 15:06 | Observation (INO) | payer OTHER, SELFPAY ==
[2021-02-09 09:38] VITALS: BMI 32.9
[2021-02-24] VITALS (14 sets, daily range): BP systolic 130–151; BP diastolic 77–103; PULSE 55–76; RESP 12–20; TEMP 36.3–37.1; O2SAT 96–100; BMI 33.3
[2021-02-24] MEDS: GABAPENTIN 300 MG CAPSULE PO (11:01)
[2021-02-24] MEDS: ACETAMINOPHEN 325 MG TABLET 975 MG PO (11:01)
--- NOTE | 2021-02-24 11:14 | P.HP_ITS ---
History of Present Illness History of Present Illness [place] [facility] [place]: 45-year-old man underwent a open sigmoid colectomy and subsequently developed an incisional or ventral hernia. He is here today for elective repair. Previously seen 01/01 with plans to proceed with the operation at that point however he developed asymptomatic COVID at his operation has been postponed for 6 weeks. This point he is feeling fairly well no nausea vomiting has incisional pain. No episodes of bowel obstruction secondary to hernia. Patient History Medical History Asthma Chest pain (04/15/20) Diverticulitis HLD (hyperlipidemia) HTN (hypertension) Low back pain Pancreatitis Sciatica Surgical History History of esophagogastroduodenoscopy (EGD) History of lumbar spinal fusion (05/06/20) Hx of appendectomy Hx of colectomy (~07/2020) Hx of left knee surgery Family & Social History Social History: household members spouse,children Tobacco & Substance use: Tobacco type cigarettes Smoking Status Former smoker alcohol intake current alcohol intake frequency holiday/special occasion Substance Use Type marijuana Meds Home Medications and Allergies Home Medications Medication Instructions Recorded Confirmed Type amlodipine 10 mg tablet (Norvasc) 10 mg PO DAILY 04/29/20 02/24/21 History lisinopril 40 mg tablet 40 mg PO DAILY 04/29/20 02/24/21 History acetaminophen 325 mg capsule 650 mg PO QID PRN #60 cap 07/31/20 02/24/21 Rx (Tylenol) oxycodone 5 mg tablet 5 mg PO Q4H PRN #30 tab 02/09/21 02/24/21 Rx oxycodone 5 mg tablet 5 mg PO Q4H PRN #60 tab 02/16/21 02/24/21 Rx Allergies Allergy/AdvReac Type Severity Reaction Status Date / Time codeine Allergy Mild ITCHING Verified 02/24/21 11:10 methylprednisolone AdvReac Severe Hypertension, Verified 02/24/21 11:10 chest pain prednisone AdvReac Severe Hypertension, Verified 02/24/21 11:10 chest pain Exam Narrative Exam Narrative: GENERAL-well developed adult male, no acute distress HEENT-no scleral icterus, hearing intact NECK-no JVD, trachea midline CVS- regular rate, no peripheral edema RESP-unlabored respiratory effort, no audible wheezing GI-soft, reducible midline incisional hernia MSK-no cyanosis or clubbing, extremities without deformity SKIN-warm, dry NEURO-alert and oriented, no focal deficits PYSCH-Appropriate mood and affect Assessment & Plan Assessment and plan (1) Incisional hernia: Qualifiers: Obstruction and gangrene presence: without obstruction or gangrene Qualified Code(s): K43.2 - Incisional hernia without obstruction or gangrene Status: Acute Assessment & Plan narrative: 45-year-old man with a large incisional ventral hernia here for elective repair. Plan for open retro rectus hernia repair with mesh. Technical details of the operation were discussed with patient. Operative risks including bleeding, infection, damage to surrounding structures, bowel injury, hernia recurrence, seroma formation were discussed. Postoperative recovery was discussed. His questions have been answered he is in agreement with this plan will proceed.
[2021-02-24] MEDS: LACTATED RINGERS 1,000 ML 100 ML IV ×3 (11:30→17:06)
[2021-02-24] MEDS: SCOPOLAMINE 1 PATCH TOP (11:36)
[2021-02-24] MEDS: CEFAZOLIN VIAL 3 GM in SODIUM CHLORIDE 0.9% 100 ML 200 ML IV (11:51)
--- NOTE | 2021-02-24 11:59 | SUR.OPER ---
Supine on padded OR bed, head on pillow, arms secured on padded arm boards at <90 degrees abduction, legs uncrossed, gel pad under heels, pillow under knees, safety belt at thigh, tape over blanket over lower legs.
[2021-02-24] MEDS: BUPIVACAINE 0.25% (PF) VIAL 30 ML INJ (12:04)
[2021-02-24] MEDS: SODIUM CHLORIDE 0.9% 1,000 ML, GENTAMICIN 80 MG IRR (13:21)
[2021-02-24] MEDS: fentaNYL 100 MCG/2 ML INJ IV ×4 (15:18→15:44)
[2021-02-24] MEDS: OXYCODONE IR 5 MG TABLET PO ×2 (15:22→16:19)
[2021-02-24] MEDS: ONDANSETRON 4 MG/2 ML INJ IV ×2 (16:23→19:14)
--- NOTE | 2021-02-24 18:08 | PM.OP.1 ---
Operative Date/Time/Diagnoses Date of procedure: 02/24/21 Time of procedure: 18:08 Pre-op diagnosis: Incisional ventral hernia Post-op diagnosis: same Procedure & Clinicians Procedure: Exploratory laparotomy Lysis of adhesions Component seperation with mycocutaneous flap Implantation of mesh Same procedure as scheduled: Yes Indications: Initial incisional hernia sp laparoscopic assisted sigmoid colectomy for diverticular stricture Surgeon: Rojelio Schaffer Operative Notes Findings: complex abdominal wall defect. Multiple hernias within the midline fascia. small bowel densely adherent to midline single partial thickness serosal tear to small bowel-imbricated retrorectus placement of 6 x 6 inch soft mesh seroma capsule excised from midline subcutaneous tissue Specimen(s): none sent Applied: drain(s) Estimated Blood Loss (mL): 100 Procedure in detail: Patient was brought to the operating room placed supine on the table. Received Ancef. General anesthesia was induced he was intubated with an endotracheal tube. Bilateral lower extremity compression devices were applied. Prepped draped sterile fashion. Time-out performed. The prior midline scar was excised. Subcutaneous tissues were divided. The fascia was grasped elevated and sharply incised. The abdomen was entered atraumatically. Within the wall the abdomen there was a 4 x 4 cm cystic appearing structure that had clear fluid within it likely an old seroma there was no purulence. The wall of the cavity was excised. The midline contained multiple hernia defects along its length. The small bowel was densely adherent to the midline and a complete it he has healed lysis was performed in order to release the intestinal content from the anterior abdominal wall. This was performed using sharp dissection. One partial thickness serosal tear was observed on the small bowel of no enteric content could be expressed from this and it was imbricated with silk suture tested again there was again no leak of any content. With the aid he has healed lysis complete the entirety of the hernia sac was excised. The next the retro rectus plane was entered and the posterior sheath was dissected off of the rectus muscle bilaterally running the entire span of the midline incision. The posterior sheath was then closed in a running fashion using 2 0 PDS. The retro rectus space measured 6 x 6 inches. A 6 x 6 Bard soft mesh (large pore polypropelene) was selected the abdominal wall and retro rectus space was copiously irrigated with antibiotic solution. The mesh was then placed into position so that the entire midline was covered and the mesh extended 3 in on each side. Mesh was then secured to the posterior sheath using interrupted Ethibond suture. Next skin flaps were raised bilaterally to expose the anterior sheath. The anterior sheath did not close tension-free and therefore an anterior component release was performed on the right side. The rectus muscle was identified and lateral to the rectus muscle the external oblique aponeurosis was incised for a length of 4 cm creating a myocutaneous flap, releaseing the external oblique from the underlaying internal oblique with care to avoid the neurovascular structures. It was not necessary to release the opposite side as the anterior sheath now closed without any tension. #1 PDS was run to close the anterior layer. A 10F Sg drain was placed anterior to the anterior fascia. The subcutaneous tissue was closed with Vicryl skin with monocyrl followed by dermabond and steri strips. Drain brought out RLQ.
[2021-02-24] MEDS: CEFAZOLIN 1 GM VIAL 2 GM IV (18:53)
[2021-02-24] MEDS: OXYCODONE IR 10 MG TABLET PO (18:59)
[2021-02-24] MEDS: ACETAMINOPHEN 325 MG TABLET 650 MG PO (19:04)
[2021-02-24] MEDS: HYDROMORPHONE 1 MG INJ IV (20:47)
--- NOTE | 2021-02-24 21:54 | PC.ADMIT ---
[address] Admission Note: The patient,eSnthil Rubi,45 y/o, was given written information regarding hospital policies, unit procedures and contact persons. Patient's smoking status: Former smoker. Vital Signs - 8 hr 02/24/21 15:03 02/24/21 15:08 02/24/21 15:13 Temperature 98.8 F Pulse Rate 64 55 L 57 L Respiratory Rate 14 14 12 Blood Pressure 141/89 H 135/94 H 141/94 H Pulse Oximetry 96 98 96 02/24/21 15:28 02/24/21 15:45 02/24/21 15:55 Temperature 98.8 F 98.0 F 98.0 F Pulse Rate 70 56 L 60 Respiratory Rate 16 16 16 Blood Pressure 130/90 138/98 H 144/103 H Pulse Oximetry 96 98 97 02/24/21 16:25 02/24/21 16:35 02/24/21 17:05 Temperature 98.0 F 97.4 F L 97.3 F L Pulse Rate 69 66 72 Respiratory Rate 16 19 20 Blood Pressure 138/78 134/96 H 143/92 H Pulse Oximetry 98 97 97 02/24/21 17:35 02/24/21 18:35 02/24/21 19:06 Temperature 97.8 F 97.8 F Pulse Rate 76 70 Respiratory Rate 20 18 20 Blood Pressure 130/93 H 134/85 Pulse Oximetry 96 96 02/24/21 20:45 Temperature 97.8 F Pulse Rate 68 Respiratory Rate 19 Blood Pressure 138/77 Pulse Oximetry 98 Pt arrived to floor @ 1635. A/O Abdomen rounded, binder in place. MARISELA intact/patent. Med w/oxy w/no relief, Given Dialudid IVP @ 2054 w/ relief. IVF infusing as per orders via pump w/o incidence. Tolerating diet, void QS Call light w/in reach, bed alarm on for pt safety. Continue w/plan of care.
[2021-02-25] MEDS: ACETAMINOPHEN 325 MG TABLET 650 MG PO ×2 (00:05→05:11)
[2021-02-25] MEDS: HYDROMORPHONE 1 MG INJ IV (00:05)
[2021-02-25 00:13] VITALS: BP 147/96; PULSE 60; RESP 19; TEMP 36.4; O2SAT 96
[2021-02-25] MEDS: OXYCODONE IR 10 MG TABLET PO ×3 (01:25→08:36)
[2021-02-25] MEDS: CEFAZOLIN 1 GM VIAL 2 GM IV ×2 (01:26→08:37)
[2021-02-25] MEDS: LACTATED RINGERS 1,000 ML 100 ML IV (02:48)
[2021-02-25] MEDS: ONDANSETRON 4 MG/2 ML INJ IV (02:48)
[2021-02-25 05:00] VITALS: BP 137/88; PULSE 70; RESP 18; TEMP 36.5; O2SAT 98
[2021-02-25] MEDS: KETOROLAC 30 MG/ML VIAL IV (07:05)
[2021-02-25] MEDS: lisinopriL 20 MG TABLET 40 MG PO (08:36)
[2021-02-25] MEDS: AMLODIPINE 5 MG TABLET 10 MG PO (08:36)
[2021-02-25 09:00] VITALS: BP 138/81; PULSE 58; RESP 19; TEMP 36.4; O2SAT 98
--- NOTE | 2021-02-25 11:22 | PC.NURSE ---
Discharge: Pt feels ready to d/c home. MD here and gave instructions for d/c. Pt is tolerating diet w/out problems. Vds w/out diff. Reports po pain meds are effective. Minimal flatus and enc to go slow on his diet. Has a scope patch on and he needs to take that off at 72 hours - placed yesterday or sooner if he doesn't need it. Stevenson teaching given. He understands care for same and instruction sheet given. Reviewed d/c packet. Rx has been e-sent. Questions answered. Pt d/c home via auto w/spouse. Reports no concerns.
--- NOTE | 2021-02-25 11:35 | CM.DANOTE ---
DCP: Case received, EMR reviewed and met with patient. Introduced self and role. Was able to obtain information from patient regarding his baseline activity status prior to hospitalization. DCP assessment completed with information currently available. Patient is a 45 year old male who admitted yesterday to the care of the surgical team. PCP: None at this time, resource given. Payer: confirmed: Diana. Patient came to the hospital via private vehicle for a surgical procedure. Patient had been here recently for a colectomy, and had developed an incisional hernia. He was here for exploratory laparatomy/hernia repair. Met with patient in his room. He is alert and oriented, and independent at his baseline. He resides in [place] with his spouse, Lina. He is employed at [employer]. 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 P: Patient is to be discharged home today. Ijeoma Lance RN/[employer] Engineer
== END 2021-02-25 11:20 | disposition home or self-care (01) ==
LOC: OR 02-25 09:12 → AC 02-25 09:12
PROVIDERS: Admitting Provider Surgery; Referring Provider Surgery; Visit Provider Surgery
PROC: (CPT 15734; principal; 2021-02-24 10:45)
DX: K43.2 Incisional hernia without obstruction or gangrene (principal); I10 Essential (primary) hypertension; E78.5 Hyperlipidemia, unspecified; J45.909 Unspecified asthma, uncomplicated; Z86.16 Personal history of COVID-19; Z90.49 Acquired absence of other specified parts of digestive tract
CPT/HCPCS: 15734; 49560; 49568; C1781; G0378; J0330; J0690; J1100; J1170; J1885; J2405; J2704; J3010

== ENCOUNTER 2021-03-27 17:41 | Emergency (ER) | payer OTHER, SELFPAY ==
[2021-03-27 13:11] VITALS: BMI 33.3
[2021-03-27 18:11] VITALS: BP 123/85; PULSE 76; RESP 18; TEMP 36.6; O2SAT 100; BMI 32.1
--- NOTE | 2021-03-27 18:23 | DI.CT.S_ITS ---
PROCEDURE: CT ABDOMEN PELVIS W CON INDICATIONS: post sx complication TECHNIQUE: After the administration of intravenous contrast, axial sections acquired from the lung bases to the pubic symphysis. Coronal and sagittal reformats were performed. For radiation dose reduction, the following was used: automated exposure control, adjustment of mA and/or kV according to patient size. COMPARISON: [facility], CT, CT ABDOMEN PELVIS W CON, 07/08/2020, 16:25. [facility], CT, CT ABDOMEN PELVIS W CON, 08/26/2020, 11:47. FINDINGS: Image quality: Excellent. Lung bases: Small hiatal hernia and several moderately prominent periesophageal lymph nodes in the lower mediastinum. There is eccentric wall thickening along the right aspect of the distal esophagus at the GE junction. Heart: No significant findings. ABDOMEN: Liver: Normal size and density. No suspicious mass. Gallbladder: Normal Biliary ducts: Unremarkable. Pancreas: Unremarkable. Spleen: Normal size. Adrenal Glands: No nodules. Kidneys and Ureters: Unremarkable. Stomach and Bowel: Stomach, small bowel loops, and colon are unremarkable. Occasional diverticula in the sigmoid colon. There is a bowel anastomosis in the right upper quadrant. Peritoneum: No abnormal intraperitoneal fluid. No free air. Ventral Wall: There is a large subcutaneous fluid collection along the anterior abdominal wall at and to the right of midline measuring about 15.9 x 13.6 x 7.2 cm. There is also unencapsulated fluid and moderate induration involving the right lateral abdominal wall muscles and intramuscular planes. No suspicious gas in the soft tissues. There is a healing midline incision seen. There is a trace amount of which is likely preperitoneal fluid between the muscle and peritoneal cavity measuring about 0.8 cm in maximal thickness, likely postoperative seroma/hematoma. Abdominal Nodes: No retroperitoneal or mesenteric adenopathy by size criteria. Vessels: Aorta and inferior vena cava are normal in size. PELVIS: Pelvic Organs: Unremarkable. Bladder: Unremarkable. Pelvic Nodes: No enlarged lymph nodes. Miscellaneous: No hernias are seen. Bones: There are surgical changes at the L4-5 level in the lumbar spine stabilizing spondylosis.. IMPRESSION: 1. Large subcutaneous ventral wall fluid collection, probably seroma less likely hematoma, unlikely to be abscess given lack of thick wall and lack of significant inflammation. 2. There is trace, expected postoperative preperitoneal fluid, likely mesh associated seroma. 3. There is eccentric distal esophageal wall thickening and periesophageal lymph nodes. Findings are concerning for esophageal pathology and upper endoscopy is recommended. Dictated by: Aylin Reynolds M.D. on 03/27/2021 at 19:52 Approved by: Aylin Reynolds M.D. on 03/27/2021 at 20:04
[2021-03-27 18:44] LABS: Add Manual Diff / Slide Review NO; Basophils Absolute Auto 100 /uL (0-100); Basophils Percent Auto 0.9 % (0-2); Eosinophils Absolute Auto 200 /uL (0-450); Eosinophils Percent Auto 1.8 % (2-4); Hematocrit 41.8 % (41-53); Hemoglobin 14.2 g/dL (13.5-17.5); Lymphocytes Absolute Auto 2200 /uL (1100-4500); Lymphocytes Percent Auto 20.7 % (25-40); Mean Corpuscular HGB Conc 33.9 % (30-36); Mean Corpuscular Hemoglobin 29.3 PG (26-34); Mean Corpuscular Volume 86.4 fL (80-100); Monocytes Absolute Auto 800 /uL (0-900); Monocytes Percent Auto 7.3 % (3-14); Neutrophils Absolute Auto 7400 /uL (1500-7000); Neutrophils Percent Auto 69.3 % (50-75); Platelet Count 271 X10^3/uL (150-400); Red Blood Cell Count 4.84 X10^6/uL (4.5-5.9); Red Cell Distribution Width 13.3 % (11.6-14.8); White Blood Cell Count 10.7 X10^3/uL (4.5-11.0)
[2021-03-27 18:59] LABS: Alanine Aminotransferase 27 IU/L (<50); Albumin Globulin Ratio 1.6 (1.0-2.8); Alkaline Phosphatase 78 U/L (38-126); Aspartate Aminotransferase 38 IU/L (17-59); BUN Creatinine Ratio 10.7 (6-22); Bilirubin Total 0.5 mg/dL (0.2-1.3); Blood Urea Nitrogen 13 mg/dL (9-20); Calcium 9.6 mg/dL (8.4-10.2); Carbon Dioxide 26 mmol/L (22-32); Chloride 100 mmol/L (98-107); Estimated Glomerular Filt Rate > 60.0 mL/min (>60); Globulin 3.1 g/dL (1.7-4.1); Glucose 94 mg/dL (70-100); HEMOLYSIS 25 (0-50); Lipase 48 U/L (23-300); Potassium 4.4 mmol/L (3.4-5.1); Sodium 133 mmol/L (137-145); Total Protein 8.1 g/dL (6.3-8.2)
--- NOTE | 2021-03-27 19:19 | ED.RECABL ---
HPI - Recheck/Abnormal Lab/Rx General Chief Complaint: Recheck/Abnormal Lab/Rx Stated Complaint: Right Abd Pain Post Surgery, Sent From Dr for CT Time Seen by Provider: 03/27/21 19:16 Source: patient Mode of arrival: Ambulatory Limitations: no limitations History of Present Illness HPI narrative: Who had a sigmoid colectomy in July 2020 developed an incisional or ventral hernia on 02/24/2021 he has since developed drainage around his incision site. He was placed on Keflex he finished a course of Bactrim few days ago but continues to have some right-sided abdominal pain which had been ongoing for the last 4-5 days He denies any fever or chills. He was sent to the ED by surgery for further evaluation including CT and labs. Related Data Home Medications Medication Instructions Recorded Confirmed amlodipine 10 mg tablet (Norvasc) 10 mg PO DAILY 04/29/20 03/18/21 lisinopril 40 mg tablet 40 mg PO DAILY 04/29/20 03/18/21 Previous Rx's Medication Instructions Recorded acetaminophen 325 mg capsule 650 mg PO QID PRN #60 cap 07/31/20 (Tylenol) docusate sodium 100 mg capsule 100 mg PO BID #30 cap 02/25/21 (Colace) ibuprofen 200 mg tablet 800 mg PO Q6H #60 tab 02/25/21 ondansetron HCl 4 mg tablet 4 mg PO Q8H PRN #30 tab 02/25/21 (Zofran) oxycodone 10 mg tablet 10 mg PO Q4H PRN #50 tab 03/18/21 sulfamethoxazole 800 1 tab PO Q12H #14 tab 03/18/21 mg-trimethoprim 160 mg tablet (Bactrim DS) cephalexin 500 mg capsule 500 mg PO QID #30 cap 03/27/21 Allergies Allergy/AdvReac Type Severity Reaction Status Date / Time codeine Allergy Mild ITCHING Verified 03/27/21 18:16 methylprednisolone AdvReac Severe Hypertension, Verified 03/27/21 18:16 chest pain prednisone AdvReac Severe Hypertension, Verified 03/27/21 18:16 chest pain Review of Systems Review of Systems Narrative: GENERAL: Denies chills, fatigue, malaise, fever, sweats, travel HEENT: Denies sinus pain, ear pain, sore throat, difficulty swallowing, neck pain RESPIRATORY: Denies dyspnea, cough, wheezing, hemoptysis, sputum. CARDIOVASCULAR: Denies chest pain, palpitations, orthopnea, edema GASTROINTESTINAL: Right-sided pain, see HPI : Denies dysuria, frequency, incontinence, hematuria, urinary retention, flank pain. MUSCULOSKELETAL: Denies weakness, joint pain, or bony pain SKIN: Drainage at incision, see HPI NEUROLOGIC: Denies weakness, dizziness, headache, numbness, change in speech, confusion PSYCHIATRIC: No concerning psychosocial issues. 12 point review of systems is negative except for those stated above and HPI Patient History Medical History Asthma Chest pain (04/15/20) Diverticulitis HLD (hyperlipidemia) HTN (hypertension) Low back pain Pancreatitis Sciatica Surgical History History of esophagogastroduodenoscopy (EGD) History of lumbar spinal fusion (05/06/20) Hx of appendectomy Hx of colectomy (~07/2020) Hx of left knee surgery Social History marital status: household members: spouse and children occupational status: employed Smoking Status: Former smoker alcohol intake: current Smoking Status: Former smoker alcohol intake frequency: holidays/special occasions only Substance Use Type: marijuana Exam Initial Vital Signs Initial Vital Signs: Vital Signs Temperature 97.9 F 03/27/21 18:11 Pulse Rate 76 03/27/21 18:11 Respiratory Rate 18 03/27/21 18:11 Blood Pressure 123/85 03/27/21 18:11 Pulse Oximetry 100 03/27/21 18:11 GENERAL: Alert well-appearing 45-year-old male HEENT: Head atraumatic,EOMI, pupils reactive, face symmetric CARDIOVASCULAR: Regular rate and rhythm without murmurs, rubs or gallops. RESPIRATORY: Breath sounds equal bilaterally, no wheezes rales or rhonchi. ABDOMEN: Soft, incision noted mildly tender on the right side no obvious or significant swelling, slight drainage as noted below EXTREMITIES: Normal range of motion, no clubbing or edema. Neurovascularly intact NEUROLOGICAL: Alert and oriented x4.Normal gait and speech. SKIN: Mild erythema and slight drainage at incision site near umbilicus Course Orders Ordered: ED Orders 03/27/21 18:23 CT abdomen pelvis w con Stat 03/27/21 18:28 Complete Blood Count AUTO DIFF Stat Comprehensive Metabolic Panel Stat Lipase Stat Vital Signs Vital signs: Vital Signs - 8 hr 03/27/21 18:11 Temperature 97.9 F Pulse Rate 76 Respiratory Rate 18 Blood Pressure 123/85 Pulse Oximetry 100 MDM - Recheck/Abnormal Lab/Rx Lab Data Result diagrams: 03/27/21 18:28 03/27/21 18:28 Labs: Lab Results 03/27/21 03/27/21 Range/Units 18:28 18:28 WBC 10.7 (4.5-11.0) X10^3/uL RBC 4.84 (4.5-5.9) X10^6/uL Hgb 14.2 (13.5-17.5) g/dL Hct 41.8 (41-53) % MCV 86.4 (80-100) fL MCH 29.3 (26-34) PG MCHC 33.9 (30-36) % RDW 13.3 (11.6-14.8) % Plt Count 271 (150-400) X10^3/uL Neut % (Auto) 69.3 (50-75) % Lymph % (Auto) 20.7 L (25-40) % [place] % (Auto) 7.3 (3-14) % Eos % (Auto) 1.8 L (2-4) % Baso % (Auto) 0.9 (0-2) % Neut # (Auto) 7400 H (0486-5674) /uL Lymph # (Auto) 2200 (1920-0333) /uL [place] # (Auto) 800 (0-900) /uL Eos # (Auto) 200 (0-450) /uL Baso # (Auto) 100 (0-100) /uL Sodium 133 L (137-145) mmol/L Potassium 4.4 (3.4-5.1) mmol/L Chloride 100 (98-107) mmol/L Carbon Dioxide 26 (22-32) mmol/L BUN 13 (9-20) mg/dL Creatinine 1.21 (0.66-1.25) mg/dL Estimated GFR > 60.0 (>60) mL/min BUN/Creatinine Ratio 10.7 (6-22) Glucose 94 (70-100) mg/dL Calcium 9.6 (8.4-10.2) mg/dL Total Bilirubin 0.5 (0.2-1.3) mg/dL AST 38 (17-59) IU/L ALT 27 (<50) IU/L Alkaline Phosphatase 78 (38-126) U/L Total Protein 8.1 (6.3-8.2) g/dL Albumin 5.0 (3.5-5.0) g/dL Globulin 3.1 (1.7-4.1) g/dL Albumin/Globulin Ratio 1.6 (1.0-2.8) Lipase 48 (23-300) U/L Urine Dip Bedside Urine Glucose Negative Bedside Urine Bilirubin - Negative Urine Specific [place] 1.01 Bedside Urine Occult Blood - Negative Bedside Urine pH 6.0 Bedside Urine Protein - Negative Bedside Urine Urobilinogen - Negative Bedside Urine Nitrite - Negative Bedside Urine Leukocytes - Negative Esterase Imaging Data CT scan - abdomen/pelvis: Radiologist's Impression: PROCEDURE:? CT ABDOMEN PELVIS W CON ? INDICATIONS:? post sx complication ? TECHNIQUE:? After the administration of intravenous contrast, axial sections acquired from the lung bases to the pubic symphysis.? Coronal and sagittal reformats were performed.? For radiation dose reduction, the following was used:? automated exposure control, adjustment of mA and/or kV according to patient size.? ? COMPARISON:? [facility], CT, CT ABDOMEN PELVIS W CON, 07/08/2020, 16:25.? [facility], CT, CT ABDOMEN PELVIS W CON, 08/26/2020, 11:47. ? FINDINGS:? Image quality:? Excellent.? ? Lung bases:? Small hiatal hernia and several moderately prominent periesophageal lymph nodes in the lower mediastinum.? There is eccentric wall thickening along the right aspect of the distal esophagus at the GE junction. Heart:? No significant findings. ? ABDOMEN: Liver:? Normal size and density.? No suspicious mass. Gallbladder:? Normal Biliary ducts:? Unremarkable.? ? Pancreas:? Unremarkable.? ? Spleen:? Normal size. Adrenal Glands:? No nodules. Kidneys and Ureters:? Unremarkable.? ? ? Stomach and Bowel:? Stomach, small bowel loops, and colon are unremarkable.? Occasional diverticula in the sigmoid colon.? There is a bowel anastomosis in the right upper quadrant. Peritoneum:? No abnormal intraperitoneal fluid.? No free air.? ? Ventral Wall:? There is a large subcutaneous fluid collection along the anterior abdominal wall at and to the right of midline measuring about 15.9 x 13.6 x 7.2 cm.? There is also unencapsulated fluid and moderate induration involving the right lateral abdominal wall muscles and intramuscular planes.? No suspicious gas in the soft tissues.? There is a healing midline incision seen.? There is a trace amount of which is likely preperitoneal fluid between the muscle and peritoneal cavity measuring about 0.8 cm in maximal thickness, likely postoperative seroma/hematoma.? Abdominal Nodes:? No retroperitoneal or mesenteric adenopathy by size criteria.? Vessels:? Aorta and inferior vena cava are normal in size.? ? PELVIS: Pelvic Organs:? Unremarkable.? ? Bladder:? Unremarkable.? ? Pelvic Nodes: No enlarged lymph nodes.? Miscellaneous: No hernias are seen. ? ? ? Bones:? There are surgical changes at the L4-5 level in the lumbar spine stabilizing spondylosis.. ? ? IMPRESSION:? 1. Large subcutaneous ventral wall fluid collection, probably seroma less likely hematoma, unlikely to be abscess given lack of thick wall and lack of significant inflammation. 2. There is trace, expected postoperative preperitoneal fluid, likely mesh associated seroma. 3. There is eccentric distal esophageal wall thickening and periesophageal lymph nodes.? Findings are concerning for esophageal pathology and upper endoscopy is recommended.? ? ? Dictated by: Aylin Reynolds M.D. on 03/27/2021 at 19:52 ? ? [facility] Narrative Medical decision making narrative: Patient is postoperative 5 weeks he presenting with incisional drainage and swelling. He is afebrile without leukocytosis previously on antibiotics CT confirms seroma. Dr. Hinton surgery in emergency department is to see and evaluate patient. He will only taking patient back to his office for drainage of seroma. Discharge Plan Departure Patient Disposition: Home Clinical Impression: Seroma after procedure, Incisional hernia Instructions: DI for Cellulitis -- Adult Activity Restrictions/Additional Instructions: -Dr. Hinton is going to take you to his office to drainage Follow his instructions Return to emergency department if needed Prescriptions: No Action sulfamethoxazole-trimethoprim [Bactrim DS] 800-160 mg tablet 1 tab PO Q12H Qty: 14 RF: 0 oxycodone 10 mg tablet 10 mg PO Q4H PRN (Reason: pain) Qty: 50 RF: 0 cephalexin 500 mg capsule 500 mg PO QID Qty: 30 RF: 0 amlodipine [Norvasc] 10 mg Tablet 10 mg PO DAILY RF: 0 lisinopril 40 mg Tablet 40 mg PO DAILY RF: 0 ibuprofen 200 mg tablet 800 mg PO Q6H Qty: 60 RF: 0 docusate sodium [Colace] 100 mg capsule 100 mg PO BID Qty: 30 RF: 0 ondansetron HCl [Zofran] 4 mg tablet 4 mg PO Q8H PRN (Reason: nausea and vomiting) Qty: 30 RF: 0 acetaminophen [Tylenol] 325 mg capsule 650 mg PO QID PRN (Reason: pain) Qty: 60 RF: 0
== END 2021-03-27 19:21 | disposition home or self-care (01) ==
PROVIDERS: Emergency Provider Emergency Medicine
DX: L76.34 Postprocedural seroma of skin and subcutaneous tissue following other procedure (principal); K43.2 Incisional hernia without obstruction or gangrene
CPT/HCPCS: 36415; 74177; 80053; 81003; 83690; 85025; 99283; 99284

== ENCOUNTER → 2021-07-21 10:46 | Outpatient (CLI) | payer OTHER, SELFPAY ==
[2021-07-10 09:38] VITALS: BMI 33.3
--- NOTE | 2021-07-21 10:48 | DI.CT.S_ITS ---
PROCEDURE: CT ABDOMEN PELVIS W CON INDICATIONS: Recurrent abdominal wall seroma TECHNIQUE: After the administration of oral and IV contrast, axial sections were acquired from the lung bases to the pubic symphysis. Coronal and sagittal reformats were performed. For radiation dose reduction, the following was used: automated exposure control, adjustment of mA and/or kV according to patient size. COMPARISON: [facility], CT, CT ABDOMEN PELVIS W CON, 08/26/2020, 11:47. [facility], CT, CT ABDOMEN PELVIS W CON, 07/08/2020, 16:25. [facility], CT, CT ABDOMEN PELVIS W CON, 03/27/2021, 19:05. FINDINGS: Image quality: Excellent. Lung bases: Lung bases are clear. There is a small hiatal hernia. Heart: No significant findings. ABDOMEN: Liver: Unremarkable. Gallbladder: Unremarkable. Biliary ducts: Unremarkable. Pancreas: Unremarkable. Spleen: Unremarkable. Adrenal Glands: Unremarkable. Kidneys and Ureters: Unremarkable. Stomach and Bowel: Partial colectomy. There is a moderate amount of stool in colon. Stomach, small bowel loops, and colon are normal in caliber. Diverticulosis without acute diverticulitis. Peritoneum: No abnormal intraperitoneal fluid. No free air. Ventral Wall: There is a midline surgical scar in the anterior abdominal wall. A subcutaneous fluid collection is present measuring 4.1 cm AP, 10.5 cm transverse and 9.3 cm cephalocaudal. Compared to the last exam, it has slightly decreased in size (previously 6.9 cm AP, 15.9 cm transverse and 13.3 cm cephalocaudal. Abdominal Nodes: No retroperitoneal or mesenteric adenopathy by size criteria. Vessels: Aorta and inferior vena cava are normal in size. PELVIS: Pelvic Organs: Unremarkable. Bladder: Unremarkable. Pelvic Nodes: No enlarged lymph nodes. Miscellaneous: No inguinal hernias are seen. Bones: Degenerative and postsurgical changes in lumbar spine. IMPRESSION: 1. There is a subcutaneous fluid collection in the anterior abdominal wall measuring 4.1 x 10.5 x 9.3 cm, decreased in size (previously 6.9 x 15.9 x 13.3 cm). It is most likely a a seroma and less likely an abscess. 2. Diverticulosis without diverticulitis. 3. Small hiatal hernia. Dictated by: [email or web address] Mon M.D. on 07/21/2021 at 12:54 Approved by: Gurmeet Mon M.D. on 07/21/2021 at 13:45
== END ==
PROVIDERS: Referring Provider Surgery; Visit Provider Surgery
DX: T88.8XXA Other specified complications of surgical and medical care, not elsewhere classified, initial encounter (principal); K44.9 Diaphragmatic hernia without obstruction or gangrene; K57.90 Diverticulosis of intestine, part unspecified, without perforation or abscess without bleeding
CPT/HCPCS: 74177

== ENCOUNTER → 2021-08-07 10:02 | Outpatient (CLI) | payer OTHER, SELFPAY ==
[2021-07-10 09:38] VITALS: BMI 33.3
--- NOTE | 2021-08-07 | DI.US.S_ITS ---
PROCEDURE: US DRAIN SOFT TISSUE COMPARISON: None. INDICATIONS: POST-OP SEROMA DRAINAGE TECHNIQUE: Potential risks and benefits of procedure fully explained the patient. Informed written consent obtained from the patient on August 07, 2021. Access site for anterior abdominal wall brent-incisional seroma localized using ultrasound guidance. Access site prepped and draped in usual sterile fashion. Access site locally anesthetized using approximately 6 cubic centimeters 1% lidocaine solution. 20 gauge spinal needle was advanced under ultrasound guidance into anterior abdominal wall seroma and approximately 1 are 45 cubic centimeters of clear brownish colored fluid was aspirated. Procedure was terminated at this point. Access needle was removed. No immediate complications. IMPRESSION: Successful ultrasound-guided aspiration of anterior abdominal wall brent-incisional seroma. Dictated by: Tiarra Huff MD, PhD on 08/07/2021 at 15:13 Approved by: Tiarra Huff MD, PhD on 08/07/2021 at 15:15
== END ==
LOC: US 10:04
PROVIDERS: PCP Physician Assistant Medical; Referring Provider Surgery; Visit Provider Surgery
DX: T88.8XXD Other specified complications of surgical and medical care, not elsewhere classified, subsequent encounter (principal)
CPT/HCPCS: 10030